=== PATIENT | male | born 1965 | race Caucasian/White ===

== ENCOUNTER 2016-10-17 15:38 | Inpatient (IN) | payer MEDICARE, MEDICAID ==
--- NOTE | 2016-10-17 16:03 | EDM.PDOC ---
ED HPI GENERAL MEDICAL PROBLEM - General Stated Complaint: TOE INFECTED, [id number] Time Seen by Provider: 10/17/16 15:45 Source of Information: Reports: Patient History Limitations: Reports: No Limitations - History of Present Illness INITIAL COMMENTS - FREE TEXT/NARRATIVE: This 50 yo male patient reports to the ED with a 2 day history of right 3rd toe swelling. The patient reports his toe started to swell about 2-3 days ago and has gotten worse. The patient is a diabetic and has had his right 1st and 2nd toe amputated by Dr. Holland in the past. The patient would like to have Dr. Holland evaluate and treat him, but she is currently not in the office. A call to the clinic resulted in Dr. Holland returning this Sunday. Onset Date: 10/14/16 Duration: Constant, Getting Worse Location: Reports: Lower Extremity, Right Severity: Moderate Improves with: Reports: None Worsens with: Reports: None Associated Symptoms: Reports: No Other Symptoms - Related Data Allergies Allergy/AdvReac Type Severity Reaction Status Date / Time vancomycin Allergy Hives Verified 10/17/16 16:06 Home Meds: Home Meds Albuterol [Proair HFA] 1 puff INH Q6HR PRN 01/29/15 [History] Aspirin [Halfprin] 81 mg PO DAILY 01/29/15 [History] Docusate Sodium [Colace] 50 mg PO BID PRN 01/29/15 [History] Fluticasone/Salmeterol [Advair 250-50] 1 puff INH BID 01/29/15 [History] Furosemide [Lasix] 40 mg PO BID 01/29/15 [History] Insulin Glarg,Human.Rec.Analog [LantUS Solostar] 17 units SQ BEDTIME 01/29/15 [ History] Isosorbide Mononitrate [Isosorbide Mononitrate ER] 30 mg PO DAILY 01/29/15 [ History] Losartan [Cozaar] 100 mg PO DAILY 01/29/15 [History] Metoprolol Succinate [Toprol XL] 50 mg PO DAILY 01/29/15 [History] Omeprazole 20 mg PO .AM 01/29/15 [History] Pregabalin [Lyrica] 50 mg PO TID 01/29/15 [History] Sertraline HCl 100 mg PO BID 01/29/15 [History] Simvastatin 10 mg PO BEDTIME 01/29/15 [History] SitaGLIPtin [Januvia] 100 mg PO DAILY 01/29/15 [History] buPROPion [Wellbutrin XL] 150 mg PO DAILY 01/29/15 [History] glipiZIDE [Glucotrol XL] 5 mg PO BID 01/29/15 [History] metFORMIN [Glucophage] 1,000 mg PO BID 01/29/15 [History] Acetaminophen [Tylenol] 650 mg PO Q4H PRN #0 tablet 02/08/15 [Rx] Collagenase Clostridium Hist. [Santyl] 30 gm TP BID #30 gm 02/08/15 [Rx] Hydrocodone/Acetaminophen [Hydrocodon-Acetaminophen 5-325] 1 each PO Q6H PRN # 30 tablet 02/08/15 [Rx] Lanolin/Mineral Oil [Eucerin Original Lotion] 500 ml TP BID #500 ml 02/08/15 [Rx ] Zolpidem [Ambien] 10 mg PO BEDTIME 04/04/15 [History] Naproxen [Naprosyn] 500 mg PO DAILY 05/30/16 [History] Sulfamethoxazole/Trimethoprim [Sulfamethoxazole-Tmp Ds Tablet] 1 tab PO BID [History] Past Medical History HEENT History: Reports: Impaired Vision, Other (See Below) Other HEENT History: WEARS CORRECTIVE LENS Cardiovascular History: Reports: High Cholesterol, Hypertension Respiratory History: Reports: Asthma, COPD, Other (See Below) Other Respiratory History: HX OF TOBACCO ABUSE Gastrointestinal History: Reports: Chronic Constipation, GERD Other Gastrointestinal History: esophageal varices Genitourinary History: Reports: None Musculoskeletal History: Reports: Arthritis, Back Pain, Chronic, Fracture Neurological History: Reports: Neuropathy, Diabetic Psychiatric History: Reports: Depression, Other (See Below) Other Psychiatric History: TOBACCO ABUSE Endocrine/Metabolic History: Reports: Diabetes, Type II Other Endocrine/Metabolic History: diabetic nephropathy Hematologic History: Reports: None Immunologic History: Reports: None Oncologic (Cancer) History: Reports: None Dermatologic History: Reports: Cellulitis Other Dermatologic History: open areas to R) ft - Infectious Disease History Infectious Disease History: Reports: Chicken Pox - Past Surgical History GI Surgical History: Reports: Colonoscopy, Hernia Repair/Other Musculoskeletal Surgical History: Reports: Amputation, Other (See Below) Social & Family History - Tobacco Use Smoking Status *Q: Current Every Day Smoker Years of Tobacco use: 40 Packs/Tins Daily: 0.3 Second Hand Smoke Exposure: Yes - Caffeine Use Caffeine Use: Reports: None - Alcohol Use Days Per Week of Alcohol Use: 7 Number of Drinks Per Day: 12 Total Drinks Per Week: 84 - Recreational Drug Use Recreational Drug Use: Yes Drug Use in Last 12 Months: Yes Recreational Drug Type: Reports: Marijuana/Hashish Recreational Drug Use Frequency: Socially Recreational Drug Last Use: 05/30/16 Review of Systems - Review of Systems Review Of Systems: ROS reveals no pertinent complaints other than HPI. ED EXAM, GENERAL - Physical Exam Exam: See Below Exam Limited By: No Limitations General Appearance: Alert, WD/WN, Moderate Distress Eye Exam: Bilateral Eye: EOMI, Normal Inspection, PERRL Ears: Normal External Exam, Normal Canal, Hearing Grossly Normal, Normal TMs Nose: Normal Inspection, Normal Mucosa, No Blood Throat/Mouth: Normal Inspection, Normal Lips, Normal Teeth, Normal Gums, Normal Oropharynx, Normal Voice, No Airway Compromise Head: Atraumatic, Normocephalic Neck: Normal Inspection, Supple, Non-Tender, Full Range of Motion Respiratory/Chest: No Respiratory Distress, Lungs Clear, Normal Breath Sounds, No Accessory Muscle Use, Chest Non-Tender Cardiovascular: Normal Peripheral Pulses, Regular Rate, Rhythm, No Edema, No Gallop, No JVD, No Murmur, No Rub GI/Abdominal: Normal Bowel Sounds, Soft, Non-Tender, No Organomegaly, No Distention, No Abnormal Bruit, No Mass (Male) Exam: Deferred Rectal (Males) Exam: Deferred Back Exam: Normal Inspection, Full Range of Motion, NT Extremities: Other (The patient does not have any feeling in his feet, but reports increased swelling in his right 3rd toe. ) Neurological: Alert, Oriented, CN II-XII Intact, Normal Cognition, No Motor/ Sensory Deficits Psychiatric: Normal Affect, Normal Mood Skin Exam: Other (The patient's right 3rd toe is erythematous.) Lymphatic: No Adenopathy Course - Vital Signs Last Recorded V/S: Last Vital Signs Temp 37.3 C 10/17/16 17:20 Pulse 91 10/17/16 17:20 Resp 20 10/17/16 17:20 BP 98/60 10/17/16 17:20 Pulse Ox 95 10/17/16 17:20 - Orders/Labs/Meds Orders: Active Orders 24 hr Category Date Time Status CULTURE BLOOD [BC] Stat Lab 10/17/16 15:55 Received CULTURE BLOOD [BC] Stat Lab 10/17/16 16:00 Received Piperacillin/Tazobactam [Zosyn] 3.375 gm Med 10/17/16 17:42 Ordered Sodium Chloride 0.9% [Normal Saline] 100 ml IV ONETIME Blood Culture x2 Reflex Set [OM.PC] Stat Oth 10/17/16 15:45 Ordered Medication Orders Piperacillin Sod/Tazobactam (Sod 3.375 gm/ Sodium Chloride) 100 mls @ 200 mls/ hr IV ONETIME ONE Stop: 10/17/16 18:11 Labs: Laboratory Tests 10/17/16 10/17/16 10/17/16 Range/Units 15:55 15:55 15:55 WBC 17.8 H (5.0-10.0) 10^3/uL RBC 3.89 L (4.6-6.2) 10^6/uL Hgb 12.6 L (14.0-18.0) g/dL Hct 38.1 L (40.0-54.0) % MCV 97.9 (80-100) fL MCH 32.4 (27.0-34.0) pg MCHC 33.1 (33.0-35.0) g/dL Plt Count 162 (150-450) 10^3/uL Neut % (Auto) 86.9 H (42.2-75.2) % Lymph % (Auto) 6.5 L (20.5-50.1) % [place] % (Auto) 5.9 (2-8) % Eos % (Auto) 0.6 L (1.0-3.0) % Baso % (Auto) 0.1 (0.0-1.0) % Add Manual Diff Yes Neutrophils % (Manual) 89 % Lymphocytes % (Manual) 7 % Monocytes % (Manual) 4 % Sodium 135 (135-145) mmol/L Potassium 4.5 (3.6-5.0) mmol/L Chloride 98 L (101-111) mmol/L Carbon Dioxide 22.0 (21.0-31.0) mmol/L Anion Gap 19.5 BUN 19 H (7-18) mg/dL Creatinine 1.2 (0.6-1.3) mg/dL Est Cr Clr Drug Dosing 68.09 mL/min Estimated GFR (MDRD) > 60 BUN/Creatinine Ratio 15.83 Glucose 168 H (74-105) mg/dL Lactic Acid 2.3 H (0.5-2.2) mmol/L Calcium 9.2 (8.4-10.2) mg/dl Total Bilirubin 0.5 (0.2-1.0) mg/dL AST 24 (10-42) IU/L ALT 14 (10-60) IU/L Alkaline Phosphatase 85 (42-121) IU/L Total Protein 8.3 H (6.7-8.2) g/dl Albumin 3.5 (3.2-5.5) g/dl Globulin 4.8 Albumin/Globulin Ratio 0.73 Meds: Medications Generic Name Dose Route Start Last Admin Trade Name Freq PRN Reason Stop Dose Admin Piperacillin Sod/Tazobactam 100 mls @ 200 mls/hr 10/17/16 17:42 Sod 3.375 gm/ Sodium Chloride IV 10/17/16 18:11 ONETIME ONE - Re-Assessments/Exams Free Text/Narrative Re-Assessment/Exam: 10/17/16 17:46 Dr. Holland (podiatry) came to the ED to evaluate the patient. Dr. Holland is going to do surgery on the patient's foot tomorrow. Dr. Holland would like the patient to get a dose of Zosyn in the ED and admit the patient under Dr. Ralph for medical management. Departure - Departure Time of Disposition: 17:49 Disposition: Admitted As Inpatient 65 Condition: Poor Clinical Impression: Osteomyelitis Qualifiers: Osteomyelitis type: unspecified type Osteomyelitis location: foot Laterality: right Qualified Code(s): M86.9 - Osteomyelitis, unspecified - Discharge Information Care Plan Goals: Discussed the examination, lab, x-ray and consult results with Dr. Holland with Dr. Ralph. Dr. Ralph accepted the patient for continued evaluation and management as a inpatient at [facility] in [place]. - My Orders Last 24 Hours: My Active Orders 10/17/16 15:45 Blood Culture x2 Reflex Set [OM.PC] Stat 10/17/16 15:55 CULTURE BLOOD [BC] Stat 10/17/16 16:00 CULTURE BLOOD [BC] Stat 10/17/16 17:42 Piperacillin/Tazobactam [Zosyn] 3.375 gm Sodium Chloride 0.9% [Normal Saline] 100 ml IV ONETIME - Assessment/Plan Last 24 Hours: My Active Orders 10/17/16 15:45 Blood Culture x2 Reflex Set [OM.PC] Stat 10/17/16 15:55 CULTURE BLOOD [BC] Stat 10/17/16 16:00 CULTURE BLOOD [BC] Stat 10/17/16 17:42 Piperacillin/Tazobactam [Zosyn] 3.375 gm Sodium Chloride 0.9% [Normal Saline] 100 ml IV ONETIME
[2016-10-17 16:25] LABS: CHLORIDE,CL 98 mmol/L (101-111); SODIUM,NA 135 mmol/L (135-145)
--- NOTE | 2016-10-17 16:36 | CR ---
Clinical history: 50-year-old male swelling right third toe. Interpretation: AP lateral right foot abnormal. New evidence amputation at the PIP joint right great toe and head of the proximal phalanx adjacent s econd toe since 30 May 2016 exam. Pronounced soft tissue swelling and bony dissolution distal phalanx adjacent third toe right forefoo t... presumably osteomyelitis (definitely abnormal since 30 May) Small heel spurs insertion plantar aponeurosis and Achilles tendon on the os calcis. No metatarsal o r proximal right foot fracture or dislocation. No foreign bodies.
[2016-10-17] MEDS ORDERED: Piperacillin/Tazobactam 3.375 GM in Sodium Chloride 0.9% 100 ML IV ONE (17:42)
--- NOTE | 2016-10-17 17:57 | PCM.CONSN ---
- General Info Date of Service: 10/17/16 Admission Dx/Problem (Free Text): Right foot infected diabetic toe Subjective Update: 50 y/o diabetic male seen in ER today for right foot infected 3rd toe. Pt states he noticed the toe becoming red and swollen about 3 days ago, it has progressively worsened since that time. He has noticed some drainage from the toe and has been dressing with a dry dressing since then. He does have h/o other toe amputations due to osteomyelitis. He denies any n/v/f/c today. He did just eat a bowl of oatmeal 2 hours ago. - Review of Systems General: Reports: Night Sweats - Patient Data Vitals - most recent: Last Vital Signs Temp 37.3 C 10/17/16 17:20 Pulse 91 10/17/16 17:20 Resp 20 10/17/16 17:20 BP 98/60 10/17/16 17:20 Pulse Ox 95 10/17/16 17:20 Weight - most recent: 99.79 kg Lab Results last 24 hrs: Laboratory Results - last 24 hr 10/17/16 10/17/16 10/17/16 Range/Units 15:55 15:55 15:55 WBC 17.8 H (5.0-10.0) 10^3/uL RBC 3.89 L (4.6-6.2) 10^6/uL Hgb 12.6 L (14.0-18.0) g/dL Hct 38.1 L (40.0-54.0) % MCV 97.9 (80-100) fL MCH 32.4 (27.0-34.0) pg MCHC 33.1 (33.0-35.0) g/dL Plt Count 162 (150-450) 10^3/uL Neut % (Auto) 86.9 H (42.2-75.2) % Lymph % (Auto) 6.5 L (20.5-50.1) % [place] % (Auto) 5.9 (2-8) % Eos % (Auto) 0.6 L (1.0-3.0) % Baso % (Auto) 0.1 (0.0-1.0) % Add Manual Diff Yes Neutrophils % (Manual) 89 % Lymphocytes % (Manual) 7 % Monocytes % (Manual) 4 % Sodium 135 (135-145) mmol/L Potassium 4.5 (3.6-5.0) mmol/L Chloride 98 L (101-111) mmol/L Carbon Dioxide 22.0 (21.0-31.0) mmol/L Anion Gap 19.5 BUN 19 H (7-18) mg/dL Creatinine 1.2 (0.6-1.3) mg/dL Est Cr Clr Drug Dosing 68.09 mL/min Estimated GFR (MDRD) > 60 BUN/Creatinine Ratio 15.83 Glucose 168 H (74-105) mg/dL Lactic Acid 2.3 H (0.5-2.2) mmol/L Calcium 9.2 (8.4-10.2) mg/dl Total Bilirubin 0.5 (0.2-1.0) mg/dL AST 24 (10-42) IU/L ALT 14 (10-60) IU/L Alkaline Phosphatase 85 (42-121) IU/L Total Protein 8.3 H (6.7-8.2) g/dl Albumin 3.5 (3.2-5.5) g/dl Globulin 4.8 Albumin/Globulin Ratio 0.73 Med Orders - Current: Current Medications Piperacillin Sod/Tazobactam (Sod 3.375 gm/ Sodium Chloride) 100 mls @ 200 mls/ hr IV ONETIME ONE Stop: 10/17/16 18:11 - Exam General: alert, oriented, no acute distress Physical Findings Comments:: right foot 3rd digit with erythema and edema present, it does have necrotic appearance to the skin of the 3rd toe with wound present to distal tip and also lateral which has some purulent drainage that is expressible from those areas. Pt is not sensate to that forefoot, 1st and 2nd partial amputations on the right foot also. Erythema is extending proximally from the 3rd digit to the forefoot. Foot is warm to touch, palpable DP/PT. Xrays of the right foot reveals osteolysis of distal 3rd digit distal to interphalangeal joint, MTPJ looks healthy, no gas is soft tissues. Consult PN Assessment/Plan Procedures: Procedures ANESTH LOWER LEG BONE SURG (05/31/16) ASSAY OF CK (CPK) (05/03/16) COMPLETE CBC W/AUTO DIFF WBC (06/11/16) COMPREHEN METABOLIC PANEL (06/11/16) CT HEAD/BRAIN W/O DYE (05/03/16) CT NECK SPINE W/O DYE (05/03/16) CULTR BACTERIA EXCEPT BLOOD (05/31/16) CULTURE AEROBIC IDENTIFY (05/31/16) CULTURE OTHR SPECIMN AEROBIC (05/31/16) EMERGENCY DEPT VISIT (06/11/16) EMERGENCY DEPT VISIT (05/03/16) EMERGENCY DEPT VISIT (05/03/16) EMERGENCY DEPT VISIT (04/04/15) GLUCOSE BLOOD TEST (06/11/16) HYDRATE IV INFUSION ADD-ON (06/11/16) HYDRATION IV INFUSION INIT (06/11/16) MICROBE SUSCEPTIBLE BRYON (05/31/16) MRI JNT OF LWR EXTRE W/O DYE (05/21/14) PARTIAL AMPUTATION OF TOE (05/31/16) PROTHROMBIN TIME (05/03/16) ROUTINE VENIPUNCTURE (06/11/16) TDAP VACCINE 7 YRS/> IM (05/03/16) THER/PROPH/DIAG INJ SC/IM (05/03/16) X-RAY EXAM OF HAND (05/03/16) Problem List Initiated/Reviewed/Updated: Yes Plan: Discussed with patient that we will not be able to save that toe, he understands. He will need to be admitted for IV antibiotics due to his foot infection, I will plan on doing the toe amputation with wash out tomorrow account support manager starting at 0630. He is to be NPO after midnight tonight. He will be started on IV Zosyn in the ER and continued on the floor. Cultures were taken in the ER and pending. Depending on what the foot looks like intra operatively, I think he should be able to go home tomorrow after the surgery. For tonight a dry dressing to the toe with post-op shoe, he can be WB on that foot.
[2016-10-17] MEDS ORDERED: Zolpidem 5 MG Tab PO PRN (18:19)
[2016-10-17] MEDS ORDERED: Ondansetron 4 MG/2 ML SDV IVPUSH PRN (18:19)
[2016-10-17] MEDS ORDERED: Polyethylene Glycol 3350 Powder 17 GM Packet PO PRN (18:19)
[2016-10-17] MEDS ORDERED: Sodium Chloride 0.9% 3,000 ML IV SCH (18:30)
--- NOTE | 2016-10-17 18:41 | PCM.HP ---
H&P History of Present Illness - General Date of Service: 10/17/16 Admit Problem/Dx: Right foot infected diabetic toe Right toe osteomyelitis Sepsis Source of Information: Patient History Limitations: Reports: No Limitations - History of Present Illness Initial Comments - Free Text/Narative: 50-year-old male with past medical history of diabetes mellitus type 2, asthma, tobacco abuse, polyneuropathy, insomnia, hypertension, GERD, diabetic nephropathy, COPD, depression presenting to the emergency room with swelling and redness of the right toes started 4 days ago and were getting worse. Patient does not remember injury but he stated that he has been doing carpets washed at home and think he wetted his foot for a long time so his shoe got tight on his toes. He denies pain or drainage from the foot, fever, chills, nausea, shortness breath, cough, chest pain, vomiting, or any other symptoms or concerns. In the emergency room x-ray of the foot was consistent with osteomyelitis in the third right toe. Dr. Holland, police commissioner was consulted who evaluated the patient and planned to do surgery on the right foot tomorrow morning. His WBC 17,000 with left shift. Lactic acid 2.3. Creatinine 1.2. Hemoglobin 12.6. Sodium 135. Potassium 4.5. Glucose 168. He received Zosyn IV in the emergency room. He is allergic to vancomycin. He denies history of MRSA. - Related Data Allergies/Adverse Reactions: Allergies Allergy/AdvReac Type Severity Reaction Status Date / Time vancomycin Allergy Hives Verified 10/17/16 18:28 Home Medications: Home Meds Albuterol [Proair HFA] 1 puff INH Q6HR PRN 01/29/15 [History] Aspirin [Halfprin] 81 mg PO DAILY 01/29/15 [History] Docusate Sodium [Colace] 50 mg PO BID PRN 01/29/15 [History] Fluticasone/Salmeterol [Advair 250-50] 1 puff INH BID 01/29/15 [History] Furosemide [Lasix] 40 mg PO BID 01/29/15 [History] Insulin Glarg,Human.Rec.Analog [LantUS Solostar] 17 units SQ BEDTIME 01/29/15 [ History] Isosorbide Mononitrate [Isosorbide Mononitrate ER] 30 mg PO DAILY 01/29/15 [ History] Losartan [Cozaar] 100 mg PO DAILY 01/29/15 [History] Metoprolol Succinate [Toprol XL] 50 mg PO DAILY 01/29/15 [History] Omeprazole 20 mg PO .AM 01/29/15 [History] Pregabalin [Lyrica] 50 mg PO TID 01/29/15 [History] Sertraline HCl 100 mg PO BID 01/29/15 [History] Simvastatin 10 mg PO BEDTIME 01/29/15 [History] SitaGLIPtin [Januvia] 100 mg PO DAILY 01/29/15 [History] buPROPion [Wellbutrin XL] 150 mg PO DAILY 01/29/15 [History] glipiZIDE [Glucotrol XL] 5 mg PO BID 01/29/15 [History] metFORMIN [Glucophage] 1,000 mg PO BID 01/29/15 [History] Acetaminophen [Tylenol] 650 mg PO Q4H PRN #0 tablet 02/08/15 [Rx] Collagenase Clostridium Hist. [Santyl] 30 gm TP BID #30 gm 02/08/15 [Rx] Hydrocodone/Acetaminophen [Hydrocodon-Acetaminophen 5-325] 1 each PO Q6H PRN # 30 tablet 02/08/15 [Rx] Lanolin/Mineral Oil [Eucerin Original Lotion] 500 ml TP BID #500 ml 02/08/15 [Rx ] Zolpidem [Ambien] 10 mg PO BEDTIME 04/04/15 [History] Naproxen [Naprosyn] 500 mg PO DAILY 05/30/16 [History] Sulfamethoxazole/Trimethoprim [Sulfamethoxazole-Tmp Ds Tablet] 1 tab PO BID [History] Past Medical History HEENT History: Reports: Impaired Vision, Other (See Below) Other HEENT History: WEARS CORRECTIVE LENS Cardiovascular History: Reports: High Cholesterol, Hypertension Respiratory History: Reports: Asthma, COPD, Other (See Below) Other Respiratory History: HX OF TOBACCO ABUSE Gastrointestinal History: Reports: Chronic Constipation, GERD Other Gastrointestinal History: esophageal varices Genitourinary History: Reports: None Musculoskeletal History: Reports: Arthritis, Back Pain, Chronic, Fracture Neurological History: Reports: Neuropathy, Diabetic Psychiatric History: Reports: Depression, Other (See Below) Other Psychiatric History: TOBACCO ABUSE Endocrine/Metabolic History: Reports: Diabetes, Type II Other Endocrine/Metabolic History: diabetic nephropathy Hematologic History: Reports: None Immunologic History: Reports: None Oncologic (Cancer) History: Reports: None Dermatologic History: Reports: Cellulitis Other Dermatologic History: open areas to R) ft - Infectious Disease History Infectious Disease History: Reports: Chicken Pox - Past Surgical History GI Surgical History: Reports: Colonoscopy, Hernia Repair/Other Musculoskeletal Surgical History: Reports: Amputation, Other (See Below) Social & Family History - Tobacco Use Smoking Status *Q: Current Every Day Smoker Years of Tobacco use: 40 Packs/Tins Daily: 0.3 Second Hand Smoke Exposure: Yes - Caffeine Use Caffeine Use: Reports: None - Alcohol Use Days Per Week of Alcohol Use: 7 Number of Drinks Per Day: 12 Total Drinks Per Week: 84 - Recreational Drug Use Recreational Drug Use: Yes Drug Use in Last 12 Months: Yes Recreational Drug Type: Reports: Marijuana/Hashish Recreational Drug Use Frequency: Socially Recreational Drug Last Use: 05/30/16 H&P Review of Systems - Review of Systems: Review Of Systems: See Below General: Reports: No Symptoms HEENT: Reports: No Symptoms Pulmonary: Reports: No Symptoms Cardiovascular: Reports: No Symptoms Gastrointestinal: Reports: No Symptoms Genitourinary: Reports: No Symptoms Musculoskeletal: Reports: No Symptoms, Other (Other than what mentioned in history of present illness for the right foot) Skin: Denies: Jaundice, Pallor, Diaphoresis Psychiatric: Reports: No Symptoms Exam - Exam Exam: See Below - Vital Signs Vital Signs: Last Vital Signs Temp 36.6 C 10/17/16 18:24 Pulse 90 10/17/16 18:24 Resp 16 10/17/16 18:24 BP 100/69 10/17/16 18:24 Pulse Ox 97 10/17/16 18:24 Weight: 99.79 kg - Exam General: Alert, Oriented, Cooperative. No: Mild Distress, Moderate Distress, Severe Distress, Sedated, Lethargic, Obtunded HEENT: Conjunctiva Clear, EACs Clear, EOMI, Hearing Intact, Mucosa Moist & [place] , Nares Patent, Normal Nasal Septum, Posterior Pharynx Clear, Pupils Equal, Pupils Reactive Neck: Supple, Trachea Midline Lungs: Normal Respiratory Effort, Wheezing. No: Decreased Breath Sounds, Crackles, Rales, Rhonchi, Rub, Stridor Cardiovascular: Regular Rate, Regular Rhythm Abdomen: Normal Bowel Sounds, Soft, Pelvis Stable (Male) Exam: Deferred Rectal (Males) Exam: Deferred Back Exam: Normal Inspection, Full Range of Motion Extremities: Other (Right foot: First and second toes are amputated and the rest of the toes are swelling and red with no tenderness or sensation. Dorsalis pedal pulse pulse is difficult to palpate however was able to palpate the posterior tibial pulse. Left lower extremity normal) Skin: Warm, Dry, Intact, Other (Other than right foot redness and swelling) Neurological: Cranial Nerves Intact, Strength Equal Bilateral, Normal Speech, Normal Tone. No: Focal Deficit Neuro Extensive - Mental Status: Alert, Oriented x3, Normal Mood/Affect, Normal Cognition, Memory Intact Neuro Extensive - Motor, Sensory, Reflexes: CN II-XII Intact, Normal Gait, Normal Reflexes Psychiatric: Alert, Normal Affect, Normal Mood. No: Anxious, Depressed, Agitated, Suicidal Ideation, Homicidal Ideation, Hallucinations, Withdrawal Symptoms - Patient Data Result Diagrams: 10/17/16 15:55 10/17/16 15:55 *Q Meaningful Use (ADM) - VTE *Q VTE Criteria *Q: - Stroke *Q Stroke Criteria *Q: - AMI *Q AMI Criteria *Q: - Problem List (1) Sepsis SNOMED Code(s): 73286617 ICD Code: A41.9 - SEPSIS, UNSPECIFIED ORGANISM Status: Acute Priority: High Current Visit: Yes (2) Substance abuse SNOMED Code(s): 21618100 ICD Code: F19.10 - OTHER PSYCHOACTIVE SUBSTANCE ABUSE, UNCOMPLICATED Status : Acute Current Visit: Yes (3) Osteomyelitis SNOMED Code(s): 62914413 ICD Code: M86.9 - OSTEOMYELITIS, UNSPECIFIED Status: Acute Priority: High Current Visit: Yes Qualifiers: Osteomyelitis type: unspecified type Osteomyelitis location: foot Laterality: right Qualified Code(s): M86.9 - Osteomyelitis, unspecified (4) Type 2 diabetes mellitus with right diabetic foot infection SNOMED Code(s): 19086818 ICD Code: E11.69 - TYPE 2 DIABETES MELLITUS WITH OTHER SPECIFIED COMPLICATION ; L08.9 - LOCAL INFECTION OF THE SKIN AND SUBCUTANEOUS TISSUE, UNSP Status: Acute Priority: Medium Current Visit: No Onset Date: 01/29/15 (5) Diabetic peripheral neuropathy associated with type 2 diabetes mellitus SNOMED Code(s): 7606388641380, 9805681454398 ICD Code: E11.42 - TYPE 2 DIABETES MELLITUS WITH DIABETIC POLYNEUROPATHY Status: Chronic Current Visit: No Problem List Initiated/Reviewed/Updated: Yes Orders Last 24hrs: Active Orders 24 hr Category Date Time Status Patient Status [ADT] Routine ADT 10/17/16 18:24 Active Blood Glucose Check, Bedside [RC] QIDACANDBED Care 10/17/16 18:19 Active Height and Weight [RC] DAILY Care 10/17/16 18:19 Active Intake and Output [RC] Q6H Care 10/17/16 18:25 Active Oxygen Therapy [RC] PRN Care 10/17/16 18:24 Active Up ad Catherine [RC] ASDIRECTED Care 10/17/16 18:19 Active VTE/DVT Education [RC] PER UNIT ROUTINE Care 10/17/16 18:24 Active Vital Signs [RC] Q4H Care 10/17/16 18:24 Active OT Evaluation and Treatment [CONS] Routine Cons 10/17/16 18:19 Active PT Evaluation and Treatment [CONS] Routine Cons 10/17/16 18:19 Active Consistent Carbohydrate Diet [DIET] Diet 10/17/16 Breakfast Active Nothing per Oral After Midnight Diet [DIET] Diet 10/17/16 Breakfast Active BASIC METABOLIC PANEL,BMP [CHEM] AM Lab 10/18/16 05:11 Ordered C-REACTIVE PROTEIN [REF] Timed Lab 10/18/16 05:00 Ordered CBC WITH AUTO DIFF [HEME] AM Lab 10/18/16 05:11 Ordered MAGNESIUM [CHEM] AM Lab 10/18/16 05:11 Ordered PHOSPHORUS [CHEM] AM Lab 10/18/16 05:11 Ordered Acetaminophen [Tylenol] Med 10/17/16 18:19 Ordered 650 mg PO Q4H PRN Acetaminophen/HYDROcodone [[place] 325-10 MG] Med 10/17/16 18:19 Ordered 0.5 tab PO Q4H PRN Heparin Sodium Med 10/17/16 22:00 Ordered 5,000 units SUBCUT Q8HR Insulin Aspart [NovoLOG] Med 10/17/16 21:00 Ordered See Protocol SUBCUT QIDACANDBED Morphine Med 10/17/16 18:19 Ordered 2 mg IVPUSH Q2H PRN Ondansetron [Zofran] Med 10/17/16 18:19 Ordered 4 mg IVPUSH Q6H PRN Piperacillin/Tazobactam [Zosyn] 3.375 gm Med 10/17/16 18:45 Ordered Sodium Chloride 0.9% [Normal Saline] 100 ml IV Q6H Polyethylene Glycol 3350 [MiraLAX] Med 10/17/16 18:19 Ordered 17 gm PO DAILY PRN Sodium Chloride 0.9% [Normal Saline] 3,000 ml Med 10/17/16 18:30 Ordered IV .BOLUS Zolpidem [Ambien] Med 10/17/16 18:19 Ordered 5 mg PO BEDTIME PRN Resuscitation Status Routine Resus Stat 10/17/16 18:19 Ordered Medication Orders Acetaminophen (Tylenol) 650 mg PO Q4H PRN PRN Reason: Pain (Mild 1-3)/fever Hydrocodone Bitart/Acetaminophen ([place] 325-10 Mg) 0.5 tab PO Q4H PRN PRN Reason: Pain (moderate 4-6) Heparin Sodium (Porcine) (Heparin Sodium) 5,000 units SUBCUT Q8HR CHARY Sodium Chloride (Normal Saline) 3,000 mls @ 999 mls/hr IV .BOLUS CHARY Piperacillin Sod/Tazobactam (Sod 3.375 gm/ Sodium Chloride) 100 mls @ 200 mls/ hr IV Q6H CHARY Insulin Aspart (Novolog) 0 unit SUBCUT QIDACANDBED CHARY PRN Reason: Protocol Morphine Sulfate (Morphine) 2 mg IVPUSH Q2H PRN PRN Reason: Pain (severe 7-10) Ondansetron HCl (Zofran) 4 mg IVPUSH Q6H PRN PRN Reason: Nausea/Vomiting Polyethylene Glycol (Miralax) 17 gm PO DAILY PRN PRN Reason: Constipation Zolpidem Tartrate (Ambien) 5 mg PO BEDTIME PRN PRN Reason: Sleep Assessment/Plan Comment:: Sepsis Elevated WBC, rapid heart rate, elevated lactic acid was source of infection in the right foot Continue Zosyn Plan for foot surgery in the morning -Awaiting blood cultures -Give 30/ml per kilogram as a bolus I/Os Daily weight Osteo-myelitis of right foot/toes Zosyn Surgical intervention by police commissioner, Dr. Holland tomorrow morning -NPO diet after midnight COPD, chronic with wheezing Assume respiratory medications that he takes at home -DuoNeb every 6 hours scheduled Avoid oral steroids since his symptoms are not severe and has sepsis -We'll do chest x-ray Diabetes mellitus type 2 in obese patient Resume home antihyperglycemic medications Sliding scale insulin Diabetic diet -Check hemoglobin A1c Essential hypertension Resume blood pressure medications that he takes at home Depression, stable Assume home medications Neuropathy Resume home medications Alcohol abuse Watch for withdrawal symptoms Substance abuse He admits using marijuana He needs to seek outpatient counseling Heparin for DVT prophylaxis I will consult physical and occupational therapy to evaluate the patient after surgery for discharge planning He wants to be full code
[2016-10-17] MEDS ORDERED: DOCUSATE SODIUM 50 MG PO PRN (18:46)
[2016-10-17] MEDS ORDERED: ALBUTEROL INH PRN (18:46)
[2016-10-17] MEDS ORDERED: Nicotine 21 MG/24 Hr Patch TRDERM PRN (18:59)
[2016-10-17] MEDS: Sodium Chloride 0.9% 1,000 ML IV SCH ×3 (20:21→22:32)
[2016-10-17] MEDS: Omeprazole 20 MG Cap.CR PO SCH (20:46)
[2016-10-17] MEDS: Simvastatin 10 MG Tab PO SCH (20:47)
[2016-10-17] MEDS: Sertraline 50 MG Tab PO SCH (20:47)
[2016-10-17] MEDS: Pregabalin 50 MG Cap PO SCH (20:47)
[2016-10-17] MEDS: metFORMIN 500 MG Tab PO SCH (20:48)
[2016-10-17] MEDS: glipiZIDE 5 MG Tab.ER PO SCH (20:48)
[2016-10-17] MEDS: Zolpidem 5 MG Tab PO SCH (20:48)
[2016-10-17] MEDS: Insulin Detemir 100 Units/ML 3 ML Pen SUBCUT SCH (21:08)
[2016-10-17] MEDS: Insulin Aspart 100 Units/ML 3 ML Pen SUBCUT SCH (21:09)
[2016-10-17] MEDS: Acetaminophen/HYDROcodone 325-10 MG Tab PO PRN (21:10)
[2016-10-17] MEDS: Heparin Sodium 5,000 Units/ML Vial SUBCUT SCH (21:29)
[2016-10-17] MEDS: Piperacillin/Tazobactam 3.375 GM in Sodium Chloride 0.9% 100 ML IV SCH (23:36)
[2016-10-18] MEDS: Albuterol/Ipratropium 3.0-0.5 MG/3 ML Neb Soln NEB SCH ×4 (01:21→18:08)
[2016-10-18] MEDS: Morphine 2 MG/ML Syringe IVPUSH PRN ×3 (03:01→19:53)
[2016-10-18] MEDS: Heparin Sodium 5,000 Units/ML Vial SUBCUT SCH ×3 (05:14→21:52)
[2016-10-18] MEDS: Piperacillin/Tazobactam 3.375 GM in Sodium Chloride 0.9% 100 ML IV SCH ×3 (05:14→17:44)
[2016-10-18] MEDS ORDERED: Bupivacaine 0.5% 10 ML SDV ONE (05:54)
[2016-10-18] MEDS ORDERED: Lidocaine 1% 30 ML SDV ONE (05:54)
[2016-10-18] MEDS ORDERED: Metoprolol Succinate 50 MG Tab.ER ONE (06:16)
[2016-10-18] MEDS ORDERED: Isosorbide Mononitrate 30 MG Tab.ER ONE (06:23)
[2016-10-18] MEDS: Isosorbide Mononitrate 30 MG Tab.ER PO SCH ×2 (06:26→08:38)
[2016-10-18] MEDS: Omeprazole 20 MG Cap.CR PO SCH ×3 (06:27→21:46)
[2016-10-18] MEDS ORDERED: Ondansetron 4 MG/2 ML SDV ONE (06:31)
[2016-10-18] MEDS ORDERED: Propofol 200 MG/20 ML SDV ONE (06:31)
[2016-10-18] MEDS ORDERED: Midazolam 1 MG/ML 2 ML SDV ONE (06:31)
[2016-10-18] MEDS ORDERED: fentaNYL 100 MCG/2 ML SDV ONE (06:31)
[2016-10-18] MEDS ORDERED: Famotidine 20 MG/2 ML SDV ONE (06:32)
[2016-10-18] MEDS ORDERED: Lidocaine 2% 20 ML MDV ONE (06:33)
[2016-10-18] MEDS ORDERED: ePHEDrine 50 MG/ML SDV ONE (06:33)
[2016-10-18] MEDS ORDERED: Succinylcholine 200 MG/10 ML MDV ONE (06:33)
[2016-10-18] MEDS ORDERED: Phenylephrine 1% 10 MG/ML SDV ONE (06:33)
[2016-10-18] MEDS ORDERED: Gentamicin 40 MG/ML 2 ML Vial ONE ×4 (06:34→07:46)
[2016-10-18 06:56] LABS: CHLORIDE,CL 103 mmol/L (101-111); SODIUM,NA 138 mmol/L (135-145)
[2016-10-18] MEDS ORDERED: Lidocaine 1% 30 ML SDV INJECT ONE ×4 (07:20→17:11)
[2016-10-18] MEDS ORDERED: Bupivacaine 0.5% 10 ML SDV INJECT ONE ×4 (07:20→17:11)
--- NOTE | 2016-10-18 07:52 | PCM.PN ---
- General Info Date of Service: 10/18/16 Admission Dx/Problem (Free Text): sepsis with right foot infection Subjective Update: Patient is feeling the same, he had an uneventful night. Patient denies chest pain, shortness of breath, cough, abdominal pain overnight. He denies fever, chills, nausea or vomiting. There was no change in his foot symptoms. He has no questions about surgery today. - Patient Data Vitals - most recent: Last Vital Signs Temp 36.9 C 10/18/16 05:58 Pulse 80 10/18/16 06:27 Resp 16 10/18/16 05:58 BP 98/48 L 10/18/16 06:27 Pulse Ox 97 10/18/16 05:58 Weight - most recent: 99.79 kg I&O - last 24 hours: Intake & Output 10/17/16 10/18/16 10/18/16 22:59 06:59 14:59 Intake Total 95 3478 Balance 95 3478 Lab Results last 24 hrs: Laboratory Results - last 24 hr 10/17/16 10/18/16 10/18/16 Range/Units 21:07 06:18 06:18 WBC 11.6 H (5.0-10.0) 10^3/uL RBC 3.39 L (4.6-6.2) 10^6/uL Hgb 10.8 L (14.0-18.0) g/dL Hct 33.4 L (40.0-54.0) % MCV 98.5 (80-100) fL MCH 31.9 (27.0-34.0) pg MCHC 32.3 L (33.0-35.0) g/dL Plt Count 125 L (150-450) 10^3/uL Neut % (Auto) 77.9 H (42.2-75.2) % Lymph % (Auto) 13.5 L (20.5-50.1) % [place] % (Auto) 7.5 (2-8) % Eos % (Auto) 0.9 L (1.0-3.0) % Baso % (Auto) 0.2 (0.0-1.0) % Sodium 138 (135-145) mmol/L Potassium 4.5 (3.6-5.0) mmol/L Chloride 103 (101-111) mmol/L Carbon Dioxide 23.0 (21.0-31.0) mmol/L Anion Gap 16.5 BUN 17 (7-18) mg/dL Creatinine 1.1 (0.6-1.3) mg/dL Est Cr Clr Drug Dosing 74.28 mL/min Estimated GFR (MDRD) > 60 Glucose 87 (74-105) mg/dL POC Glucose 127 H (70-105) mg/dl Lactic Acid (0.5-2.2) mmol/L Calcium 8.3 L (8.4-10.2) mg/dl Phosphorus 2.5 (2.5-4.6) mg/dL Magnesium 1.5 L (1.8-2.5) mg/dL C-Reactive Protein (0.0-1.3) mg/dL 10/18/16 10/18/16 Range/Units 06:18 06:24 WBC (5.0-10.0) 10^3/uL RBC (4.6-6.2) 10^6/uL Hgb (14.0-18.0) g/dL Hct (40.0-54.0) % MCV (80-100) fL MCH (27.0-34.0) pg MCHC (33.0-35.0) g/dL Plt Count (150-450) 10^3/uL Neut % (Auto) (42.2-75.2) % Lymph % (Auto) (20.5-50.1) % [place] % (Auto) (2-8) % Eos % (Auto) (1.0-3.0) % Baso % (Auto) (0.0-1.0) % Sodium (135-145) mmol/L Potassium (3.6-5.0) mmol/L Chloride (101-111) mmol/L Carbon Dioxide (21.0-31.0) mmol/L Anion Gap BUN (7-18) mg/dL Creatinine (0.6-1.3) mg/dL Est Cr Clr Drug Dosing mL/min Estimated GFR (MDRD) Glucose (74-105) mg/dL POC Glucose (70-105) mg/dl Lactic Acid 1.2 (0.5-2.2) mmol/L Calcium (8.4-10.2) mg/dl Phosphorus (2.5-4.6) mg/dL Magnesium (1.8-2.5) mg/dL C-Reactive Protein > 20.0 H (0.0-1.3) mg/dL Med Orders - Current: Current Medications Acetaminophen (Tylenol) 650 mg PO Q4H PRN PRN Reason: Pain (Mild 1-3)/fever Hydrocodone Bitart/Acetaminophen ([place] 325-10 Mg) 0.5 tab PO Q4H PRN PRN Reason: Pain (moderate 4-6) Last Admin: 10/17/16 21:10 Dose: 0.5 tab Albuterol (Proventil Hfa) gm INH Q6HR PRN PRN Reason: Shortness of Breath Albuterol/Ipratropium (Duoneb 3.0-0.5 Mg/3 Ml) 3 ml NEB Q6HRRT [facility] Last Admin: 10/18/16 06:28 Dose: 3 ml Aspirin (Halfprin) 81 mg PO DAILY [facility] Bupropion HCl (Wellbutrin Xl) 150 mg PO DAILY [facility] Furosemide (Lasix) 20 mg PO DAILY [facility] Glipizide (Glucotrol Xl) 5 mg PO BID [facility] Last Admin: 10/17/16 20:48 Dose: 5 mg Heparin Sodium (Porcine) (Heparin Sodium) 5,000 units SUBCUT Q8HR [facility] Last Admin: 10/18/16 05:14 Dose: 5,000 units Piperacillin Sod/Tazobactam (Sod 3.375 gm/ Sodium Chloride) 100 mls @ 200 mls/ hr IV Q6H [facility] Last Admin: 10/18/16 05:14 Dose: 200 mls/hr Sodium Chloride (Normal Saline) 1,000 mls @ 999 mls/hr IV ASDIRECTED [facility] Stop: 10/19/16 21:01 Last Admin: 10/17/16 22:32 Dose: 999 mls/hr Insulin Aspart (Novolog) 0 unit SUBCUT QIDACANDBED [facility] PRN Reason: Protocol Last Admin: 10/17/16 21:09 Dose: Not Given Insulin Detemir (Levemir) 17 unit SUBCUT BEDTIME [facility] Last Admin: 10/17/16 21:08 Dose: 17 units Isosorbide Mononitrate (Imdur) 30 mg PO DAILY [facility] Last Admin: 10/18/16 06:26 Dose: 30 mg Losartan Potassium (Cozaar) 100 mg PO DAILY [facility] Metformin HCl (Glucophage) 1,000 mg PO BID [facility] Last Admin: 10/17/16 20:48 Dose: 1,000 mg Metoprolol Succinate (Toprol Xl) 50 mg PO DAILY [facility] Mometasone Furoate/Formoterol Fumar (Dulera 200-5 Mcg) 0 puff IH DAILY [facility] Morphine Sulfate (Morphine) 2 mg IVPUSH Q2H PRN PRN Reason: Pain (severe 7-10) Last Admin: 10/18/16 03:01 Dose: 2 mg Nicotine (Habitrol) 21 mg TRDERM DAILY PRN PRN Reason: Nicotine withdrawal Docusate Sodium [ (Colace] 50mg) 50 mg PO BID PRN PRN Reason: Constipation Sitagliptin [Januvia (] 100mg) 100 mg PO DAILY [facility] Omeprazole (Omeprazole) 20 mg PO BID [facility] Last Admin: 10/18/16 06:27 Dose: 20 mg Ondansetron HCl (Zofran) 4 mg IVPUSH Q6H PRN PRN Reason: Nausea/Vomiting Polyethylene Glycol (Miralax) 17 gm PO DAILY PRN PRN Reason: Constipation Pregabalin (Lyrica) 200 mg PO TID [facility] Last Admin: 10/17/16 20:47 Dose: 200 mg Sertraline HCl (Zoloft) 100 mg PO BID [facility] Last Admin: 10/17/16 20:47 Dose: 100 mg Simvastatin (Zocor) 10 mg PO BEDTIME [facility] Last Admin: 10/17/16 20:47 Dose: 10 mg Zolpidem Tartrate (Ambien) 10 mg PO BEDTIME [facility] Last Admin: 10/17/16 20:48 Dose: 10 mg Discontinued Medications Bupivacaine HCl (Sensorcaine-Mpf 0.5%) Confirm Administered Dose 20 ml .ROUTE .STK-MED ONE Stop: 10/18/16 05:55 Bupivacaine HCl (Sensorcaine-Mpf 0.5%) 5 ml INJECT .STK-MED ONE Stop: 10/18/16 07:21 Ephedrine Sulfate (Ephedrine Sulfate) Confirm Administered Dose 50 mg .ROUTE .STK-MED ONE Stop: 10/18/16 06:34 Famotidine (Pepcid) Confirm Administered Dose 20 mg .ROUTE .STK-MED ONE Stop: 10/18/16 06:33 Fentanyl (Sublimaze) Confirm Administered Dose 100 mcg .ROUTE .STK-MED ONE Stop: 10/18/16 06:32 Gentamicin Sulfate (Gentamicin) Confirm Administered Dose 80 mg .ROUTE .STK-MED ONE Stop: 10/18/16 06:35 Gentamicin Sulfate (Gentamicin) 80 mg .XX .ST-MED ONE Stop: 10/18/16 07:38 Gentamicin Sulfate (Gentamicin) Confirm Administered Dose 80 mg .ROUTE .ST-MED ONE Stop: 10/18/16 07:42 Piperacillin Sod/Tazobactam (Sod 3.375 gm/ Sodium Chloride) 100 mls @ 200 mls/ hr IV ONETIME ONE Stop: 10/17/16 18:11 Last Admin: 10/17/16 18:02 Dose: 200 mls/hr Isosorbide Mononitrate (Imdur) Confirm Administered Dose 30 mg .ROUTE .ST-MED ONE Stop: 10/18/16 06:24 Last Admin: 10/18/16 06:33 Dose: Not Given Lidocaine HCl (Xylocaine-Mpf 1%) Confirm Administered Dose 30 ml .ROUTE .ST- MED ONE Stop: 10/18/16 05:55 Lidocaine HCl (Xylocaine 2%) Confirm Administered Dose 20 ml .ROUTE .ST-MED ONE Stop: 10/18/16 06:34 Lidocaine HCl (Xylocaine-Mpf 1%) 5 ml INJECT .ST-MED ONE Stop: 10/18/16 07:21 Last Admin: 10/18/16 07:20 Dose: 5 ml Metoprolol Succinate (Toprol Xl) Confirm Administered Dose 50 mg .ROUTE .[facility]- MED ONE Stop: 10/18/16 06:17 Last Admin: 10/18/16 06:27 Dose: 50 mg Midazolam HCl (Versed 1 Mg/Ml) Confirm Administered Dose 4 mg .ROUTE .ST-MED ONE Stop: 10/18/16 06:32 Ondansetron HCl (Zofran) Confirm Administered Dose 4 mg .ROUTE .ST-MED ONE Stop: 10/18/16 06:32 Phenylephrine HCl (Agustin-Synephrine) Confirm Administered Dose 10 mg .ROUTE .ST- MED ONE Stop: 10/18/16 06:34 Propofol (Diprivan 20 Ml) Confirm Administered Dose 600 mg .ROUTE .STK-MED ONE Stop: 10/18/16 06:32 Succinylcholine Chloride (Quelicin) Confirm Administered Dose 200 mg .ROUTE .STK -MED ONE Stop: 10/18/16 06:34 Zolpidem Tartrate (Ambien) 5 mg PO BEDTIME PRN PRN Reason: Sleep - Exam General: alert, oriented, cooperative, no acute distress. No: mild distress, moderate distress, severe distress, sedated, lethargic, obtunded HEENT: Pupils equal, EOMI, Mucous membr. moist/pink Neck: supple, trachea midline, no JVD Lungs: Normal respiratory effort, Wheezing. No: Decreased breath sounds, Crackles, Rales, Rhonchi, Rub, Stridor Cardiovascular: Regular Rate, Regular Rhythm. No: No Murmurs, Irregular Rhythm , Bradycardia, Tachycardia, Murmurs, Gallops, Rubs Abdomen: bowel sounds present, soft, no tenderness, no distension (Male) Exam: Deferred Extremities: no edema Skin: warm, dry, intact Neurological: no new focal deficit Psy/Mental Status: alert, normal affect, normal mood - Problem List & Annotations (1) Sepsis SNOMED Code(s): 29209488 Code(s): A41.9 - SEPSIS, UNSPECIFIED ORGANISM Status: Acute Priority: High Current Visit: Yes (2) Substance abuse SNOMED Code(s): 70711553 Code(s): F19.10 - OTHER PSYCHOACTIVE SUBSTANCE ABUSE, UNCOMPLICATED Status : Acute Current Visit: Yes (3) Osteomyelitis SNOMED Code(s): 26398964 Code(s): M86.9 - OSTEOMYELITIS, UNSPECIFIED Status: Acute Priority: High Current Visit: Yes Qualifiers: Osteomyelitis type: unspecified type Osteomyelitis location: foot Laterality: right Qualified Code(s): M86.9 - Osteomyelitis, unspecified (4) Type 2 diabetes mellitus with right diabetic foot infection SNOMED Code(s): 91623380 Code(s): E11.69 - TYPE 2 DIABETES MELLITUS WITH OTHER SPECIFIED COMPLICATION ; L08.9 - LOCAL INFECTION OF THE SKIN AND SUBCUTANEOUS TISSUE, UNSP Status: Acute Priority: Medium Current Visit: No Onset Date: 01/29/15 (5) Diabetic peripheral neuropathy associated with type 2 diabetes mellitus SNOMED Code(s): 1707550420304, 5569954456962 Code(s): E11.42 - TYPE 2 DIABETES MELLITUS WITH DIABETIC POLYNEUROPATHY Status: Chronic Current Visit: No - Problem List Review Problem List Initiated/Reviewed/Updated: Yes - My Orders Last 24 Hours: My Active Orders 10/17/16 18:46 Albuterol [Proventil HFA] DOSE gm INH Q6HR PRN Docusate Sodium [Colace] 50 mg PO BID PRN 10/17/16 18:52 Incentive Spirometry [RT Incentive Spirometry] [RC] ASDIRECTED RT Aerosol Therapy [RC] ASDIRECTED 10/17/16 18:59 Nicotine [Habitrol] 21 mg TRDERM DAILY PRN 10/17/16 20:00 Sodium Chloride 0.9% [Normal Saline] 1,000 ml IV ASDIRECTED 10/17/16 21:00 Insulin Aspart [NovoLOG] See Protocol SUBCUT QIDACANDBED Insulin Detemir [Levemir] 17 unit SUBCUT BEDTIME Omeprazole 20 mg PO BID Pregabalin [Lyrica] 200 mg PO TID Sertraline [Zoloft] 100 mg PO BID Simvastatin [Zocor] 10 mg PO BEDTIME Zolpidem [Ambien] 10 mg PO BEDTIME glipiZIDE [Glucotrol XL] 5 mg PO BID metFORMIN [Glucophage] 1,000 mg PO BID 10/18/16 00:00 Piperacillin/Tazobactam [Zosyn] 3.375 gm Sodium Chloride 0.9% [Normal Saline] 100 ml IV Q6H 10/18/16 01:00 Albuterol/Ipratropium [DuoNeb 3.0-0.5 MG/3 ML] 3 ml NEB Q6HRRT 10/18/16 09:00 Aspirin [Halfprin] 81 mg PO DAILY Furosemide [Lasix] 20 mg PO DAILY Isosorbide Mononitrate [Imdur] 30 mg PO DAILY Losartan [Cozaar] 100 mg PO DAILY Metoprolol Succinate [Toprol XL] 50 mg PO DAILY Mometasone/Formoterol [Dulera 200-5 MCG] 0 puff IH DAILY SitaGLIPtin [Januvia] 100 mg PO DAILY buPROPion [Wellbutrin XL] 150 mg PO DAILY 10/19/16 05:11 BASIC METABOLIC PANEL,BMP [CHEM] AM CBC WITH AUTO DIFF [HEME] AM CRP [C-REACTIVE PROTEIN] [CHEM] AM - Plan Plan:: Sepsis On admission: Elevated WBC, rapid heart rate, elevated lactic acid was source of infection in the right foot He received 30/ml per kilogram as a bolus on admission. -white cells went down this morning Continue Zosyn -Plan for foot surgery this morning -Awaiting blood cultures I/Os Daily weight Will recheck CBC in am. Osteo-myelitis of right foot/toes Zosyn -Surgical intervention by raw shellfish preparer, Dr. Holland today. -post surgical care COPD, chronic with wheezing Assume respiratory medications that he takes at home -DuoNeb every 6 hours scheduled Avoid oral steroids since his symptoms are not severe and has sepsis chest x-ray on admission showed no acute findings Hypomagnesemia -replace magnesium today by IV -recheck magnesium in am Diabetes mellitus type 2 in obese patient Resume home antihyperglycemic medications Sliding scale insulin Diabetic diet -Check hemoglobin A1c Essential hypertension Resume blood pressure medications that he takes at home Depression, stable Assume home medications Neuropathy Resume home medications Alcohol abuse Watch for withdrawal symptoms Substance abuse He admits using marijuana He needs to seek outpatient counseling Heparin for DVT prophylaxis I will consult physical and occupational therapy to evaluate the patient after surgery for discharge planning He wants to be full code
[2016-10-18] MEDS ORDERED: Magnesium Sulfate/Water 2 GM in Premix Bag 1 BAG IV ONE (08:00)
--- NOTE | 2016-10-18 08:28 | PCM.OPNOTE ---
- General Post-Op/Procedure Note Date of Surgery/Procedure: 10/18/16 Operative Procedure(s): right foot 3rd digit amputation with debridement and wash out Pre Op Diagnosis: right foot diabetic toe injection with osteomyelitis Post-Op Diagnosis: orquidea Anesthesia Technique: Local, MAC Primary Surgeon: Cathi Holland Anesthesia Provider: Olman Soriano EBL in mLs: 10 Complications: none Condition: Good Free Text/Narrative:: Intake & Output 10/17/16 10/18/16 10/18/16 22:59 06:59 14:59 Intake Total 95 3478 Balance 95 3478 Pt tolerated procedure well. TT 7 mins, taken down before closure. Well padded dressing with post op shoe applied. Pre and post irrigation cultures obtained. Irrigation with gentamycin solution.
[2016-10-18] MEDS: Metoprolol Succinate 50 MG Tab.ER PO SCH (08:38)
[2016-10-18] MEDS: Insulin Aspart 100 Units/ML 3 ML Pen SUBCUT SCH ×4 (08:44→21:39)
[2016-10-18] MEDS ORDERED: Formoterol/Mometasone 200-5 MCG 8.8 GM Inhaler IH SCH (09:00)
[2016-10-18] MEDS ORDERED: Docusate Sodium 100 MG Cap PO PRN (09:24)
[2016-10-18] MEDS: buPROPion 150 MG Tab.ER PO SCH (09:53)
[2016-10-18] MEDS: metFORMIN 500 MG Tab PO SCH ×2 (09:54→21:45)
[2016-10-18] MEDS: Pregabalin 50 MG Cap PO SCH ×3 (09:54→21:46)
[2016-10-18] MEDS: Losartan 50 MG Tab PO SCH (09:55)
[2016-10-18] MEDS: Sertraline 50 MG Tab PO SCH ×2 (10:00→21:45)
[2016-10-18] MEDS: Aspirin 81 MG Tab.EC PO SCH (10:00)
[2016-10-18] MEDS: Furosemide 20 MG Tab PO SCH (10:00)
[2016-10-18] MEDS: glipiZIDE 5 MG Tab.ER PO SCH ×2 (10:01→21:44)
--- NOTE | 2016-10-18 11:55 | PCM.POSTAN ---
POST ANESTHESIA ASSESSMENT - MENTAL STATUS Mental Status: alert - VITAL SIGNS Pulse Rate: 91 SaO2: 92 Blood Pressure: 120/68 Temperature: 37 C - RESPIRATORY Respiratory Status: respiratory rate WNL - CARDIOVASCULAR CV Status: pulse rate WNL - GASTROINTESTINAL GI Status: no symptoms - PAIN Pain Score: 0 (0/10 after morphine given by floor nurse) - POST OP HYDRATION Hydration Status: adequate & stable - OBSERVATIONS Free Text/Narrative:: Pt without c/o. No c/o pain, no c/o ponv, no c/o awareness of procedure. No post anesthesia complications noted
[2016-10-18] MEDS ORDERED: FLUTICASONE INH SCH (12:30)
[2016-10-18] MEDS ORDERED: SALMETEROL INH SCH (12:30)
[2016-10-18] MEDS: SITAGLIPTIN 100 MG PO SCH (12:48)
[2016-10-18] MEDS ORDERED: Famotidine 20 MG/2 ML SDV IV ONE (14:10)
[2016-10-18] MEDS ORDERED: Propofol 200 MG/20 ML SDV IV ONE (14:10)
[2016-10-18] MEDS ORDERED: Ondansetron 4 MG/2 ML SDV IV ONE (14:10)
[2016-10-18] MEDS ORDERED: fentaNYL 100 MCG/2 ML SDV IV ONE (14:10)
[2016-10-18] MEDS ORDERED: Midazolam 1 MG/ML 2 ML SDV IV ONE (14:10)
[2016-10-18] MEDS: Acetaminophen 325 MG Tab PO PRN (14:12)
[2016-10-18] MEDS: Acetaminophen/HYDROcodone 325-10 MG Tab PO PRN (17:52)
[2016-10-18] MEDS: Insulin Detemir 100 Units/ML 3 ML Pen SUBCUT SCH (21:42)
[2016-10-18] MEDS: Simvastatin 10 MG Tab PO SCH (21:46)
[2016-10-18] MEDS: Zolpidem 5 MG Tab PO SCH (22:34)
[2016-10-19] MEDS: Piperacillin/Tazobactam 3.375 GM in Sodium Chloride 0.9% 100 ML IV SCH ×5 (00:23→23:54)
[2016-10-19] MEDS: Albuterol/Ipratropium 3.0-0.5 MG/3 ML Neb Soln NEB SCH ×4 (01:01→17:42)
[2016-10-19] MEDS: Heparin Sodium 5,000 Units/ML Vial SUBCUT SCH ×3 (05:37→21:58)
[2016-10-19 07:23] LABS: CHLORIDE,CL 101 mmol/L (101-111); SODIUM,NA 138 mmol/L (135-145)
[2016-10-19] MEDS: Insulin Aspart 100 Units/ML 3 ML Pen SUBCUT SCH ×4 (07:59→21:58)
--- NOTE | 2016-10-19 08:30 | PCM.PN ---
- General Info Date of Service: 10/19/16 Admission Dx/Problem (Free Text): sepsis with right foot infection Subjective Update: Patient is feeling the same, he had an uneventful night but is complaining of right foot pain and some swelling. Patient denies chest pain, shortness of breath, cough, abdominal pain overnight. He denies fever, chills, nausea or vomiting. - Patient Data Vitals - most recent: Last Vital Signs Temp 36.9 C 10/19/16 07:00 Pulse 93 10/19/16 07:00 Resp 20 10/19/16 07:00 BP 138/77 10/19/16 07:00 Pulse Ox 95 10/19/16 07:00 Weight - most recent: 97.25 kg I&O - last 24 hours: Intake & Output 10/18/16 10/19/16 10/19/16 22:59 06:59 14:59 Intake Total 390 950 Output Total 900 Balance 390 50 Lab Results last 24 hrs: Laboratory Results - last 24 hr 10/18/16 10/18/16 10/18/16 Range/Units 08:41 11:29 17:20 WBC (5.0-10.0) 10^3/uL RBC (4.6-6.2) 10^6/uL Hgb (14.0-18.0) g/dL Hct (40.0-54.0) % MCV (80-100) fL MCH (27.0-34.0) pg MCHC (33.0-35.0) g/dL Plt Count (150-450) 10^3/uL Neut % (Auto) (42.2-75.2) % Lymph % (Auto) (20.5-50.1) % [place] % (Auto) (2-8) % Eos % (Auto) (1.0-3.0) % Baso % (Auto) (0.0-1.0) % Sodium (135-145) mmol/L Potassium (3.6-5.0) mmol/L Chloride (101-111) mmol/L Carbon Dioxide (21.0-31.0) mmol/L Anion Gap BUN (7-18) mg/dL Creatinine (0.6-1.3) mg/dL Est Cr Clr Drug Dosing mL/min Estimated GFR (MDRD) Glucose (74-105) mg/dL POC Glucose 70 138 H 76 (70-105) mg/dl Calcium (8.4-10.2) mg/dl Magnesium (1.8-2.5) mg/dL C-Reactive Protein (0.0-1.3) mg/dL 10/18/16 10/19/16 10/19/16 Range/Units 21:24 06:32 06:32 WBC 8.4 (5.0-10.0) 10^3/uL RBC 5.70 (4.6-6.2) 10^6/uL Hgb 18.1 H (14.0-18.0) g/dL Hct 55.4 H (40.0-54.0) % MCV 97.2 (80-100) fL MCH 31.8 (27.0-34.0) pg MCHC 32.7 L (33.0-35.0) g/dL Plt Count 70 L (150-450) 10^3/uL Neut % (Auto) 74.7 (42.2-75.2) % Lymph % (Auto) 17.3 L (20.5-50.1) % Durham % (Auto) 6.9 (2-8) % Eos % (Auto) 0.9 L (1.0-3.0) % Baso % (Auto) 0.2 (0.0-1.0) % Sodium 138 (135-145) mmol/L Potassium 4.5 (3.6-5.0) mmol/L Chloride 101 (101-111) mmol/L Carbon Dioxide 27.0 (21.0-31.0) mmol/L Anion Gap 14.5 BUN 13 (7-18) mg/dL Creatinine 1.1 (0.6-1.3) mg/dL Est Cr Clr Drug Dosing 74.28 mL/min Estimated GFR (MDRD) > 60 Glucose 63 L (74-105) mg/dL POC Glucose 163 H (70-105) mg/dl Calcium 8.4 (8.4-10.2) mg/dl Magnesium 1.8 (1.8-2.5) mg/dL C-Reactive Protein (0.0-1.3) mg/dL 10/19/16 10/19/16 Range/Units 06:32 07:51 WBC (5.0-10.0) 10^3/uL RBC (4.6-6.2) 10^6/uL Hgb (14.0-18.0) g/dL Hct (40.0-54.0) % MCV (80-100) fL MCH (27.0-34.0) pg MCHC (33.0-35.0) g/dL Plt Count (150-450) 10^3/uL Neut % (Auto) (42.2-75.2) % Lymph % (Auto) (20.5-50.1) % [place] % (Auto) (2-8) % Eos % (Auto) (1.0-3.0) % Baso % (Auto) (0.0-1.0) % Sodium (135-145) mmol/L Potassium (3.6-5.0) mmol/L Chloride (101-111) mmol/L Carbon Dioxide (21.0-31.0) mmol/L Anion Gap BUN (7-18) mg/dL Creatinine (0.6-1.3) mg/dL Est Cr Clr Drug Dosing mL/min Estimated GFR (MDRD) Glucose (74-105) mg/dL POC Glucose 126 H (70-105) mg/dl Calcium (8.4-10.2) mg/dl Magnesium (1.8-2.5) mg/dL C-Reactive Protein > 20.0 H (0.0-1.3) mg/dL Med Orders - Current: Current Medications Acetaminophen (Tylenol) 650 mg PO Q4H PRN PRN Reason: Pain (Mild 1-3)/fever Last Admin: 10/18/16 14:12 Dose: 650 mg Hydrocodone Bitart/Acetaminophen (Manley 325-10 Mg) 0.5 tab PO Q4H PRN PRN Reason: Pain (moderate 4-6) Last Admin: 10/18/16 17:52 Dose: 0.5 tab Albuterol (Proventil Hfa) 0 gm INH Q6HR PRN PRN Reason: Shortness of Breath Last Admin: 10/18/16 12:47 Dose: 1 puff Albuterol/Ipratropium (Duoneb 3.0-0.5 Mg/3 Ml) 3 ml NEB Q6HRRT [facility] Last Admin: 10/19/16 06:19 Dose: 3 ml Aspirin (Halfprin) 81 mg PO DAILY [facility] Last Admin: 10/18/16 10:00 Dose: 81 mg Bupropion HCl (Wellbutrin Xl) 150 mg PO DAILY [facility] Last Admin: 10/18/16 09:53 Dose: 150 mg Docusate Sodium (Colace) 100 mg PO BID PRN PRN Reason: Constipation Furosemide (Lasix) 20 mg PO DAILY [facility] Last Admin: 10/18/16 10:00 Dose: 20 mg Glipizide (Glucotrol Xl) 5 mg PO BID [facility] Last Admin: 10/18/16 21:44 Dose: 5 mg Piperacillin Sod/Tazobactam (Sod 3.375 gm/ Sodium Chloride) 100 mls @ 200 mls/ hr IV Q6H [facility] Last Admin: 10/19/16 05:29 Dose: 200 mls/hr Insulin Aspart (Novolog) 0 unit SUBCUT QIDACANDBED [facility] PRN Reason: Protocol Last Admin: 10/19/16 07:59 Dose: Not Given Insulin Detemir (Levemir) 17 unit SUBCUT BEDTIME [facility] Last Admin: 10/18/16 21:42 Dose: 17 units Isosorbide Mononitrate (Imdur) 30 mg PO DAILY [facility] Last Admin: 10/18/16 08:38 Dose: Not Given Losartan Potassium (Cozaar) 100 mg PO DAILY [facility] Last Admin: 10/18/16 09:55 Dose: 100 mg Metformin HCl (Glucophage) 1,000 mg PO BID [facility] Last Admin: 10/18/16 21:45 Dose: 1,000 mg Metoprolol Succinate (Toprol Xl) 50 mg PO DAILY [facility] Last Admin: 10/18/16 08:38 Dose: Not Given Morphine Sulfate (Morphine) 2 mg IVPUSH Q2H PRN PRN Reason: Pain (severe 7-10) Last Admin: 10/18/16 19:53 Dose: 2 mg Nicotine (Habitrol) 21 mg TRDERM DAILY PRN PRN Reason: Nicotine withdrawal Omeprazole (Omeprazole) 20 mg PO BID [facility] Last Admin: 10/18/16 21:46 Dose: 20 mg Ondansetron HCl (Zofran) 4 mg IVPUSH Q6H PRN PRN Reason: Nausea/Vomiting Sitagliptin [Januvia ] 100mgPt's Own Med 0 each PO DAILY [facility] Last Admin: 10/18/16 12:48 Dose: 1 each Fluticasone/Salmeterol [Advair 250-50] Pt's Own Med 0 each INH DAILY [facility] Polyethylene Glycol (Miralax) 17 gm PO DAILY PRN PRN Reason: Constipation Pregabalin (Lyrica) 200 mg PO TID [facility] Last Admin: 10/18/16 21:46 Dose: 200 mg Sertraline HCl (Zoloft) 100 mg PO BID [facility] Last Admin: 10/18/16 21:45 Dose: 100 mg Simvastatin (Zocor) 10 mg PO BEDTIME [facility] Last Admin: 10/18/16 21:46 Dose: 10 mg Zolpidem Tartrate (Ambien) 10 mg PO BEDTIME [facility] Last Admin: 10/18/16 22:34 Dose: 10 mg Discontinued Medications Bupivacaine HCl (Sensorcaine-Mpf 0.5%) Confirm Administered Dose 20 ml .ROUTE .STK-MED ONE Stop: 10/18/16 05:55 Bupivacaine HCl (Sensorcaine-Mpf 0.5%) 5 ml INJECT .STK-MED ONE Stop: 10/18/16 07:21 Last Admin: 10/18/16 07:20 Dose: 5 ml Bupivacaine HCl (Sensorcaine-Mpf 0.5%) 3 ml INJECT .STK-MED ONE Stop: 10/18/16 07:37 Last Admin: 10/18/16 07:36 Dose: 3 ml Bupivacaine HCl (Sensorcaine-Mpf 0.5%) 2 ml INJECT .STK-MED ONE Stop: 10/18/16 08:03 Last Admin: 10/18/16 08:02 Dose: 2 ml Ephedrine Sulfate (Ephedrine Sulfate) Confirm Administered Dose 50 mg .ROUTE .STK-MED ONE Stop: 10/18/16 06:34 Famotidine (Pepcid) Confirm Administered Dose 20 mg .ROUTE .STK-MED ONE Stop: 10/18/16 06:33 Famotidine (Pepcid) 20 mg IV .STK-MED ONE Stop: 10/18/16 14:11 Fentanyl (Sublimaze) Confirm Administered Dose 100 mcg .ROUTE .STK-MED ONE Stop: 10/18/16 06:32 Fentanyl (Sublimaze) 100 mcg IV .STK-MED ONE Stop: 10/18/16 14:11 Gentamicin Sulfate (Gentamicin) Confirm Administered Dose 80 mg .ROUTE .ST-MED ONE Stop: 10/18/16 06:35 Gentamicin Sulfate (Gentamicin) 80 mg .XX .[facility] ONE Stop: 10/18/16 07:38 Last Admin: 10/18/16 07:37 Dose: 80 mg Gentamicin Sulfate (Gentamicin) Confirm Administered Dose 80 mg .ROUTE .ST-MED ONE Stop: 10/18/16 07:42 Gentamicin Sulfate (Gentamicin) 80 mg .XX .ST-MED ONE Stop: 10/18/16 07:47 Last Admin: 10/18/16 07:46 Dose: 80 mg Heparin Sodium (Porcine) (Heparin Sodium) 5,000 units SUBCUT Q8HR [facility] Last Admin: 10/19/16 05:37 Dose: 5,000 units Piperacillin Sod/Tazobactam (Sod 3.375 gm/ Sodium Chloride) 100 mls @ 200 mls/ hr IV ONETIME ONE Stop: 10/17/16 18:11 Last Admin: 10/17/16 18:02 Dose: 200 mls/hr Sodium Chloride (Normal Saline) 1,000 mls @ 999 mls/hr IV ASDIRECTED [facility] Stop: 10/19/16 21:01 Last Admin: 10/17/16 22:32 Dose: 999 mls/hr Magnesium Sulfate 2 gm/ Premix 50 mls @ 25 mls/hr IV ONETIME ONE Stop: 10/18/16 09:59 Last Admin: 10/18/16 09:25 Dose: 25 mls/hr Isosorbide Mononitrate (Imdur) Confirm Administered Dose 30 mg .ROUTE .[facility] ONE Stop: 10/18/16 06:24 Last Admin: 10/18/16 06:33 Dose: Not Given Lidocaine HCl (Xylocaine-Mpf 1%) Confirm Administered Dose 30 ml .ROUTE .ST- MED ONE Stop: 10/18/16 05:55 Lidocaine HCl (Xylocaine 2%) Confirm Administered Dose 20 ml .ROUTE .STK-MED ONE Stop: 10/18/16 06:34 Lidocaine HCl (Xylocaine-Mpf 1%) 5 ml INJECT .STK-MED ONE Stop: 10/18/16 07:21 Last Admin: 10/18/16 07:20 Dose: 5 ml Lidocaine HCl (Xylocaine-Mpf 1%) 3 ml INJECT .STK-MED ONE Stop: 10/18/16 07:37 Last Admin: 10/18/16 07:36 Dose: 3 ml Lidocaine HCl (Xylocaine-Mpf 1%) 2 ml INJECT .STK-MED ONE Stop: 10/18/16 08:03 Last Admin: 10/18/16 08:02 Dose: 2 ml Metoprolol Succinate (Toprol Xl) Confirm Administered Dose 50 mg .ROUTE .STK- MED ONE Stop: 10/18/16 06:17 Last Admin: 10/18/16 06:27 Dose: 50 mg Midazolam HCl (Versed 1 Mg/Ml) Confirm Administered Dose 4 mg .ROUTE .STK-MED ONE Stop: 10/18/16 06:32 Midazolam HCl (Versed 1 Mg/Ml) 4 mg IV .STK-MED ONE Stop: 10/18/16 14:11 Mometasone Furoate/Formoterol Fumar (Dulera 200-5 Mcg) 0 puff IH DAILY [facility] Last Admin: 10/18/16 12:52 Dose: Not Given Docusate Sodium [ (Colace] 50mg) 50 mg PO BID PRN PRN Reason: Constipation Ondansetron HCl (Zofran) Confirm Administered Dose 4 mg .ROUTE .STK-MED ONE Stop: 10/18/16 06:32 Ondansetron HCl (Zofran) 4 mg IV .STK-MED ONE Stop: 10/18/16 14:11 Fluticasone/Salmeterol [Advair 250-50] Pt's Own Med 0 each INH BID [facility] Phenylephrine HCl (Agustin-Synephrine) Confirm Administered Dose 10 mg .ROUTE .STK- MED ONE Stop: 10/18/16 06:34 Propofol (Diprivan 20 Ml) Confirm Administered Dose 600 mg .ROUTE .STK-MED ONE Stop: 10/18/16 06:32 Propofol (Diprivan 20 Ml) 80 mg IV .STK-MED ONE Stop: 10/18/16 14:11 Succinylcholine Chloride (Quelicin) Confirm Administered Dose 200 mg .ROUTE .STK -MED ONE Stop: 10/18/16 06:34 Zolpidem Tartrate (Ambien) 5 mg PO BEDTIME PRN PRN Reason: Sleep - Exam General: alert, oriented, cooperative, no acute distress HEENT: Pupils equal, Pupils reactive, EOMI, Mucous membr. moist/pink Neck: supple, trachea midline, no JVD Lungs: Clear to auscultation, Normal respiratory effort Cardiovascular: Regular Rate, Regular Rhythm Abdomen: bowel sounds present, soft, no tenderness, no distension Extremities: no clubbing, no cyanosis, no calf tenderness, other (Right foot is wrapped with dressing. Dressing is having some blood above the surgical wound otherwise the rest of the right lower extremity looks normal) Neurological: no new focal deficit Psy/Mental Status: alert, normal affect, normal mood - Problem List & Annotations (1) Sepsis SNOMED Code(s): 11515531 Code(s): A41.9 - SEPSIS, UNSPECIFIED ORGANISM Status: Acute Priority: High Current Visit: Yes (2) Substance abuse SNOMED Code(s): 48713856 Code(s): F19.10 - OTHER PSYCHOACTIVE SUBSTANCE ABUSE, UNCOMPLICATED Status : Acute Current Visit: Yes (3) Osteomyelitis SNOMED Code(s): 34292287 Code(s): M86.9 - OSTEOMYELITIS, UNSPECIFIED Status: Acute Priority: High Current Visit: Yes Qualifiers: Osteomyelitis type: unspecified type Osteomyelitis location: foot Laterality: right Qualified Code(s): M86.9 - Osteomyelitis, unspecified (4) Type 2 diabetes mellitus with right diabetic foot infection SNOMED Code(s): 22196243 Code(s): E11.69 - TYPE 2 DIABETES MELLITUS WITH OTHER SPECIFIED COMPLICATION ; L08.9 - LOCAL INFECTION OF THE SKIN AND SUBCUTANEOUS TISSUE, UNSP Status: Acute Priority: Medium Current Visit: No Onset Date: 01/29/15 (5) Diabetic peripheral neuropathy associated with type 2 diabetes mellitus SNOMED Code(s): 5374270583017, 7599467540773 Code(s): E11.42 - TYPE 2 DIABETES MELLITUS WITH DIABETIC POLYNEUROPATHY Status: Chronic Current Visit: No (6) Thrombocytopenia SNOMED Code(s): 516180942 Code(s): D69.6 - THROMBOCYTOPENIA, UNSPECIFIED Status: Acute Current Visit: Yes - Problem List Review Problem List Initiated/Reviewed/Updated: Yes - My Orders Last 24 Hours: My Active Orders 10/18/16 09:00 Aspirin [Halfprin] 81 mg PO DAILY Furosemide [Lasix] 20 mg PO DAILY Isosorbide Mononitrate [Imdur] 30 mg PO DAILY Losartan [Cozaar] 100 mg PO DAILY Metoprolol Succinate [Toprol XL] 50 mg PO DAILY buPROPion [Wellbutrin XL] 150 mg PO DAILY 10/18/16 09:24 Docusate Sodium [Colace] 100 mg PO BID PRN 10/18/16 12:15 Patient's Own Medication [Ptom] 0 each PO DAILY 10/19/16 08:22 Antiembolic Devices [RC] PER UNIT ROUTINE SCD [Sequential Compression Device] [OM.PC] Routine 10/19/16 09:00 Patient's Own Medication [Ptom] 0 each INH DAILY 10/20/16 05:11 BASIC METABOLIC PANEL,BMP [CHEM] AM CBC WITH AUTO DIFF [HEME] AM CRP [C-REACTIVE PROTEIN] [CHEM] AM - Plan Plan:: Sepsis On admission: Elevated WBC, rapid heart rate, elevated lactic acid was source of infection in the right foot He received 30/ml per kilogram as a bolus on admission. -white cells are back to normal Continue Zosyn -Awaiting blood and wound cultures I/Os Daily weight Osteo-myelitis of right foot/toes Status post right foot 3rd digit amputation with debridement and wash out on -Zosyn -Awaiting blood and wound cultures post surgical wound care by Dr. Holland physical and occupational therapy to evaluate and treat COPD, chronic with wheezing chest x-ray on admission showed no acute findings Continue respiratory medications that he takes at home -DuoNeb every 6 hours scheduled Avoid oral steroids since his symptoms are not severe and has sepsis Thrombocytopenia Platelets are trending down today, could be from infection, postsurgical, or from heparin -I will stop heparin Hypomagnesemia, resolved -replaceed by magnesium today by IV Diabetes mellitus type 2 in obese patient Resume home antihyperglycemic medications Sliding scale insulin Diabetic diet Essential hypertension Resume blood pressure medications that he takes at home Depression, stable Assume home medications Neuropathy Resume home medications Alcohol abuse Watch for withdrawal symptoms Substance abuse He admits using marijuana He needs to seek outpatient counseling He was initially on heparin for DVT prophylaxis but that was stopped due to thrombocytopenia now on SCDs for DVT prophylaxis He wants to be full code
[2016-10-19] MEDS: FLUTICASONE INH SCH (08:50)
[2016-10-19] MEDS: SITAGLIPTIN 100 MG PO SCH (08:50)
[2016-10-19] MEDS: SALMETEROL INH SCH (08:50)
[2016-10-19] MEDS: Omeprazole 20 MG Cap.CR PO SCH ×2 (08:51→21:59)
[2016-10-19] MEDS: Losartan 50 MG Tab PO SCH (08:51)
[2016-10-19] MEDS: Aspirin 81 MG Tab.EC PO SCH (08:51)
[2016-10-19] MEDS: Pregabalin 50 MG Cap PO SCH ×3 (08:51→21:59)
[2016-10-19] MEDS: Isosorbide Mononitrate 30 MG Tab.ER PO SCH (08:52)
[2016-10-19] MEDS: buPROPion 150 MG Tab.ER PO SCH (08:52)
[2016-10-19] MEDS: metFORMIN 500 MG Tab PO SCH ×2 (08:52→21:59)
[2016-10-19] MEDS: glipiZIDE 5 MG Tab.ER PO SCH ×2 (08:52→21:59)
[2016-10-19] MEDS: Metoprolol Succinate 50 MG Tab.ER PO SCH (08:52)
[2016-10-19] MEDS: Furosemide 20 MG Tab PO SCH (08:52)
[2016-10-19] MEDS: Sertraline 50 MG Tab PO SCH ×2 (08:53→21:59)
[2016-10-19] MEDS: Morphine 2 MG/ML Syringe IVPUSH PRN ×3 (09:02→20:20)
--- NOTE | 2016-10-19 10:37 | PCM.CONS ---
H&P History of Present Illness - General Date of Service: 10/19/16 Admit Problem/Dx: sepsis with right foot infection Source of Information: Patient History Limitations: Reports: No Limitations - History of Present Illness Initial Comments - Free Text/Narative: Pt is POD1 s/p right foot 3rd digit amputation with debridement and washout. He reports today that he is having some increased nerve pain to that foot, otherwise doing well. He has been keeping the foot elevated, has gotten up to the bathroom with the post op shoe. Denies N/V/F/C/calf pain. Right Feet Pain Score (Numeric/FACES): 7 - Related Data Allergies/Adverse Reactions: Allergies Allergy/AdvReac Type Severity Reaction Status Date / Time vancomycin Allergy Hives Verified 10/17/16 18:28 Home Medications: Home Meds Albuterol [Proair HFA] 1 puff INH Q6HR PRN 01/29/15 [History] Aspirin [Halfprin] 81 mg PO DAILY 01/29/15 [History] Docusate Sodium [Colace] 50 mg PO BID PRN 01/29/15 [History] Fluticasone/Salmeterol [Advair 250-50] 1 puff INH DAILY 01/29/15 [History] Furosemide [Lasix] 20 mg PO DAILY 01/29/15 [History] Insulin Glarg,Human.Rec.Analog [LantUS Solostar] 17 units SQ BEDTIME 01/29/15 [ History] Isosorbide Mononitrate [Isosorbide Mononitrate ER] 30 mg PO DAILY 01/29/15 [ History] Losartan [Cozaar] 100 mg PO DAILY 01/29/15 [History] Metoprolol Succinate [Toprol XL] 50 mg PO DAILY 01/29/15 [History] Omeprazole 20 mg PO BID 01/29/15 [History] Pregabalin [Lyrica] 200 mg PO TID 01/29/15 [History] Sertraline HCl 100 mg PO BID 01/29/15 [History] Simvastatin 10 mg PO BEDTIME 01/29/15 [History] SitaGLIPtin [Januvia] 100 mg PO DAILY 01/29/15 [History] buPROPion [Wellbutrin XL] 150 mg PO DAILY 01/29/15 [History] glipiZIDE [Glucotrol XL] 5 mg PO BID 01/29/15 [History] metFORMIN [Glucophage] 1,000 mg PO BID 01/29/15 [History] Acetaminophen [Tylenol] 650 mg PO Q4H PRN #0 tablet 02/08/15 [Rx] Hydrocodone/Acetaminophen [Hydrocodon-Acetaminophen 5-325] 1 each PO Q6H PRN # 30 tablet 02/08/15 [Rx] Zolpidem [Ambien] 10 mg PO BEDTIME 04/04/15 [History] Naproxen [Naprosyn] 500 mg PO BID 05/30/16 [History] Past Medical History HEENT History: Reports: Impaired Vision, Other (See Below) Other HEENT History: WEARS CORRECTIVE LENS Cardiovascular History: Reports: High Cholesterol, Hypertension Respiratory History: Reports: Asthma, COPD, Other (See Below) Other Respiratory History: HX OF TOBACCO ABUSE Gastrointestinal History: Reports: Chronic Constipation, GERD Other Gastrointestinal History: esophageal varices Genitourinary History: Reports: None Musculoskeletal History: Reports: Arthritis, Back Pain, Chronic, Fracture Other Musculoskeletal History: osteomyletis Neurological History: Reports: Neuropathy, Diabetic Psychiatric History: Reports: Depression, Other (See Below) Other Psychiatric History: TOBACCO ABUSE Endocrine/Metabolic History: Reports: Diabetes, Type II Other Endocrine/Metabolic History: diabetic nephropathy Hematologic History: Reports: None Immunologic History: Reports: None Oncologic (Cancer) History: Reports: None Dermatologic History: Reports: Cellulitis Other Dermatologic History: open areas to R) ft - Infectious Disease History Infectious Disease History: Reports: Chicken Pox - Past Surgical History GI Surgical History: Reports: Colonoscopy, Hernia Repair/Other Musculoskeletal Surgical History: Reports: Amputation, Other (See Below) Social & Family History - Family History Family Medical History: Noncontributory - Tobacco Use Smoking Status *Q: Current Every Day Smoker Years of Tobacco use: 40 Packs/Tins Daily: 0.3 Second Hand Smoke Exposure: Yes - Caffeine Use Caffeine Use: Reports: None - Alcohol Use Days Per Week of Alcohol Use: 7 Number of Drinks Per Day: 12 Total Drinks Per Week: 84 Date of Last Drink: 10/16/16 Time of Last Drink: 21:00 - Recreational Drug Use Recreational Drug Use: Yes Drug Use in Last 12 Months: Yes Recreational Drug Type: Reports: Marijuana/Hashish Recreational Drug Use Frequency: Socially Recreational Drug Last Use: 05/30/16 H&P Review of Systems - Review of Systems: Review Of Systems: See Below General: Reports: No Symptoms Exam - Exam Exam: See Below - Vital Signs Vital Signs: Last Vital Signs Temp 36.9 C 10/19/16 07:00 Pulse 92 10/19/16 08:52 Resp 20 10/19/16 07:00 BP 138/77 10/19/16 08:52 Pulse Ox 95 10/19/16 07:00 Weight: 97.25 kg - Exam General: Alert, Oriented Physical Exam Comments:: Dressing removed today, incision site appears well coapted with sutures intact, reduction of erythema when compared to pre-operative exam, really only just some minimal erythema at incision site today, none extending proximally up the foot/ankle. There is no drainage able to be expressed from the incision today. Some macerated tissue around the incision. Some edema still present to the right foot. Pulses palpable. No pain with palpation to amputation site today. - Patient Data Lab Results Last 24 hrs: Laboratory Results - last 24 hr 10/18/16 10/18/16 10/18/16 Range/Units 11:29 17:20 21:24 WBC (5.0-10.0) 10^3/uL RBC (4.6-6.2) 10^6/uL Hgb (14.0-18.0) g/dL Hct (40.0-54.0) % MCV (80-100) fL MCH (27.0-34.0) pg MCHC (33.0-35.0) g/dL Plt Count (150-450) 10^3/uL Neut % (Auto) (42.2-75.2) % Lymph % (Auto) (20.5-50.1) % Desha % (Auto) (2-8) % Eos % (Auto) (1.0-3.0) % Baso % (Auto) (0.0-1.0) % Sodium (135-145) mmol/L Potassium (3.6-5.0) mmol/L Chloride (101-111) mmol/L Carbon Dioxide (21.0-31.0) mmol/L Anion Gap BUN (7-18) mg/dL Creatinine (0.6-1.3) mg/dL Est Cr Clr Drug Dosing mL/min Estimated GFR (MDRD) Glucose (74-105) mg/dL POC Glucose 138 H 76 163 H (70-105) mg/dl Calcium (8.4-10.2) mg/dl Magnesium (1.8-2.5) mg/dL C-Reactive Protein (0.0-1.3) mg/dL 10/19/16 10/19/16 10/19/16 Range/Units 06:32 06:32 06:32 WBC 12.3 H (5.0-10.0) 10^3/uL RBC 3.31 L (4.6-6.2) 10^6/uL Hgb 10.5 L (14.0-18.0) g/dL Hct 32.8 L (40.0-54.0) % MCV 99.1 (80-100) fL MCH 31.7 (27.0-34.0) pg MCHC 32.0 L (33.0-35.0) g/dL Plt Count 135 L (150-450) 10^3/uL Neut % (Auto) 80.7 H (42.2-75.2) % Lymph % (Auto) 11.5 L (20.5-50.1) % Desha % (Auto) 7.1 (2-8) % Eos % (Auto) 0.5 L (1.0-3.0) % Baso % (Auto) 0.2 (0.0-1.0) % Sodium 138 (135-145) mmol/L Potassium 4.5 (3.6-5.0) mmol/L Chloride 101 (101-111) mmol/L Carbon Dioxide 27.0 (21.0-31.0) mmol/L Anion Gap 14.5 BUN 13 (7-18) mg/dL Creatinine 1.1 (0.6-1.3) mg/dL Est Cr Clr Drug Dosing 74.28 mL/min Estimated GFR (MDRD) > 60 Glucose 63 L (74-105) mg/dL POC Glucose (70-105) mg/dl Calcium 8.4 (8.4-10.2) mg/dl Magnesium 1.8 (1.8-2.5) mg/dL C-Reactive Protein > 20.0 H (0.0-1.3) mg/dL 10/19/16 Range/Units 07:51 WBC (5.0-10.0) 10^3/uL RBC (4.6-6.2) 10^6/uL Hgb (14.0-18.0) g/dL Hct (40.0-54.0) % MCV (80-100) fL MCH (27.0-34.0) pg MCHC (33.0-35.0) g/dL Plt Count (150-450) 10^3/uL Neut % (Auto) (42.2-75.2) % Lymph % (Auto) (20.5-50.1) % Desha % (Auto) (2-8) % Eos % (Auto) (1.0-3.0) % Baso % (Auto) (0.0-1.0) % Sodium (135-145) mmol/L Potassium (3.6-5.0) mmol/L Chloride (101-111) mmol/L Carbon Dioxide (21.0-31.0) mmol/L Anion Gap BUN (7-18) mg/dL Creatinine (0.6-1.3) mg/dL Est Cr Clr Drug Dosing mL/min Estimated GFR (MDRD) Glucose (74-105) mg/dL POC Glucose 126 H (70-105) mg/dl Calcium (8.4-10.2) mg/dl Magnesium (1.8-2.5) mg/dL C-Reactive Protein (0.0-1.3) mg/dL Result Diagrams: 10/19/16 06:32 10/19/16 06:32 Ganesh Results Last 24 hrs: Microbiology 10/18/16 07:55 Wound Culture - Preliminary Toe, Right - Right Third 10/18/16 07:50 Wound Culture - Preliminary Toe, Right - Right Third Consult PN Assessment/Plan POD#: 1 Procedures: Procedures ANESTH LOWER LEG BONE SURG (05/31/16) ASSAY OF CK (CPK) (05/03/16) COMPLETE CBC W/AUTO DIFF WBC (06/11/16) COMPREHEN METABOLIC PANEL (06/11/16) CT HEAD/BRAIN W/O DYE (05/03/16) CT NECK SPINE W/O DYE (05/03/16) CULTR BACTERIA EXCEPT BLOOD (05/31/16) CULTURE AEROBIC IDENTIFY (05/31/16) CULTURE OTHR SPECIMN AEROBIC (05/31/16) EMERGENCY DEPT VISIT (06/11/16) EMERGENCY DEPT VISIT (05/03/16) EMERGENCY DEPT VISIT (05/03/16) EMERGENCY DEPT VISIT (04/04/15) GLUCOSE BLOOD TEST (06/11/16) HYDRATE IV INFUSION ADD-ON (06/11/16) HYDRATION IV INFUSION INIT (06/11/16) MICROBE SUSCEPTIBLE GANESH (05/31/16) MRI JNT OF LWR EXTRE W/O DYE (05/21/14) PARTIAL AMPUTATION OF TOE (05/31/16) PROTHROMBIN TIME (05/03/16) ROUTINE VENIPUNCTURE (06/11/16) TDAP VACCINE 7 YRS/> IM (05/03/16) THER/PROPH/DIAG INJ SC/IM (05/03/16) X-RAY EXAM OF HAND (05/03/16) Problem List Initiated/Reviewed/Updated: Yes Plan: Dressing changed today, amputation site looks good with less erythema and no expressible drainage. White count is up slightly today and we are still awaiting cultures & sens. If WBC increases again tomorrow then we could think about doing another wash-out if needed. I will reevalaute him again tomorrow and change the dressing at that time. Keep dressing intact. Post op shoe when up to the bathroom. Elevate right LE at all times to heart level.
--- NOTE | 2016-10-19 11:29 | OR ---
DATE: 10/18/2016 PREOPERATIVE DIAGNOSIS: Right foot 3rd digit diabetic infection with ulceration and osteomyelitis. POSTOPERATIVE DIAGNOSIS: Right foot 3rd digit diabetic infection with ulceration and osteomyelitis. PROCEDURE PERFORMED: Right foot 3rd digit amputation with debridement and washout. ANESTHESIA: Local MAC with preoperative local block of 10 mL 1:1 mixture of 1% lidocaine plain and 0.5% Marcaine plain. TOURNIQUET TIME: 7 minutes, pneumatic ankle tourniquet. ESTIMATED BLOOD LOSS: Minimal. SPECIMEN REMOVED: Right 3rd digit. INDICATIONS: Edenilson is a 50-year-old diabetic male, who presented to the emergency room on SundayOctober 17 for redness and swelling to his right 3rd toe. He states he noticed that starting approximately 3-4 days ago and has progressively worsened since that time. Now the skin is turning black around the toe and there is purulent drainage coming from the toe. He has been keeping a dry dressing on this toe. 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 He denies any nausea, vomiting, fever, or chills. X-rays of the right foot reveal cortical erosion and osteolysis of the 3rd digit indicative of osteomyelitis, no signs of gas in the soft tissue. The patient voiced good understanding of proposed procedure and possible complications and elects to have surgery at this time. He was admitted to the hospital for IV antibiotics. He had just eaten a large bowl of oatmeal before he got to the emergency room. So, we did plan on the surgery in the optical effects layout person of October 19. DESCRIPTION OF THE PROCEDURE: The patient was taken the operating room, lying in supine position. After adequate anesthesia induction as described above, the right foot was prepped and draped in the usual sterile fashion. The tourniquet was not used in the 1st part of the surgery. Attention was then directed to the right foot 3rd digit where there was an incision made at the 3rd digit, there was a significant amount of devitalized tissue down the dorsal lateral aspect of that 3rd digit, so I was not able to make the usual fishmouth incision, but instead tried to leave enough that I was able to close the wound. I amputated the 3rd digit at the level of the metatarsophalangeal joint, this joint looked healthy in appearance without any purulent drainage or cortical changes noted. It was noted that there was an abscess located at the plantar aspect of the 3rd digit in the fat pad and this is all irrigated and clean, I also did check dorsally a small amount and that was also irrigated and clean, the tendons were retracted and cut as proximally as possible, at the cut end, they did appear healthy in appearance without signs of infection. All devitalized necrotic tissue was debrided. The tourniquet was let at for only 7 minutes and the rest of the area was inspected and all infected tissue was removed. The area was then irrigated with copious amounts of sterile saline mixed with gentamicin solution. We used 2 L of this for irrigation until it was clean. Pre- irrigation and post-irrigation, aerobic and anaerobic cultures were taken and sent to the lab. The skin was then closed with 4-0 nylon. The edges of the incision site were nice healthy bleeding tissue. He was sent back to the floor for continued IV antibiotics. I dressed his foot with Xeroform to the incision site, gauze, Webril and an Doroteo wrap. I will check this again tomorrow. He tolerated the anesthesia well and had immediate hyperemia to the foot upon deflation of the tourniquet. We will plan on keeping him in house until we get the culture results back. I will have to watch him closely. If his lab numbers do not start to down trend, then we may have to wash him out 2nd time. We will see how he does tomorrow. [facility] /[id number]
[2016-10-19] MEDS: Acetaminophen/HYDROcodone 325-10 MG Tab PO PRN (13:01)
[2016-10-19] MEDS: Sodium Chloride 0.9% 10 ML Syringe FLUSH PRN ×2 (20:21→23:54)
[2016-10-19] MEDS: Insulin Detemir 100 Units/ML 3 ML Pen SUBCUT SCH (21:57)
[2016-10-19] MEDS: Simvastatin 10 MG Tab PO SCH (21:59)
[2016-10-19] MEDS: Zolpidem 5 MG Tab PO SCH (21:59)
[2016-10-20] MEDS: Albuterol/Ipratropium 3.0-0.5 MG/3 ML Neb Soln NEB SCH ×4 (00:23→21:26)
[2016-10-20] MEDS: Acetaminophen/HYDROcodone 325-10 MG Tab PO PRN (04:42)
[2016-10-20] MEDS: Piperacillin/Tazobactam 3.375 GM in Sodium Chloride 0.9% 100 ML IV SCH ×3 (06:17→18:05)
[2016-10-20] MEDS: Heparin Sodium 5,000 Units/ML Vial SUBCUT SCH ×3 (06:17→21:42)
[2016-10-20] MEDS: Sodium Chloride 0.9% 10 ML Syringe FLUSH PRN ×4 (07:06→18:07)
[2016-10-20 07:07] LABS: CHLORIDE,CL 97 mmol/L (101-111); SODIUM,NA 137 mmol/L (135-145)
[2016-10-20] MEDS: metFORMIN 500 MG Tab PO SCH ×2 (10:04→21:41)
[2016-10-20] MEDS: glipiZIDE 5 MG Tab.ER PO SCH ×2 (10:04→21:40)
[2016-10-20] MEDS: buPROPion 150 MG Tab.ER PO SCH (10:04)
[2016-10-20] MEDS: Isosorbide Mononitrate 30 MG Tab.ER PO SCH (10:05)
[2016-10-20] MEDS: Aspirin 81 MG Tab.EC PO SCH (10:05)
[2016-10-20] MEDS: Pregabalin 50 MG Cap PO SCH ×3 (10:06→21:40)
[2016-10-20] MEDS: Sertraline 50 MG Tab PO SCH ×2 (10:07→21:39)
[2016-10-20] MEDS: Losartan 50 MG Tab PO SCH (10:08)
[2016-10-20] MEDS: Metoprolol Succinate 50 MG Tab.ER PO SCH (10:08)
[2016-10-20] MEDS: Furosemide 20 MG Tab PO SCH (10:10)
[2016-10-20] MEDS: Omeprazole 20 MG Cap.CR PO SCH ×2 (10:10→21:40)
[2016-10-20] MEDS: SITAGLIPTIN 100 MG PO SCH (10:11)
[2016-10-20] MEDS: SALMETEROL INH SCH (10:12)
[2016-10-20] MEDS: FLUTICASONE INH SCH (10:12)
[2016-10-20] MEDS: Insulin Aspart 100 Units/ML 3 ML Pen SUBCUT SCH ×4 (10:13→21:32)
[2016-10-20] MEDS: Morphine 2 MG/ML Syringe IVPUSH PRN (10:18)
--- NOTE | 2016-10-20 11:27 | PN ---
DATE: 10/20/2016 SUBJECTIVE: A 50-year-old male with type 2 diabetes mellitus, tobacco habituation, polyneuropathy, admitted with osteomyelitis of the 3rd right toe. The patient is still on IV Zosyn and also is being followed by Dr. Holland, and the patient is status post 3rd digit on the right foot. The patient this morning is still complaining of some foot pain, but he denies any chest pain, shortness of breath, fever, chills, abdominal pain, or any other complaints. LABORATORY DATA: Lab workup this morning, CBC; WBC 13.1, hemoglobin is 11.5, hematocrit is 35.8, platelet is 153. Chem-6; chloride of 97, glucose is 72. The rest of the panel is unremarkable. OBJECTIVE: Vital Signs: Blood pressure is 153/86, pulse 77, respirations 20, temperature of 97.3. Heart: Regular rate and rhythm. Normal S1 and S2. No gallops. No rubs. Lungs: Equal bilaterally. No crackles. No wheezing. Abdomen: Moderately obese, soft, nontender. Bowel sounds positive. Extremities: Remarkable for the dressing on the right foot. MEDICATIONS: Reviewed. PLAN: We will continue with his present management and continue with Zosyn. Discharge plan, as per Dr. Holland, if the patient is ready. [facility] /[id number]
[2016-10-20] MEDS: Acetaminophen/HYDROcodone 325-5 MG Tab PO PRN ×2 (15:41→21:41)
--- NOTE | 2016-10-20 16:56 | PCM.CONSN ---
- General Info Date of Service: 10/20/16 Subjective Update: Pt is POD2 s/p right foot 3rd digit amputation with debridement and wash out. Doing well today. States pain is controlled, is having pain to the right foot. Has been able to ambulate to the bathroom without any issues. Denies n/v/f/c/ calf pain. - Review of Systems General: Reports: No Symptoms - Patient Data Vitals - most recent: Last Vital Signs Temp 36.6 C 10/20/16 15:00 Pulse 90 10/20/16 15:00 Resp 18 10/20/16 15:00 BP 130/77 10/20/16 15:00 Pulse Ox 96 10/20/16 15:00 Weight - most recent: 95.708 kg I&O - last 24 hours: Intake & Output 10/20/16 10/20/16 10/20/16 06:59 14:59 22:59 Intake Total 102 753 Output Total 2400 1500 Balance -1729 -688 Lab Results last 24 hrs: Laboratory Results - last 24 hr 10/19/16 10/19/16 10/20/16 Range/Units 17:07 21:07 06:26 WBC 13.1 H (5.0-10.0) 10^3/uL RBC 3.59 L (4.6-6.2) 10^6/uL Hgb 11.5 L (14.0-18.0) g/dL Hct 35.8 L (40.0-54.0) % MCV 99.7 (80-100) fL MCH 32.0 (27.0-34.0) pg MCHC 32.1 L (33.0-35.0) g/dL Plt Count 153 (150-450) 10^3/uL Neut % (Auto) 76.9 H (42.2-75.2) % Lymph % (Auto) 14.6 L (20.5-50.1) % Woodward % (Auto) 7.7 (2-8) % Eos % (Auto) 0.6 L (1.0-3.0) % Baso % (Auto) 0.2 (0.0-1.0) % Add Manual Diff Sodium (135-145) mmol/L Potassium (3.6-5.0) mmol/L Chloride (101-111) mmol/L Carbon Dioxide (21.0-31.0) mmol/L Anion Gap BUN (7-18) mg/dL Creatinine (0.6-1.3) mg/dL Est Cr Clr Drug Dosing mL/min Estimated GFR (MDRD) Glucose (74-105) mg/dL POC Glucose 79 177 H (70-105) mg/dl Calcium (8.4-10.2) mg/dl C-Reactive Protein (0.0-1.3) mg/dL 10/20/16 10/20/16 10/20/16 Range/Units 06:26 06:26 08:01 WBC (5.0-10.0) 10^3/uL RBC (4.6-6.2) 10^6/uL Hgb (14.0-18.0) g/dL Hct (40.0-54.0) % MCV (80-100) fL MCH (27.0-34.0) pg MCHC (33.0-35.0) g/dL Plt Count (150-450) 10^3/uL Neut % (Auto) (42.2-75.2) % Lymph % (Auto) (20.5-50.1) % Woodward % (Auto) (2-8) % Eos % (Auto) (1.0-3.0) % Baso % (Auto) (0.0-1.0) % Add Manual Diff Sodium 137 (135-145) mmol/L Potassium 4.9 (3.6-5.0) mmol/L Chloride 97 L (101-111) mmol/L Carbon Dioxide 28.0 (21.0-31.0) mmol/L Anion Gap 16.9 BUN 14 (7-18) mg/dL Creatinine 1.1 (0.6-1.3) mg/dL Est Cr Clr Drug Dosing 74.28 mL/min Estimated GFR (MDRD) > 60 Glucose 72 L (74-105) mg/dL POC Glucose 54 L (70-105) mg/dl Calcium 9.1 (8.4-10.2) mg/dl C-Reactive Protein 17.5 H (0.0-1.3) mg/dL 10/20/16 Range/Units 11:03 WBC (5.0-10.0) 10^3/uL RBC (4.6-6.2) 10^6/uL Hgb (14.0-18.0) g/dL Hct (40.0-54.0) % MCV (80-100) fL MCH (27.0-34.0) pg MCHC (33.0-35.0) g/dL Plt Count (150-450) 10^3/uL Neut % (Auto) (42.2-75.2) % Lymph % (Auto) (20.5-50.1) % Woodward % (Auto) (2-8) % Eos % (Auto) (1.0-3.0) % Baso % (Auto) (0.0-1.0) % Add Manual Diff Sodium (135-145) mmol/L Potassium (3.6-5.0) mmol/L Chloride (101-111) mmol/L Carbon Dioxide (21.0-31.0) mmol/L Anion Gap BUN (7-18) mg/dL Creatinine (0.6-1.3) mg/dL Est Cr Clr Drug Dosing mL/min Estimated GFR (MDRD) Glucose (74-105) mg/dL POC Glucose 174 H (70-105) mg/dl Calcium (8.4-10.2) mg/dl C-Reactive Protein (0.0-1.3) mg/dL Ganesh Results last 24 hrs: Microbiology 10/18/16 07:55 Wound Culture - Preliminary Toe, Right - Right Third Streptococcus Agalactiae Grp B Anaerobic Culture - Final 10/18/16 07:50 Wound Culture - Preliminary Toe, Right - Right Third Staphylococcus Aureus Anaerobic Culture - Final No Growth Med Orders - Current: Current Medications Acetaminophen (Tylenol) 650 mg PO Q4H PRN PRN Reason: Pain (Mild 1-3)/fever Last Admin: 10/18/16 14:12 Dose: 650 mg Hydrocodone Bitart/Acetaminophen ([place] 325-5 Mg) 1 tab PO Q4H PRN PRN Reason: Pain (moderate 4-6) Last Admin: 10/20/16 15:41 Dose: 1 tab Albuterol (Proventil Hfa) 0 gm INH Q6HR PRN PRN Reason: Shortness of Breath Last Admin: 10/18/16 12:47 Dose: 1 puff Albuterol/Ipratropium (Duoneb 3.0-0.5 Mg/3 Ml) 3 ml NEB Q6HRRT [facility] Last Admin: 10/20/16 14:41 Dose: 3 ml Aspirin (Halfprin) 81 mg PO DAILY [facility] Last Admin: 10/20/16 10:05 Dose: 81 mg Bupropion HCl (Wellbutrin Xl) 150 mg PO DAILY [facility] Last Admin: 10/20/16 10:04 Dose: 150 mg Docusate Sodium (Colace) 100 mg PO BID PRN PRN Reason: Constipation Furosemide (Lasix) 20 mg PO DAILY [facility] Last Admin: 10/20/16 10:10 Dose: 20 mg Glipizide (Glucotrol Xl) 5 mg PO BID [facility] Last Admin: 10/20/16 10:04 Dose: 5 mg Heparin Sodium (Porcine) (Heparin Sodium) 5,000 units SUBCUT Q8HR [facility] Last Admin: 10/20/16 14:40 Dose: 5,000 units Piperacillin Sod/Tazobactam (Sod 3.375 gm/ Sodium Chloride) 100 mls @ 200 mls/ hr IV Q6H [facility] Last Admin: 10/20/16 12:47 Dose: 200 mls/hr Insulin Aspart (Novolog) 0 unit SUBCUT QIDACANDBED [facility] PRN Reason: Protocol Last Admin: 10/20/16 12:43 Dose: 2 units Insulin Detemir (Levemir) 17 unit SUBCUT BEDTIME [facility] Last Admin: 10/19/16 21:57 Dose: 17 units Isosorbide Mononitrate (Imdur) 30 mg PO DAILY [facility] Last Admin: 10/20/16 10:05 Dose: 30 mg Losartan Potassium (Cozaar) 100 mg PO DAILY [facility] Last Admin: 10/20/16 10:08 Dose: 100 mg Metformin HCl (Glucophage) 1,000 mg PO BID [facility] Last Admin: 10/20/16 10:04 Dose: 1,000 mg Metoprolol Succinate (Toprol Xl) 50 mg PO DAILY [facility] Last Admin: 10/20/16 10:08 Dose: 50 mg Nicotine (Habitrol) 21 mg TRDERM DAILY PRN PRN Reason: Nicotine withdrawal Omeprazole (Omeprazole) 20 mg PO BID [facility] Last Admin: 10/20/16 10:10 Dose: 20 mg Ondansetron HCl (Zofran) 4 mg IVPUSH Q6H PRN PRN Reason: Nausea/Vomiting Sitagliptin [Januvia ] 100mgPt's Own Med 0 each PO DAILY [facility] Last Admin: 10/20/16 10:11 Dose: 1 each Fluticasone/Salmeterol [Advair 250-50] Pt's Own Med 0 each INH DAILY [facility] Last Admin: 10/20/16 10:12 Dose: 1 each Polyethylene Glycol (Miralax) 17 gm PO DAILY PRN PRN Reason: Constipation Pregabalin (Lyrica) 200 mg PO TID [facility] Last Admin: 10/20/16 14:40 Dose: 200 mg Sertraline HCl (Zoloft) 100 mg PO BID [facility] Last Admin: 10/20/16 10:07 Dose: 100 mg Simvastatin (Zocor) 10 mg PO BEDTIME [facility] Last Admin: 10/19/16 21:59 Dose: 10 mg Sodium Chloride (Saline Flush) 10 ml FLUSH ASDIRECTED PRN PRN Reason: Keep Vein Open Last Admin: 10/20/16 12:47 Dose: 10 ml Zolpidem Tartrate (Ambien) 10 mg PO BEDTIME [facility] Last Admin: 10/19/16 21:59 Dose: 10 mg Discontinued Medications Hydrocodone Bitart/Acetaminophen ([place] 325-10 Mg) 0.5 tab PO Q4H PRN PRN Reason: Pain (moderate 4-6) Last Admin: 10/20/16 04:42 Dose: 0.5 tab Bupivacaine HCl (Sensorcaine-Mpf 0.5%) Confirm Administered Dose 20 ml .ROUTE .STK-MED ONE Stop: 10/18/16 05:55 Bupivacaine HCl (Sensorcaine-Mpf 0.5%) 5 ml INJECT .STK-MED ONE Stop: 10/18/16 07:21 Last Admin: 10/18/16 07:20 Dose: 5 ml Bupivacaine HCl (Sensorcaine-Mpf 0.5%) 3 ml INJECT .STK-MED ONE Stop: 10/18/16 07:37 Last Admin: 10/18/16 07:36 Dose: 3 ml Bupivacaine HCl (Sensorcaine-Mpf 0.5%) 2 ml INJECT .STK-MED ONE Stop: 10/18/16 08:03 Last Admin: 10/18/16 08:02 Dose: 2 ml Bupivacaine HCl (Sensorcaine-Mpf 0.5%) 10 ml INJECT .STK-MED ONE Stop: 10/18/16 17:12 Ephedrine Sulfate (Ephedrine Sulfate) Confirm Administered Dose 50 mg .ROUTE .STK-MED ONE Stop: 10/18/16 06:34 Famotidine (Pepcid) Confirm Administered Dose 20 mg .ROUTE .STK-MED ONE Stop: 10/18/16 06:33 Famotidine (Pepcid) 20 mg IV .STK-MED ONE Stop: 10/18/16 14:11 Fentanyl (Sublimaze) Confirm Administered Dose 100 mcg .ROUTE .STK-MED ONE Stop: 10/18/16 06:32 Fentanyl (Sublimaze) 100 mcg IV .STK-MED ONE Stop: 10/18/16 14:11 Gentamicin Sulfate (Gentamicin) Confirm Administered Dose 80 mg .ROUTE .STK-MED ONE Stop: 10/18/16 06:35 Gentamicin Sulfate (Gentamicin) 80 mg .XX .[facility] ONE Stop: 10/18/16 07:38 Last Admin: 10/18/16 07:37 Dose: 80 mg Gentamicin Sulfate (Gentamicin) Confirm Administered Dose 80 mg .ROUTE .STK-MED ONE Stop: 10/18/16 07:42 Gentamicin Sulfate (Gentamicin) 80 mg .XX .[facility]-MED ONE Stop: 10/18/16 07:47 Last Admin: 10/18/16 07:46 Dose: 80 mg Heparin Sodium (Porcine) (Heparin Sodium) 5,000 units SUBCUT Q8HR [facility] Last Admin: 10/19/16 05:37 Dose: 5,000 units Piperacillin Sod/Tazobactam (Sod 3.375 gm/ Sodium Chloride) 100 mls @ 200 mls/ hr IV ONETIME ONE Stop: 10/17/16 18:11 Last Admin: 10/17/16 18:02 Dose: 200 mls/hr Sodium Chloride (Normal Saline) 1,000 mls @ 999 mls/hr IV ASDIRECTED [facility] Stop: 10/19/16 21:01 Last Admin: 10/17/16 22:32 Dose: 999 mls/hr Magnesium Sulfate 2 gm/ Premix 50 mls @ 25 mls/hr IV ONETIME ONE Stop: 10/18/16 09:59 Last Admin: 10/18/16 09:25 Dose: 25 mls/hr Isosorbide Mononitrate (Imdur) Confirm Administered Dose 30 mg .ROUTE .STK-MED ONE Stop: 10/18/16 06:24 Last Admin: 10/18/16 06:33 Dose: Not Given Lidocaine HCl (Xylocaine-Mpf 1%) Confirm Administered Dose 30 ml .ROUTE .STK- MED ONE Stop: 10/18/16 05:55 Lidocaine HCl (Xylocaine 2%) Confirm Administered Dose 20 ml .ROUTE .STK-MED ONE Stop: 10/18/16 06:34 Lidocaine HCl (Xylocaine-Mpf 1%) 5 ml INJECT .STK-MED ONE Stop: 10/18/16 07:21 Last Admin: 10/18/16 07:20 Dose: 5 ml Lidocaine HCl (Xylocaine-Mpf 1%) 3 ml INJECT .STK-MED ONE Stop: 10/18/16 07:37 Last Admin: 10/18/16 07:36 Dose: 3 ml Lidocaine HCl (Xylocaine-Mpf 1%) 2 ml INJECT .STK-MED ONE Stop: 10/18/16 08:03 Last Admin: 10/18/16 08:02 Dose: 2 ml Lidocaine HCl (Xylocaine-Mpf 1%) 30 ml INJECT .STK-MED ONE Stop: 10/18/16 17:12 Metoprolol Succinate (Toprol Xl) Confirm Administered Dose 50 mg .ROUTE .STK- MED ONE Stop: 10/18/16 06:17 Last Admin: 10/18/16 06:27 Dose: 50 mg Midazolam HCl (Versed 1 Mg/Ml) Confirm Administered Dose 4 mg .ROUTE .STK-MED ONE Stop: 10/18/16 06:32 Midazolam HCl (Versed 1 Mg/Ml) 4 mg IV .STK-MED ONE Stop: 10/18/16 14:11 Mometasone Furoate/Formoterol Fumar (Dulera 200-5 Mcg) 0 puff IH DAILY [facility] Last Admin: 10/18/16 12:52 Dose: Not Given Morphine Sulfate (Morphine) 2 mg IVPUSH Q2H PRN PRN Reason: Pain (severe 7-10) Last Admin: 10/20/16 10:18 Dose: 2 mg Docusate Sodium [ (Colace] 50mg) 50 mg PO BID PRN PRN Reason: Constipation Ondansetron HCl (Zofran) Confirm Administered Dose 4 mg .ROUTE .STK-MED ONE Stop: 10/18/16 06:32 Ondansetron HCl (Zofran) 4 mg IV .STK-MED ONE Stop: 10/18/16 14:11 Fluticasone/Salmeterol [Advair 250-50] Pt's Own Med 0 each INH BID [facility] Phenylephrine HCl (Agustin-Synephrine) Confirm Administered Dose 10 mg .ROUTE .STK- MED ONE Stop: 10/18/16 06:34 Propofol (Diprivan 20 Ml) Confirm Administered Dose 600 mg .ROUTE .STK-MED ONE Stop: 10/18/16 06:32 Propofol (Diprivan 20 Ml) 80 mg IV .STK-MED ONE Stop: 10/18/16 14:11 Succinylcholine Chloride (Quelicin) Confirm Administered Dose 200 mg .ROUTE .STK -MED ONE Stop: 10/18/16 06:34 Zolpidem Tartrate (Ambien) 5 mg PO BEDTIME PRN PRN Reason: Sleep - Exam General: alert, oriented, no acute distress Physical Findings Comments:: Right foot with incision site coapted, except for small area on central portion. No expressible purulent drainage from incision site today. I did also irrigate and there was no purulence upon irrigation. Erythema to foot is resolving, looks improved again from yesterday. No pain with palpation. Pulses intact to right LE. No areas or fluctuance present. Consult PN Assessment/Plan Procedures: Procedures ANESTH LOWER LEG BONE SURG (05/31/16) ASSAY OF CK (CPK) (05/03/16) COMPLETE CBC W/AUTO DIFF WBC (06/11/16) COMPREHEN METABOLIC PANEL (06/11/16) CT HEAD/BRAIN W/O DYE (05/03/16) CT NECK SPINE W/O DYE (05/03/16) CULTR BACTERIA EXCEPT BLOOD (05/31/16) CULTURE AEROBIC IDENTIFY (05/31/16) CULTURE OTHR SPECIMN AEROBIC (05/31/16) EMERGENCY DEPT VISIT (06/11/16) EMERGENCY DEPT VISIT (05/03/16) EMERGENCY DEPT VISIT (05/03/16) EMERGENCY DEPT VISIT (04/04/15) GLUCOSE BLOOD TEST (06/11/16) HYDRATE IV INFUSION ADD-ON (06/11/16) HYDRATION IV INFUSION INIT (06/11/16) MICROBE SUSCEPTIBLE GANESH (05/31/16) MRI JNT OF LWR EXTRE W/O DYE (05/21/14) PARTIAL AMPUTATION OF TOE (05/31/16) PROTHROMBIN TIME (05/03/16) ROUTINE VENIPUNCTURE (06/11/16) TDAP VACCINE 7 YRS/> IM (05/03/16) THER/PROPH/DIAG INJ SC/IM (05/03/16) X-RAY EXAM OF HAND (05/03/16) Problem List Initiated/Reviewed/Updated: Yes Plan: Dressing changed today, amputation site looks good with less erythema and no expressible drainage. White count is up slightly again today and we are still awaiting cultures & sens. Since white count was up slightly I did do an irriagation of the foot at bedside today with NS/betadine mixture. No purulence was able to be expressed during that procedure. I then did pack the area with iodoform packing. I will change the packing tomorrow and possible re-irrigate. I will reevalaute him again tomorrow and change the dressing at that time. Keep dressing intact. Post op shoe when up to the bathroom. Elevate right LE at all times to heart level.
[2016-10-20] MEDS: Insulin Detemir 100 Units/ML 3 ML Pen SUBCUT SCH (21:32)
[2016-10-20] MEDS: Zolpidem 5 MG Tab PO SCH (21:40)
[2016-10-20] MEDS: Simvastatin 10 MG Tab PO SCH (21:40)
[2016-10-21] MEDS: Piperacillin/Tazobactam 3.375 GM in Sodium Chloride 0.9% 100 ML IV SCH ×4 (00:30→18:55)
[2016-10-21] MEDS: Zolpidem 5 MG Tab PO SCH (00:30)
[2016-10-21] MEDS: Albuterol/Ipratropium 3.0-0.5 MG/3 ML Neb Soln NEB SCH ×3 (00:38→07:37)
[2016-10-21] MEDS: Heparin Sodium 5,000 Units/ML Vial SUBCUT SCH ×3 (05:55→21:55)
[2016-10-21] MEDS: Insulin Aspart 100 Units/ML 3 ML Pen SUBCUT SCH ×4 (08:06→21:55)
[2016-10-21] MEDS: Losartan 50 MG Tab PO SCH (10:19)
[2016-10-21] MEDS: Sertraline 50 MG Tab PO SCH ×2 (10:22→21:55)
[2016-10-21] MEDS: Acetaminophen/HYDROcodone 325-5 MG Tab PO PRN ×3 (10:23→18:56)
[2016-10-21] MEDS: metFORMIN 500 MG Tab PO SCH ×2 (10:23→21:56)
[2016-10-21] MEDS: Furosemide 20 MG Tab PO SCH (10:23)
[2016-10-21] MEDS: Omeprazole 20 MG Cap.CR PO SCH ×2 (10:25→21:56)
[2016-10-21] MEDS: Aspirin 81 MG Tab.EC PO SCH (10:25)
[2016-10-21] MEDS: Metoprolol Succinate 50 MG Tab.ER PO SCH (10:25)
[2016-10-21] MEDS: Pregabalin 50 MG Cap PO SCH ×3 (10:26→21:56)
[2016-10-21] MEDS: Isosorbide Mononitrate 30 MG Tab.ER PO SCH (10:26)
[2016-10-21] MEDS: glipiZIDE 5 MG Tab.ER PO SCH ×2 (10:26→21:56)
[2016-10-21] MEDS: SALMETEROL INH SCH (10:27)
[2016-10-21] MEDS: FLUTICASONE INH SCH (10:27)
[2016-10-21] MEDS: SITAGLIPTIN 100 MG PO SCH (10:27)
--- NOTE | 2016-10-21 10:30 | PCM.CONSN ---
- General Info Date of Service: 10/21/16 Admission Dx/Problem (Free Text): sepsis with right foot infection Subjective Update: Pt is POD3 s/p right foot 3rd digit amputation with debridement and wash out. Doing well today. States pain is controlled, is having some sharp nerve type pain to the right foot. Has been able to ambulate to the bathroom without any issues. Denies n/v/f/c/calf pain. - Review of Systems General: Reports: No Symptoms - Patient Data Vitals - most recent: Last Vital Signs Temp 36.4 C 10/21/16 08:31 Pulse 71 10/21/16 08:31 Resp 20 10/21/16 08:31 BP 154/83 H 10/21/16 08:31 Pulse Ox 92 L 10/21/16 08:31 Weight - most recent: 94.166 kg I&O - last 24 hours: Intake & Output 10/20/16 10/21/16 10/21/16 22:59 06:59 14:59 Intake Total 104 246 Output Total 1000 800 Balance -896 -554 Lab Results last 24 hrs: Laboratory Results - last 24 hr 10/20/16 10/20/16 10/20/16 Range/Units 11:03 16:44 20:50 POC Glucose 174 H 224 H 222 H (70-105) mg/dl 10/21/16 Range/Units 07:41 POC Glucose 65 L (70-105) mg/dl Ganesh Results last 24 hrs: Microbiology 10/18/16 07:55 Wound Culture - Final Toe, Right - Right Third Streptococcus Agalactiae Grp B Staphylococcus Aureus Anaerobic Culture - Final 10/18/16 07:50 Wound Culture - Final Toe, Right - Right Third Staphylococcus Aureus Streptococcus Agalactiae Grp B Anaerobic Culture - Final No Growth Med Orders - Current: Current Medications Acetaminophen (Tylenol) 650 mg PO Q4H PRN PRN Reason: Pain (Mild 1-3)/fever Last Admin: 10/18/16 14:12 Dose: 650 mg Hydrocodone Bitart/Acetaminophen ([place] 325-5 Mg) 1 tab PO Q4H PRN PRN Reason: Pain (moderate 4-6) Last Admin: 10/20/16 21:41 Dose: 1 tab Albuterol (Proventil Hfa) 0 gm INH Q6HR PRN PRN Reason: Shortness of Breath Last Admin: 10/18/16 12:47 Dose: 1 puff Albuterol/Ipratropium (Duoneb 3.0-0.5 Mg/3 Ml) 3 ml NEB Q6HRRT [facility] Last Admin: 10/21/16 07:37 Dose: 3 ml Aspirin (Halfprin) 81 mg PO DAILY [facility] Last Admin: 10/20/16 10:05 Dose: 81 mg Bupropion HCl (Wellbutrin Xl) 150 mg PO DAILY [facility] Last Admin: 10/20/16 10:04 Dose: 150 mg Docusate Sodium (Colace) 100 mg PO BID PRN PRN Reason: Constipation Furosemide (Lasix) 20 mg PO DAILY [facility] Last Admin: 10/20/16 10:10 Dose: 20 mg Glipizide (Glucotrol Xl) 5 mg PO BID [facility] Last Admin: 10/20/16 21:40 Dose: 5 mg Heparin Sodium (Porcine) (Heparin Sodium) 5,000 units SUBCUT Q8HR [facility] Last Admin: 10/21/16 05:55 Dose: 5,000 units Piperacillin Sod/Tazobactam (Sod 3.375 gm/ Sodium Chloride) 100 mls @ 200 mls/ hr IV Q6H [facility] Last Admin: 10/21/16 05:55 Dose: 200 mls/hr Insulin Aspart (Novolog) 0 unit SUBCUT QIDACANDBED [facility] PRN Reason: Protocol Last Admin: 10/21/16 08:06 Dose: Not Given Insulin Detemir (Levemir) 17 unit SUBCUT BEDTIME [facility] Last Admin: 10/20/16 21:32 Dose: 17 units Isosorbide Mononitrate (Imdur) 30 mg PO DAILY [facility] Last Admin: 10/20/16 10:05 Dose: 30 mg Losartan Potassium (Cozaar) 100 mg PO DAILY [facility] Last Admin: 10/20/16 10:08 Dose: 100 mg Metformin HCl (Glucophage) 1,000 mg PO BID [facility] Last Admin: 10/20/16 21:41 Dose: 1,000 mg Metoprolol Succinate (Toprol Xl) 50 mg PO DAILY [facility] Last Admin: 10/20/16 10:08 Dose: 50 mg Nicotine (Habitrol) 21 mg TRDERM DAILY PRN PRN Reason: Nicotine withdrawal Omeprazole (Omeprazole) 20 mg PO BID [facility] Last Admin: 10/20/16 21:40 Dose: 20 mg Ondansetron HCl (Zofran) 4 mg IVPUSH Q6H PRN PRN Reason: Nausea/Vomiting Sitagliptin [Januvia ] 100mgPt's Own Med 0 each PO DAILY [facility] Last Admin: 10/20/16 10:11 Dose: 1 each Fluticasone/Salmeterol [Advair 250-50] Pt's Own Med 0 each INH DAILY [facility] Last Admin: 10/20/16 10:12 Dose: 1 each Polyethylene Glycol (Miralax) 17 gm PO DAILY PRN PRN Reason: Constipation Pregabalin (Lyrica) 200 mg PO TID [facility] Last Admin: 10/20/16 21:40 Dose: 200 mg Sertraline HCl (Zoloft) 100 mg PO BID [facility] Last Admin: 10/20/16 21:39 Dose: 100 mg Simvastatin (Zocor) 10 mg PO BEDTIME [facility] Last Admin: 10/20/16 21:40 Dose: 10 mg Sodium Chloride (Saline Flush) 10 ml FLUSH ASDIRECTED PRN PRN Reason: Keep Vein Open Last Admin: 10/20/16 18:07 Dose: 10 ml Zolpidem Tartrate (Ambien) 10 mg PO BEDTIME [facility] Last Admin: 10/21/16 00:30 Dose: 10 mg Discontinued Medications Hydrocodone Bitart/Acetaminophen ([place] 325-10 Mg) 0.5 tab PO Q4H PRN PRN Reason: Pain (moderate 4-6) Last Admin: 10/20/16 04:42 Dose: 0.5 tab Bupivacaine HCl (Sensorcaine-Mpf 0.5%) Confirm Administered Dose 20 ml .ROUTE .STK-MED ONE Stop: 10/18/16 05:55 Bupivacaine HCl (Sensorcaine-Mpf 0.5%) 5 ml INJECT .STK-MED ONE Stop: 10/18/16 07:21 Last Admin: 10/18/16 07:20 Dose: 5 ml Bupivacaine HCl (Sensorcaine-Mpf 0.5%) 3 ml INJECT .STK-MED ONE Stop: 10/18/16 07:37 Last Admin: 10/18/16 07:36 Dose: 3 ml Bupivacaine HCl (Sensorcaine-Mpf 0.5%) 2 ml INJECT .STK-MED ONE Stop: 10/18/16 08:03 Last Admin: 10/18/16 08:02 Dose: 2 ml Bupivacaine HCl (Sensorcaine-Mpf 0.5%) 10 ml INJECT .STK-MED ONE Stop: 10/18/16 17:12 Ephedrine Sulfate (Ephedrine Sulfate) Confirm Administered Dose 50 mg .ROUTE .STK-MED ONE Stop: 10/18/16 06:34 Famotidine (Pepcid) Confirm Administered Dose 20 mg .ROUTE .STK-MED ONE Stop: 10/18/16 06:33 Famotidine (Pepcid) 20 mg IV .STK-MED ONE Stop: 10/18/16 14:11 Fentanyl (Sublimaze) Confirm Administered Dose 100 mcg .ROUTE .STK-MED ONE Stop: 10/18/16 06:32 Fentanyl (Sublimaze) 100 mcg IV .STK-MED ONE Stop: 10/18/16 14:11 Gentamicin Sulfate (Gentamicin) Confirm Administered Dose 80 mg .ROUTE .ST-MED ONE Stop: 10/18/16 06:35 Gentamicin Sulfate (Gentamicin) 80 mg .XX .ST-MED ONE Stop: 10/18/16 07:38 Last Admin: 10/18/16 07:37 Dose: 80 mg Gentamicin Sulfate (Gentamicin) Confirm Administered Dose 80 mg .ROUTE .ST-MED ONE Stop: 10/18/16 07:42 Gentamicin Sulfate (Gentamicin) 80 mg .XX .ST-MED ONE Stop: 10/18/16 07:47 Last Admin: 10/18/16 07:46 Dose: 80 mg Heparin Sodium (Porcine) (Heparin Sodium) 5,000 units SUBCUT Q8HR [facility] Last Admin: 10/19/16 05:37 Dose: 5,000 units Piperacillin Sod/Tazobactam (Sod 3.375 gm/ Sodium Chloride) 100 mls @ 200 mls/ hr IV ONETIME ONE Stop: 10/17/16 18:11 Last Admin: 10/17/16 18:02 Dose: 200 mls/hr Sodium Chloride (Normal Saline) 1,000 mls @ 999 mls/hr IV ASDIRECTED [facility] Stop: 10/19/16 21:01 Last Admin: 10/17/16 22:32 Dose: 999 mls/hr Magnesium Sulfate 2 gm/ Premix 50 mls @ 25 mls/hr IV ONETIME ONE Stop: 10/18/16 09:59 Last Admin: 10/18/16 09:25 Dose: 25 mls/hr Isosorbide Mononitrate (Imdur) Confirm Administered Dose 30 mg .ROUTE .STK-MED ONE Stop: 10/18/16 06:24 Last Admin: 10/18/16 06:33 Dose: Not Given Lidocaine HCl (Xylocaine-Mpf 1%) Confirm Administered Dose 30 ml .ROUTE .STK- MED ONE Stop: 10/18/16 05:55 Lidocaine HCl (Xylocaine 2%) Confirm Administered Dose 20 ml .ROUTE .STK-MED ONE Stop: 10/18/16 06:34 Lidocaine HCl (Xylocaine-Mpf 1%) 5 ml INJECT .STK-MED ONE Stop: 10/18/16 07:21 Last Admin: 10/18/16 07:20 Dose: 5 ml Lidocaine HCl (Xylocaine-Mpf 1%) 3 ml INJECT .STK-MED ONE Stop: 10/18/16 07:37 Last Admin: 10/18/16 07:36 Dose: 3 ml Lidocaine HCl (Xylocaine-Mpf 1%) 2 ml INJECT .STK-MED ONE Stop: 10/18/16 08:03 Last Admin: 10/18/16 08:02 Dose: 2 ml Lidocaine HCl (Xylocaine-Mpf 1%) 30 ml INJECT .STK-MED ONE Stop: 10/18/16 17:12 Metoprolol Succinate (Toprol Xl) Confirm Administered Dose 50 mg .ROUTE .STK- MED ONE Stop: 10/18/16 06:17 Last Admin: 10/18/16 06:27 Dose: 50 mg Midazolam HCl (Versed 1 Mg/Ml) Confirm Administered Dose 4 mg .ROUTE .STK-MED ONE Stop: 10/18/16 06:32 Midazolam HCl (Versed 1 Mg/Ml) 4 mg IV .STK-MED ONE Stop: 10/18/16 14:11 Mometasone Furoate/Formoterol Fumar (Dulera 200-5 Mcg) 0 puff IH DAILY [facility] Last Admin: 10/18/16 12:52 Dose: Not Given Morphine Sulfate (Morphine) 2 mg IVPUSH Q2H PRN PRN Reason: Pain (severe 7-10) Last Admin: 10/20/16 10:18 Dose: 2 mg Docusate Sodium [ (Colace] 50mg) 50 mg PO BID PRN PRN Reason: Constipation Ondansetron HCl (Zofran) Confirm Administered Dose 4 mg .ROUTE .STK-MED ONE Stop: 10/18/16 06:32 Ondansetron HCl (Zofran) 4 mg IV .STK-MED ONE Stop: 10/18/16 14:11 Fluticasone/Salmeterol [Advair 250-50] Pt's Own Med 0 each INH BID [facility] Phenylephrine HCl (Agustin-Synephrine) Confirm Administered Dose 10 mg .ROUTE .STK- MED ONE Stop: 10/18/16 06:34 Propofol (Diprivan 20 Ml) Confirm Administered Dose 600 mg .ROUTE .STK-MED ONE Stop: 10/18/16 06:32 Propofol (Diprivan 20 Ml) 80 mg IV .STK-MED ONE Stop: 10/18/16 14:11 Succinylcholine Chloride (Quelicin) Confirm Administered Dose 200 mg .ROUTE .STK -MED ONE Stop: 10/18/16 06:34 Zolpidem Tartrate (Ambien) 5 mg PO BEDTIME PRN PRN Reason: Sleep - Exam General: alert, oriented, no acute distress Physical Findings Comments:: Right foot with healing incision present 3rd digit amputation site, with central portion of the surgical site open, there was no expressible drainage present today. Resolving erythema to right forefoot, no areas of fluctuance present. No pain with palpation to right forefoot or RLE. DP/PT pulses are intact. Consult PN Assessment/Plan POD#: 3 Procedures: Procedures ANESTH LOWER LEG BONE SURG (05/31/16) ASSAY OF CK (CPK) (05/03/16) COMPLETE CBC W/AUTO DIFF WBC (06/11/16) COMPREHEN METABOLIC PANEL (06/11/16) CT HEAD/BRAIN W/O DYE (05/03/16) CT NECK SPINE W/O DYE (05/03/16) CULTR BACTERIA EXCEPT BLOOD (05/31/16) CULTURE AEROBIC IDENTIFY (05/31/16) CULTURE OTHR SPECIMN AEROBIC (05/31/16) EMERGENCY DEPT VISIT (06/11/16) EMERGENCY DEPT VISIT (05/03/16) EMERGENCY DEPT VISIT (05/03/16) EMERGENCY DEPT VISIT (04/04/15) GLUCOSE BLOOD TEST (06/11/16) HYDRATE IV INFUSION ADD-ON (06/11/16) HYDRATION IV INFUSION INIT (06/11/16) MICROBE SUSCEPTIBLE GANESH (05/31/16) MRI JNT OF LWR EXTRE W/O DYE (05/21/14) PARTIAL AMPUTATION OF TOE (05/31/16) PROTHROMBIN TIME (05/03/16) ROUTINE VENIPUNCTURE (06/11/16) TDAP VACCINE 7 YRS/> IM (05/03/16) THER/PROPH/DIAG INJ SC/IM (05/03/16) X-RAY EXAM OF HAND (05/03/16) (1) Status post amputation of lesser toe of right foot SNOMED Code(s): 286695062, 819808445 Code(s): Z89.421 - ACQUIRED ABSENCE OF OTHER RIGHT TOE(S) Current Visit: Yes (2) Type 2 diabetes mellitus with right diabetic foot infection SNOMED Code(s): 28460703 Code(s): E11.69 - TYPE 2 DIABETES MELLITUS WITH OTHER SPECIFIED COMPLICATION ; L08.9 - LOCAL INFECTION OF THE SKIN AND SUBCUTANEOUS TISSUE, UNSP Priority: Medium Current Visit: No Onset Date: 01/29/15 Problem List Initiated/Reviewed/Updated: Yes Plan: Dressing changed today, amputation site looks good again and improving with less erythema and no expressible drainage. I will check White count again tomorrow. C&S has returned and will continue IV zosyn as before. I did do an irriagation of the foot at bedside again today with NS/betadine mixture. No purulence was able to be expressed during that procedure. I then did pack the area with iodoform packing. I will change the packing tomorrow and possible re- irrigate. I will reevalaute him again tomorrow and change the dressing at that time. Keep dressing intact. Post op shoe when up to the bathroom. Elevate right LE at all times to heart level.
[2016-10-21] MEDS: buPROPion 150 MG Tab.ER PO SCH (10:33)
[2016-10-21] MEDS ORDERED: Albuterol/Ipratropium 3.0-0.5 MG/3 ML Neb Soln NEB PRN (11:19)
[2016-10-21] MEDS: Insulin Detemir 100 Units/ML 3 ML Pen SUBCUT SCH (21:54)
[2016-10-21] MEDS: Simvastatin 10 MG Tab PO SCH (21:56)
[2016-10-22] MEDS: Piperacillin/Tazobactam 3.375 GM in Sodium Chloride 0.9% 100 ML IV SCH ×2 (00:18→06:16)
[2016-10-22] MEDS: Zolpidem 5 MG Tab PO SCH (00:23)
[2016-10-22] MEDS: Acetaminophen/HYDROcodone 325-5 MG Tab PO PRN ×3 (00:28→17:22)
[2016-10-22] MEDS: Heparin Sodium 5,000 Units/ML Vial SUBCUT SCH ×3 (06:20→21:39)
[2016-10-22] MEDS ORDERED: Levofloxacin/Dextrose 5%-Water 500 MG in Premix Bag 1 BAG IV SCH (08:00)
[2016-10-22] MEDS: Insulin Aspart 100 Units/ML 3 ML Pen SUBCUT SCH ×4 (08:48→21:41)
[2016-10-22] MEDS: Sodium Chloride 0.9% 10 ML Syringe FLUSH PRN (09:26)
[2016-10-22] MEDS: Pregabalin 50 MG Cap PO SCH ×3 (09:36→21:40)
[2016-10-22] MEDS: buPROPion 150 MG Tab.ER PO SCH (09:37)
[2016-10-22] MEDS: Furosemide 20 MG Tab PO SCH (09:38)
[2016-10-22] MEDS: glipiZIDE 5 MG Tab.ER PO SCH ×2 (09:38→21:40)
[2016-10-22] MEDS: Omeprazole 20 MG Cap.CR PO SCH ×2 (09:38→21:40)
[2016-10-22] MEDS: Sertraline 50 MG Tab PO SCH ×2 (09:38→21:41)
[2016-10-22] MEDS: metFORMIN 500 MG Tab PO SCH ×2 (09:39→21:40)
[2016-10-22] MEDS: Aspirin 81 MG Tab.EC PO SCH (09:39)
[2016-10-22] MEDS: Losartan 50 MG Tab PO SCH (09:44)
[2016-10-22] MEDS: Isosorbide Mononitrate 30 MG Tab.ER PO SCH (09:44)
[2016-10-22] MEDS: SITAGLIPTIN 100 MG PO SCH (09:51)
[2016-10-22] MEDS: FLUTICASONE INH SCH (09:53)
[2016-10-22] MEDS: SALMETEROL INH SCH (09:53)
[2016-10-22] MEDS: Metoprolol Succinate 50 MG Tab.ER PO SCH (10:14)
[2016-10-22] MEDS ORDERED: Doxycycline 100 MG Cap PO SCH (12:00)
[2016-10-22] MEDS ORDERED: diphenhydrAMINE 50 MG/ML SDV IVPUSH ONE (12:41)
--- NOTE | 2016-10-22 15:04 | PCM.CONSN ---
- General Info Date of Service: 10/22/16 Admission Dx/Problem (Free Text): sepsis with right foot infection Subjective Update: Pt is POD4 s/p right foot 3rd digit amputation with debridement and wash out. Pt was napping when I was seeing him today, woke up briefly and reports he is doing well today, no new complaints. States pain is controlled, denies pain in the foot today. Has been able to ambulate to the bathroom without any issues. Denies n/v/f/c/calf pain. Functional Status: Reports: pain controlled - Review of Systems General: Reports: No Symptoms - Patient Data Vitals - most recent: Last Vital Signs Temp 37.1 C 10/22/16 08:07 Pulse 70 10/22/16 10:14 Resp 18 10/22/16 08:07 BP 141/83 H 10/22/16 10:14 Pulse Ox 95 10/22/16 08:07 Weight - most recent: 93.259 kg I&O - last 24 hours: Intake & Output 10/21/16 10/22/16 10/22/16 22:59 06:59 14:59 Intake Total 296 500 114 Output Total 2100 1000 900 Balance -1804 -500 -786 Lab Results last 24 hrs: Laboratory Results - last 24 hr 10/21/16 10/21/16 10/22/16 Range/Units 16:55 20:59 07:25 WBC 11.3 H (5.0-10.0) 10^3/uL RBC 3.71 L (4.6-6.2) 10^6/uL Hgb 11.8 L (14.0-18.0) g/dL Hct 36.1 L (40.0-54.0) % MCV 97.3 (80-100) fL MCH 31.8 (27.0-34.0) pg MCHC 32.7 L (33.0-35.0) g/dL Plt Count 166 (150-450) 10^3/uL Neut % (Auto) 74.5 (42.2-75.2) % Lymph % (Auto) 17.7 L (20.5-50.1) % Lucas % (Auto) 5.8 (2-8) % Eos % (Auto) 1.7 (1.0-3.0) % Baso % (Auto) 0.3 (0.0-1.0) % POC Glucose 73 153 H (70-105) mg/dl 10/22/16 10/22/16 Range/Units 07:40 11:54 WBC (5.0-10.0) 10^3/uL RBC (4.6-6.2) 10^6/uL Hgb (14.0-18.0) g/dL Hct (40.0-54.0) % MCV (80-100) fL MCH (27.0-34.0) pg MCHC (33.0-35.0) g/dL Plt Count (150-450) 10^3/uL Neut % (Auto) (42.2-75.2) % Lymph % (Auto) (20.5-50.1) % Lucas % (Auto) (2-8) % Eos % (Auto) (1.0-3.0) % Baso % (Auto) (0.0-1.0) % POC Glucose 88 91 (70-105) mg/dl Med Orders - Current: Current Medications Acetaminophen (Tylenol) 650 mg PO Q4H PRN PRN Reason: Pain (Mild 1-3)/fever Last Admin: 10/18/16 14:12 Dose: 650 mg Hydrocodone Bitart/Acetaminophen ([place] 325-5 Mg) 1 tab PO Q4H PRN PRN Reason: Pain (moderate 4-6) Last Admin: 10/22/16 10:04 Dose: 1 tab Albuterol (Proventil Hfa) 0 gm INH Q6HR PRN PRN Reason: Shortness of Breath Last Admin: 10/18/16 12:47 Dose: 1 puff Albuterol/Ipratropium (Duoneb 3.0-0.5 Mg/3 Ml) 3 ml NEB Q6HRRT PRN PRN Reason: Shortness of Breath Amoxicillin/Clavulanate Potassium (Augmentin 875 Mg/125 Mg) 1 tab PO Q12HR [facility] Aspirin (Halfprin) 81 mg PO DAILY [facility] Last Admin: 10/22/16 09:39 Dose: 81 mg Bupropion HCl (Wellbutrin Xl) 150 mg PO DAILY [facility] Last Admin: 10/22/16 09:37 Dose: 150 mg Docusate Sodium (Colace) 100 mg PO BID PRN PRN Reason: Constipation Furosemide (Lasix) 20 mg PO DAILY [facility] Last Admin: 10/22/16 09:38 Dose: 20 mg Glipizide (Glucotrol Xl) 5 mg PO BID [facility] Last Admin: 10/22/16 09:38 Dose: 5 mg Heparin Sodium (Porcine) (Heparin Sodium) 5,000 units SUBCUT Q8HR [facility] Last Admin: 10/22/16 13:49 Dose: 5,000 units Insulin Aspart (Novolog) 0 unit SUBCUT QIDACANDBED [facility] PRN Reason: Protocol Last Admin: 10/22/16 12:57 Dose: Not Given Insulin Detemir (Levemir) 17 unit SUBCUT BEDTIME [facility] Last Admin: 10/21/16 21:54 Dose: 17 units Isosorbide Mononitrate (Imdur) 30 mg PO DAILY [facility] Last Admin: 10/22/16 09:44 Dose: 30 mg Losartan Potassium (Cozaar) 100 mg PO DAILY [facility] Last Admin: 10/22/16 09:44 Dose: 100 mg Metformin HCl (Glucophage) 1,000 mg PO BID [facility] Last Admin: 10/22/16 09:39 Dose: 1,000 mg Metoprolol Succinate (Toprol Xl) 100 mg PO DAILY [facility] Last Admin: 10/22/16 10:14 Dose: 100 mg Nicotine (Habitrol) 21 mg TRDERM DAILY PRN PRN Reason: Nicotine withdrawal Omeprazole (Omeprazole) 20 mg PO BID [facility] Last Admin: 10/22/16 09:38 Dose: 20 mg Ondansetron HCl (Zofran) 4 mg IVPUSH Q6H PRN PRN Reason: Nausea/Vomiting Sitagliptin [Januvia ] 100mgPt's Own Med 0 each PO DAILY [facility] Last Admin: 10/22/16 09:51 Dose: 1 each Fluticasone/Salmeterol [Advair 250-50] Pt's Own Med 0 each INH DAILY [facility] Last Admin: 10/22/16 09:53 Dose: 1 each Polyethylene Glycol (Miralax) 17 gm PO DAILY PRN PRN Reason: Constipation Pregabalin (Lyrica) 200 mg PO TID [facility] Last Admin: 10/22/16 13:50 Dose: 200 mg Sertraline HCl (Zoloft) 100 mg PO BID [facility] Last Admin: 10/22/16 09:38 Dose: 100 mg Simvastatin (Zocor) 10 mg PO BEDTIME [facility] Last Admin: 10/21/16 21:56 Dose: 10 mg Sodium Chloride (Saline Flush) 10 ml FLUSH ASDIRECTED PRN PRN Reason: Keep Vein Open Last Admin: 10/22/16 09:26 Dose: 10 ml Zolpidem Tartrate (Ambien) 10 mg PO BEDTIME [facility] Last Admin: 10/22/16 00:23 Dose: 10 mg Discontinued Medications Hydrocodone Bitart/Acetaminophen ([place] 325-10 Mg) 0.5 tab PO Q4H PRN PRN Reason: Pain (moderate 4-6) Last Admin: 10/20/16 04:42 Dose: 0.5 tab Albuterol/Ipratropium (Duoneb 3.0-0.5 Mg/3 Ml) 3 ml NEB Q6HRRT [facility] Last Admin: 10/21/16 07:37 Dose: 3 ml Bupivacaine HCl (Sensorcaine-Mpf 0.5%) Confirm Administered Dose 20 ml .ROUTE .STK-MED ONE Stop: 10/18/16 05:55 Bupivacaine HCl (Sensorcaine-Mpf 0.5%) 5 ml INJECT .STK-MED ONE Stop: 10/18/16 07:21 Last Admin: 10/18/16 07:20 Dose: 5 ml Bupivacaine HCl (Sensorcaine-Mpf 0.5%) 3 ml INJECT .STK-MED ONE Stop: 10/18/16 07:37 Last Admin: 10/18/16 07:36 Dose: 3 ml Bupivacaine HCl (Sensorcaine-Mpf 0.5%) 2 ml INJECT .STK-MED ONE Stop: 10/18/16 08:03 Last Admin: 10/18/16 08:02 Dose: 2 ml Bupivacaine HCl (Sensorcaine-Mpf 0.5%) 10 ml INJECT .STK-MED ONE Stop: 10/18/16 17:12 Diphenhydramine HCl (Benadryl) 25 mg IVPUSH ONETIME ONE Stop: 10/22/16 12:42 Last Admin: 10/22/16 12:52 Dose: 25 mg Doxycycline Hyclate (Vibramycin) 100 mg PO BID [facility] Last Admin: 10/22/16 13:50 Dose: 100 mg Ephedrine Sulfate (Ephedrine Sulfate) Confirm Administered Dose 50 mg .ROUTE .STK-MED ONE Stop: 10/18/16 06:34 Famotidine (Pepcid) Confirm Administered Dose 20 mg .ROUTE .STK-MED ONE Stop: 10/18/16 06:33 Famotidine (Pepcid) 20 mg IV .STK-MED ONE Stop: 10/18/16 14:11 Fentanyl (Sublimaze) Confirm Administered Dose 100 mcg .ROUTE .STK-MED ONE Stop: 10/18/16 06:32 Fentanyl (Sublimaze) 100 mcg IV .STK-MED ONE Stop: 10/18/16 14:11 Gentamicin Sulfate (Gentamicin) Confirm Administered Dose 80 mg .ROUTE .STK-MED ONE Stop: 10/18/16 06:35 Gentamicin Sulfate (Gentamicin) 80 mg .XX .STK-MED ONE Stop: 10/18/16 07:38 Last Admin: 10/18/16 07:37 Dose: 80 mg Gentamicin Sulfate (Gentamicin) Confirm Administered Dose 80 mg .ROUTE .ST-MED ONE Stop: 10/18/16 07:42 Gentamicin Sulfate (Gentamicin) 80 mg .XX .STK-MED ONE Stop: 10/18/16 07:47 Last Admin: 10/18/16 07:46 Dose: 80 mg Heparin Sodium (Porcine) (Heparin Sodium) 5,000 units SUBCUT Q8HR [facility] Last Admin: 10/19/16 05:37 Dose: 5,000 units Piperacillin Sod/Tazobactam (Sod 3.375 gm/ Sodium Chloride) 100 mls @ 200 mls/ hr IV ONETIME ONE Stop: 10/17/16 18:11 Last Admin: 10/17/16 18:02 Dose: 200 mls/hr Piperacillin Sod/Tazobactam (Sod 3.375 gm/ Sodium Chloride) 100 mls @ 200 mls/ hr IV Q6H [facility] Last Admin: 10/22/16 06:16 Dose: 200 mls/hr Sodium Chloride (Normal Saline) 1,000 mls @ 999 mls/hr IV ASDIRECTED [facility] Stop: 10/19/16 21:01 Last Admin: 10/17/16 22:32 Dose: 999 mls/hr Magnesium Sulfate 2 gm/ Premix 50 mls @ 25 mls/hr IV ONETIME ONE Stop: 10/18/16 09:59 Last Admin: 10/18/16 09:25 Dose: 25 mls/hr Levofloxacin/Dextrose 500 mg/ (Premix) 100 mls @ 100 mls/hr IV Q24H [facility] Last Admin: 10/22/16 09:27 Dose: 100 mls/hr Isosorbide Mononitrate (Imdur) Confirm Administered Dose 30 mg .ROUTE .STK-MED ONE Stop: 10/18/16 06:24 Last Admin: 10/18/16 06:33 Dose: Not Given Lidocaine HCl (Xylocaine-Mpf 1%) Confirm Administered Dose 30 ml .ROUTE .STK- MED ONE Stop: 10/18/16 05:55 Lidocaine HCl (Xylocaine 2%) Confirm Administered Dose 20 ml .ROUTE .STK-MED ONE Stop: 10/18/16 06:34 Lidocaine HCl (Xylocaine-Mpf 1%) 5 ml INJECT .STK-MED ONE Stop: 10/18/16 07:21 Last Admin: 10/18/16 07:20 Dose: 5 ml Lidocaine HCl (Xylocaine-Mpf 1%) 3 ml INJECT .STK-MED ONE Stop: 10/18/16 07:37 Last Admin: 10/18/16 07:36 Dose: 3 ml Lidocaine HCl (Xylocaine-Mpf 1%) 2 ml INJECT .STK-MED ONE Stop: 10/18/16 08:03 Last Admin: 10/18/16 08:02 Dose: 2 ml Lidocaine HCl (Xylocaine-Mpf 1%) 30 ml INJECT .STK-MED ONE Stop: 10/18/16 17:12 Metoprolol Succinate (Toprol Xl) 50 mg PO DAILY [facility] Last Admin: 10/21/16 10:25 Dose: 50 mg Metoprolol Succinate (Toprol Xl) Confirm Administered Dose 50 mg .ROUTE .STK- MED ONE Stop: 10/18/16 06:17 Last Admin: 10/18/16 06:27 Dose: 50 mg Midazolam HCl (Versed 1 Mg/Ml) Confirm Administered Dose 4 mg .ROUTE .STK-MED ONE Stop: 10/18/16 06:32 Midazolam HCl (Versed 1 Mg/Ml) 4 mg IV .STK-MED ONE Stop: 10/18/16 14:11 Mometasone Furoate/Formoterol Fumar (Dulera 200-5 Mcg) 0 puff IH DAILY [facility] Last Admin: 10/18/16 12:52 Dose: Not Given Morphine Sulfate (Morphine) 2 mg IVPUSH Q2H PRN PRN Reason: Pain (severe 7-10) Last Admin: 10/20/16 10:18 Dose: 2 mg Docusate Sodium [ (Colace] 50mg) 50 mg PO BID PRN PRN Reason: Constipation Ondansetron HCl (Zofran) Confirm Administered Dose 4 mg .ROUTE .STK-MED ONE Stop: 10/18/16 06:32 Ondansetron HCl (Zofran) 4 mg IV .STK-MED ONE Stop: 10/18/16 14:11 Fluticasone/Salmeterol [Advair 250-50] Pt's Own Med 0 each INH BID [facility] Phenylephrine HCl (Agustin-Synephrine) Confirm Administered Dose 10 mg .ROUTE .STK- MED ONE Stop: 10/18/16 06:34 Propofol (Diprivan 20 Ml) Confirm Administered Dose 600 mg .ROUTE .STK-MED ONE Stop: 10/18/16 06:32 Propofol (Diprivan 20 Ml) 80 mg IV .STK-MED ONE Stop: 10/18/16 14:11 Succinylcholine Chloride (Quelicin) Confirm Administered Dose 200 mg .ROUTE .STK -MED ONE Stop: 10/18/16 06:34 Zolpidem Tartrate (Ambien) 5 mg PO BEDTIME PRN PRN Reason: Sleep - Exam General: alert, oriented, no acute distress Physical Findings Comments:: Right LE with dressing intact, upon removal his incision site appears to be healing well with packing in place, no purulent drainage able to be expressed from the foot today and resolving erythema, looks improved again since yesterday. No pain with palpation, no calf pain. No areas of fluctuance. Consult PN Assessment/Plan POD#: 3 Procedures: Procedures ANESTH LOWER LEG BONE SURG (05/31/16) ASSAY OF CK (CPK) (05/03/16) COMPLETE CBC W/AUTO DIFF WBC (06/11/16) COMPREHEN METABOLIC PANEL (06/11/16) CT HEAD/BRAIN W/O DYE (05/03/16) CT NECK SPINE W/O DYE (05/03/16) CULTR BACTERIA EXCEPT BLOOD (05/31/16) CULTURE AEROBIC IDENTIFY (05/31/16) CULTURE OTHR SPECIMN AEROBIC (05/31/16) EMERGENCY DEPT VISIT (06/11/16) EMERGENCY DEPT VISIT (05/03/16) EMERGENCY DEPT VISIT (05/03/16) EMERGENCY DEPT VISIT (04/04/15) GLUCOSE BLOOD TEST (06/11/16) HYDRATE IV INFUSION ADD-ON (06/11/16) HYDRATION IV INFUSION INIT (06/11/16) MICROBE SUSCEPTIBLE BRYON (05/31/16) MRI JNT OF LWR EXTRE W/O DYE (05/21/14) PARTIAL AMPUTATION OF TOE (05/31/16) PROTHROMBIN TIME (05/03/16) ROUTINE VENIPUNCTURE (06/11/16) TDAP VACCINE 7 YRS/> IM (05/03/16) THER/PROPH/DIAG INJ SC/IM (05/03/16) X-RAY EXAM OF HAND (05/03/16) (1) Status post amputation of lesser toe of right foot SNOMED Code(s): 975141775, 957605601 Code(s): Z89.421 - ACQUIRED ABSENCE OF OTHER RIGHT TOE(S) Current Visit: Yes (2) Type 2 diabetes mellitus with right diabetic foot infection SNOMED Code(s): 83868467 Code(s): E11.69 - TYPE 2 DIABETES MELLITUS WITH OTHER SPECIFIED COMPLICATION ; L08.9 - LOCAL INFECTION OF THE SKIN AND SUBCUTANEOUS TISSUE, UNSP Priority: Medium Current Visit: No Onset Date: 01/29/15 Problem List Initiated/Reviewed/Updated: Yes Plan: Dressing changed today, amputation site looks good again and improving with less erythema and no expressible drainage. White count is downtrending, will check again tomorrow. He was napping today and only woke briefly, fell back asleeep during dressing change. I did do an irriagation of the foot at bedside again today with NS/betadine mixture. No purulence was able to be expressed during that procedure. I then did pack the area with iodoform packing. I will change the packing tomorrow and possible re-irrigate, I think he is doing well at this point and with his wbc now downtrending I am planning on d/c tomorrow morning after dressing change, will most likely send him home on PO augmentin based on c&s. I will reevalaute him again tomorrow and change the dressing at that time. Keep dressing intact. Post op shoe when up to the bathroom. Elevate right LE at all times to heart level.
[2016-10-22] MEDS: diphenhydrAMINE 25 MG Tab PO PRN (21:39)
[2016-10-22] MEDS: Simvastatin 10 MG Tab PO SCH (21:40)
[2016-10-22] MEDS: Amoxicillin/Clavulanate K 875-125 MG Tab PO SCH (21:40)
[2016-10-22] MEDS: Insulin Detemir 100 Units/ML 3 ML Pen SUBCUT SCH (21:41)
[2016-10-23] MEDS: Zolpidem 5 MG Tab PO SCH (00:17)
[2016-10-23] MEDS: Acetaminophen 325 MG Tab PO PRN (00:17)
[2016-10-23] MEDS: Heparin Sodium 5,000 Units/ML Vial SUBCUT SCH ×2 (05:31→14:11)
--- NOTE | 2016-10-23 06:55 | PN ---
DATE: 10/21/2016 SUBJECTIVE: The patient is still complaining of right foot pain, but overall, he has been doing well. He denies any chest pain, shortness of breath, fever, chills, abdominal pain, nausea, or vomiting. OBJECTIVE: Vital Signs: Blood pressure is 154/83, pulse of 71, respirations 20, and temperature of 97.6. Heart: Regular rate and rhythm. Normal S1 and S2. No gallops. No rubs. Lungs: Equal bilaterally. No crackles. No wheezing. Abdomen: Obese, soft, and nontender. Extremities: Remarkable for the dressing on the right foot. MEDICATIONS: Reviewed. PLAN: We will continue with his present management and we will continue with IV antibiotic Zosyn. [facility] /[id number]
--- NOTE | 2016-10-23 06:55 | PN ---
DATE: 10/22/2016 SUBJECTIVE: The patient's wound culture came back positive Streptococcus agalactiae and Staphylococcus aureus. Zosyn was not tested for susceptibility, but both are susceptible to Levaquin. The patient still complains of pain on the right foot, but the patient denies any chest pain, shortness of breath, abdominal pain, fever, chills, or any other complaints. OBJECTIVE: Vital Signs: Blood pressure is 152/80, pulse 70, respirations of 18, and temperature of 98.8. Heart: Regular rate and rhythm. Normal S1 and S2. No gallops. No rubs. Lungs: Diminished breath sounds on both bases with mild expiratory wheeze. No crackles. Breath sounds equal. Abdomen: Moderately obese, soft, and nontender. Bowel sounds positive. Extremities: Remarkable for the dressing on the right foot. LABORATORY DATA: Lab workup this morning, CBC; WBC 11.3, hemoglobin is 11.8, hematocrit 36.1, and platelet is 166. MEDICATIONS: Reviewed. PLAN: We will discontinue Zosyn. We will switch this to IV Levaquin basing on the wound culture and sensitivity and we will continue the rest his medication. We will also increase patient's metoprolol to 100 mg daily and continue with losartan as his blood pressure is running [id number] elevated. [facility] /[id number]
[2016-10-23] MEDS: diphenhydrAMINE 25 MG Tab PO PRN ×2 (07:49→12:11)
[2016-10-23] MEDS: Insulin Aspart 100 Units/ML 3 ML Pen SUBCUT SCH ×2 (08:21→11:16)
[2016-10-23] MEDS: Furosemide 20 MG Tab PO SCH (08:38)
[2016-10-23] MEDS: Metoprolol Succinate 50 MG Tab.ER PO SCH (08:38)
[2016-10-23] MEDS: Pregabalin 50 MG Cap PO SCH ×2 (08:38→14:11)
[2016-10-23] MEDS: Aspirin 81 MG Tab.EC PO SCH (08:38)
[2016-10-23] MEDS: Sertraline 50 MG Tab PO SCH (08:39)
[2016-10-23] MEDS: Isosorbide Mononitrate 30 MG Tab.ER PO SCH (08:39)
[2016-10-23] MEDS: Losartan 50 MG Tab PO SCH (08:40)
[2016-10-23] MEDS: metFORMIN 500 MG Tab PO SCH (08:40)
[2016-10-23] MEDS: Amoxicillin/Clavulanate K 875-125 MG Tab PO SCH (08:40)
[2016-10-23] MEDS: buPROPion 150 MG Tab.ER PO SCH (08:40)
[2016-10-23] MEDS: glipiZIDE 5 MG Tab.ER PO SCH (08:40)
[2016-10-23] MEDS: Acetaminophen/HYDROcodone 325-5 MG Tab PO PRN (08:42)
[2016-10-23] MEDS: FLUTICASONE INH SCH (08:43)
[2016-10-23] MEDS: SITAGLIPTIN 100 MG PO SCH (08:43)
[2016-10-23] MEDS: SALMETEROL INH SCH (08:43)
[2016-10-23] MEDS: Omeprazole 20 MG Cap.CR PO SCH (09:42)
--- NOTE | 2016-10-23 11:02 | PCM.CONSN ---
- General Info Date of Service: 10/23/16 Admission Dx/Problem (Free Text): sepsis with right foot infection Subjective Update: Pt is POD5 s/p right foot 3rd digit amputation with debridement and wash out. Pt states he is doing well today except for having some nausea this morning where, feeling somewhat better now and was given something for that nausea. no new complaints to the foot. States pain is controlled, has some sharp nerve type pain to the right foot today. Has been able to ambulate to the bathroom without any issues. Denies f/c/calf pain. Functional Status: Reports: pain controlled - Review of Systems General: Reports: No Symptoms - Patient Data Vitals - most recent: Last Vital Signs Temp 36.3 C 10/23/16 07:46 Pulse 82 10/23/16 08:38 Resp 20 10/23/16 07:46 BP 128/79 10/23/16 08:40 Pulse Ox 97 10/23/16 07:46 Weight - most recent: 93.259 kg I&O - last 24 hours: Intake & Output 10/22/16 10/23/16 10/23/16 22:59 06:59 14:59 Intake Total 700 150 120 Output Total 1000 1000 Balance -300 -850 120 Lab Results last 24 hrs: Laboratory Results - last 24 hr 10/22/16 10/22/16 10/22/16 Range/Units 11:54 17:01 20:58 WBC (5.0-10.0) 10^3/uL RBC (4.6-6.2) 10^6/uL Hgb (14.0-18.0) g/dL Hct (40.0-54.0) % MCV (80-100) fL MCH (27.0-34.0) pg MCHC (33.0-35.0) g/dL Plt Count (150-450) 10^3/uL Neut % (Auto) (42.2-75.2) % Lymph % (Auto) (20.5-50.1) % Millard % (Auto) (2-8) % Eos % (Auto) (1.0-3.0) % Baso % (Auto) (0.0-1.0) % ESR (0-15) mm/hr POC Glucose 91 99 166 H (70-105) mg/dl 10/23/16 10/23/16 10/23/16 Range/Units 06:40 06:40 07:39 WBC 12.8 H (5.0-10.0) 10^3/uL RBC 4.14 L (4.6-6.2) 10^6/uL Hgb 13.0 L (14.0-18.0) g/dL Hct 40.2 (40.0-54.0) % MCV 97.1 (80-100) fL MCH 31.4 (27.0-34.0) pg MCHC 32.3 L (33.0-35.0) g/dL Plt Count 198 (150-450) 10^3/uL Neut % (Auto) 76.1 H (42.2-75.2) % Lymph % (Auto) 17.0 L (20.5-50.1) % Millard % (Auto) 5.5 (2-8) % Eos % (Auto) 1.1 (1.0-3.0) % Baso % (Auto) 0.3 (0.0-1.0) % ESR > 100 H (0-15) mm/hr POC Glucose 118 H (70-105) mg/dl Med Orders - Current: Current Medications Acetaminophen (Tylenol) 650 mg PO Q4H PRN PRN Reason: Pain (Mild 1-3)/fever Last Admin: 10/23/16 00:17 Dose: 650 mg Hydrocodone Bitart/Acetaminophen ([place] 325-5 Mg) 1 tab PO Q4H PRN PRN Reason: Pain (moderate 4-6) Last Admin: 10/23/16 08:42 Dose: 1 tab Albuterol (Proventil Hfa) 0 gm INH Q6HR PRN PRN Reason: Shortness of Breath Last Admin: 10/18/16 12:47 Dose: 1 puff Albuterol/Ipratropium (Duoneb 3.0-0.5 Mg/3 Ml) 3 ml NEB Q6HRRT PRN PRN Reason: Shortness of Breath Amoxicillin/Clavulanate Potassium (Augmentin 875 Mg/125 Mg) 1 tab PO Q12HR [facility] Last Admin: 10/23/16 08:40 Dose: 1 tab Aspirin (Halfprin) 81 mg PO DAILY [facility] Last Admin: 10/23/16 08:38 Dose: 81 mg Bupropion HCl (Wellbutrin Xl) 150 mg PO DAILY [facility] Last Admin: 10/23/16 08:40 Dose: 150 mg Diphenhydramine HCl (Benadryl) 25 mg PO QID PRN PRN Reason: Itching Last Admin: 10/23/16 07:49 Dose: 25 mg Docusate Sodium (Colace) 100 mg PO BID PRN PRN Reason: Constipation Furosemide (Lasix) 20 mg PO DAILY [facility] Last Admin: 10/23/16 08:38 Dose: 20 mg Glipizide (Glucotrol Xl) 5 mg PO BID [facility] Last Admin: 10/23/16 08:40 Dose: 5 mg Heparin Sodium (Porcine) (Heparin Sodium) 5,000 units SUBCUT Q8HR [facility] Last Admin: 10/23/16 05:31 Dose: 5,000 units Insulin Aspart (Novolog) 0 unit SUBCUT QIDACANDBED [facility] PRN Reason: Protocol Last Admin: 10/23/16 08:21 Dose: Not Given Insulin Detemir (Levemir) 17 unit SUBCUT BEDTIME [facility] Last Admin: 10/22/16 21:41 Dose: 17 units Isosorbide Mononitrate (Imdur) 30 mg PO DAILY [facility] Last Admin: 10/23/16 08:39 Dose: 30 mg Losartan Potassium (Cozaar) 100 mg PO DAILY [facility] Last Admin: 10/23/16 08:40 Dose: 100 mg Metformin HCl (Glucophage) 1,000 mg PO BID [facility] Last Admin: 10/23/16 08:40 Dose: 1,000 mg Metoprolol Succinate (Toprol Xl) 100 mg PO DAILY [facility] Last Admin: 10/23/16 08:38 Dose: 100 mg Nicotine (Habitrol) 21 mg TRDERM DAILY PRN PRN Reason: Nicotine withdrawal Omeprazole (Omeprazole) 20 mg PO BID [facility] Last Admin: 10/23/16 09:42 Dose: 20 mg Ondansetron HCl (Zofran) 4 mg IVPUSH Q6H PRN PRN Reason: Nausea/Vomiting Last Admin: 10/23/16 08:49 Dose: 4 mg Sitagliptin [Januvia ] 100mgPt's Own Med 0 each PO DAILY [facility] Last Admin: 10/23/16 08:43 Dose: 1 each Fluticasone/Salmeterol [Advair 250-50] Pt's Own Med 0 each INH DAILY [facility] Last Admin: 10/23/16 08:43 Dose: 1 each Polyethylene Glycol (Miralax) 17 gm PO DAILY PRN PRN Reason: Constipation Pregabalin (Lyrica) 200 mg PO TID [facility] Last Admin: 10/23/16 08:38 Dose: 200 mg Sertraline HCl (Zoloft) 100 mg PO BID [facility] Last Admin: 10/23/16 08:39 Dose: 100 mg Simvastatin (Zocor) 10 mg PO BEDTIME [facility] Last Admin: 10/22/16 21:40 Dose: 10 mg Sodium Chloride (Saline Flush) 10 ml FLUSH ASDIRECTED PRN PRN Reason: Keep Vein Open Last Admin: 10/22/16 09:26 Dose: 10 ml Zolpidem Tartrate (Ambien) 10 mg PO BEDTIME [facility] Last Admin: 10/23/16 00:17 Dose: 10 mg Discontinued Medications Hydrocodone Bitart/Acetaminophen ([place] 325-10 Mg) 0.5 tab PO Q4H PRN PRN Reason: Pain (moderate 4-6) Last Admin: 10/20/16 04:42 Dose: 0.5 tab Albuterol/Ipratropium (Duoneb 3.0-0.5 Mg/3 Ml) 3 ml NEB Q6HRRT [facility] Last Admin: 10/21/16 07:37 Dose: 3 ml Bupivacaine HCl (Sensorcaine-Mpf 0.5%) Confirm Administered Dose 20 ml .ROUTE .STK-MED ONE Stop: 10/18/16 05:55 Bupivacaine HCl (Sensorcaine-Mpf 0.5%) 5 ml INJECT .STK-MED ONE Stop: 10/18/16 07:21 Last Admin: 10/18/16 07:20 Dose: 5 ml Bupivacaine HCl (Sensorcaine-Mpf 0.5%) 3 ml INJECT .STK-MED ONE Stop: 10/18/16 07:37 Last Admin: 10/18/16 07:36 Dose: 3 ml Bupivacaine HCl (Sensorcaine-Mpf 0.5%) 2 ml INJECT .STK-MED ONE Stop: 10/18/16 08:03 Last Admin: 10/18/16 08:02 Dose: 2 ml Bupivacaine HCl (Sensorcaine-Mpf 0.5%) 10 ml INJECT .STK-MED ONE Stop: 10/18/16 17:12 Diphenhydramine HCl (Benadryl) 25 mg IVPUSH ONETIME ONE Stop: 10/22/16 12:42 Last Admin: 10/22/16 12:52 Dose: 25 mg Doxycycline Hyclate (Vibramycin) 100 mg PO BID [facility] Last Admin: 10/22/16 13:50 Dose: 100 mg Ephedrine Sulfate (Ephedrine Sulfate) Confirm Administered Dose 50 mg .ROUTE .STK-MED ONE Stop: 10/18/16 06:34 Famotidine (Pepcid) Confirm Administered Dose 20 mg .ROUTE .STK-MED ONE Stop: 10/18/16 06:33 Famotidine (Pepcid) 20 mg IV .STK-MED ONE Stop: 10/18/16 14:11 Fentanyl (Sublimaze) Confirm Administered Dose 100 mcg .ROUTE .STK-MED ONE Stop: 10/18/16 06:32 Fentanyl (Sublimaze) 100 mcg IV .STK-MED ONE Stop: 10/18/16 14:11 Gentamicin Sulfate (Gentamicin) Confirm Administered Dose 80 mg .ROUTE .STK-MED ONE Stop: 10/18/16 06:35 Gentamicin Sulfate (Gentamicin) 80 mg .XX .STK-MED ONE Stop: 10/18/16 07:38 Last Admin: 10/18/16 07:37 Dose: 80 mg Gentamicin Sulfate (Gentamicin) Confirm Administered Dose 80 mg .ROUTE .STK-MED ONE Stop: 10/18/16 07:42 Gentamicin Sulfate (Gentamicin) 80 mg .XX .STK-MED ONE Stop: 10/18/16 07:47 Last Admin: 10/18/16 07:46 Dose: 80 mg Heparin Sodium (Porcine) (Heparin Sodium) 5,000 units SUBCUT Q8HR [facility] Last Admin: 10/19/16 05:37 Dose: 5,000 units Piperacillin Sod/Tazobactam (Sod 3.375 gm/ Sodium Chloride) 100 mls @ 200 mls/ hr IV ONETIME ONE Stop: 10/17/16 18:11 Last Admin: 10/17/16 18:02 Dose: 200 mls/hr Piperacillin Sod/Tazobactam (Sod 3.375 gm/ Sodium Chloride) 100 mls @ 200 mls/ hr IV Q6H [facility] Last Admin: 10/22/16 06:16 Dose: 200 mls/hr Sodium Chloride (Normal Saline) 1,000 mls @ 999 mls/hr IV ASDIRECTED [facility] Stop: 10/19/16 21:01 Last Admin: 10/17/16 22:32 Dose: 999 mls/hr Magnesium Sulfate 2 gm/ Premix 50 mls @ 25 mls/hr IV ONETIME ONE Stop: 10/18/16 09:59 Last Admin: 10/18/16 09:25 Dose: 25 mls/hr Levofloxacin/Dextrose 500 mg/ (Premix) 100 mls @ 100 mls/hr IV Q24H [facility] Last Infusion: 10/22/16 10:15 Dose: 50 mls/hr Isosorbide Mononitrate (Imdur) Confirm Administered Dose 30 mg .ROUTE .STK-MED ONE Stop: 10/18/16 06:24 Last Admin: 10/18/16 06:33 Dose: Not Given Lidocaine HCl (Xylocaine-Mpf 1%) Confirm Administered Dose 30 ml .ROUTE .STK- MED ONE Stop: 10/18/16 05:55 Lidocaine HCl (Xylocaine 2%) Confirm Administered Dose 20 ml .ROUTE .STK-MED ONE Stop: 10/18/16 06:34 Lidocaine HCl (Xylocaine-Mpf 1%) 5 ml INJECT .STK-MED ONE Stop: 10/18/16 07:21 Last Admin: 10/18/16 07:20 Dose: 5 ml Lidocaine HCl (Xylocaine-Mpf 1%) 3 ml INJECT .STK-MED ONE Stop: 10/18/16 07:37 Last Admin: 10/18/16 07:36 Dose: 3 ml Lidocaine HCl (Xylocaine-Mpf 1%) 2 ml INJECT .STK-MED ONE Stop: 10/18/16 08:03 Last Admin: 10/18/16 08:02 Dose: 2 ml Lidocaine HCl (Xylocaine-Mpf 1%) 30 ml INJECT .STK-MED ONE Stop: 10/18/16 17:12 Metoprolol Succinate (Toprol Xl) 50 mg PO DAILY [facility] Last Admin: 10/21/16 10:25 Dose: 50 mg Metoprolol Succinate (Toprol Xl) Confirm Administered Dose 50 mg .ROUTE .STK- MED ONE Stop: 10/18/16 06:17 Last Admin: 10/18/16 06:27 Dose: 50 mg Midazolam HCl (Versed 1 Mg/Ml) Confirm Administered Dose 4 mg .ROUTE .STK-MED ONE Stop: 10/18/16 06:32 Midazolam HCl (Versed 1 Mg/Ml) 4 mg IV .STK-MED ONE Stop: 10/18/16 14:11 Mometasone Furoate/Formoterol Fumar (Dulera 200-5 Mcg) 0 puff IH DAILY [facility] Last Admin: 10/18/16 12:52 Dose: Not Given Morphine Sulfate (Morphine) 2 mg IVPUSH Q2H PRN PRN Reason: Pain (severe 7-10) Last Admin: 10/20/16 10:18 Dose: 2 mg Docusate Sodium [ (Colace] 50mg) 50 mg PO BID PRN PRN Reason: Constipation Ondansetron HCl (Zofran) Confirm Administered Dose 4 mg .ROUTE .STK-MED ONE Stop: 10/18/16 06:32 Ondansetron HCl (Zofran) 4 mg IV .STK-MED ONE Stop: 10/18/16 14:11 Fluticasone/Salmeterol [Advair 250-50] Pt's Own Med 0 each INH BID [facility] Phenylephrine HCl (Agustin-Synephrine) Confirm Administered Dose 10 mg .ROUTE .STK- MED ONE Stop: 10/18/16 06:34 Propofol (Diprivan 20 Ml) Confirm Administered Dose 600 mg .ROUTE .STK-MED ONE Stop: 10/18/16 06:32 Propofol (Diprivan 20 Ml) 80 mg IV .STK-MED ONE Stop: 10/18/16 14:11 Succinylcholine Chloride (Quelicin) Confirm Administered Dose 200 mg .ROUTE .STK -MED ONE Stop: 10/18/16 06:34 Zolpidem Tartrate (Ambien) 5 mg PO BEDTIME PRN PRN Reason: Sleep - Exam General: alert, oriented, no acute distress Physical Findings Comments:: Right LE with dressing intact, very little clear/bloody drainage to dressing. Upon dressing removal all his erythema has resolved at this point. There is an open area to the amputation site that does not have any expressible drainage, no pain with palpation to right foot or amputation site. Sutures intact. No calf pain. Consult PN Assessment/Plan POD#: 5 Procedures: Procedures ANESTH LOWER LEG BONE SURG (05/31/16) ASSAY OF CK (CPK) (05/03/16) COMPLETE CBC W/AUTO DIFF WBC (06/11/16) COMPREHEN METABOLIC PANEL (06/11/16) CT HEAD/BRAIN W/O DYE (05/03/16) CT NECK SPINE W/O DYE (05/03/16) CULTR BACTERIA EXCEPT BLOOD (05/31/16) CULTURE AEROBIC IDENTIFY (05/31/16) CULTURE OTHR SPECIMN AEROBIC (05/31/16) EMERGENCY DEPT VISIT (06/11/16) EMERGENCY DEPT VISIT (05/03/16) EMERGENCY DEPT VISIT (05/03/16) EMERGENCY DEPT VISIT (04/04/15) GLUCOSE BLOOD TEST (06/11/16) HYDRATE IV INFUSION ADD-ON (06/11/16) HYDRATION IV INFUSION INIT (06/11/16) MICROBE SUSCEPTIBLE BRYON (05/31/16) MRI JNT OF LWR EXTRE W/O DYE (05/21/14) PARTIAL AMPUTATION OF TOE (05/31/16) PROTHROMBIN TIME (05/03/16) ROUTINE VENIPUNCTURE (06/11/16) TDAP VACCINE 7 YRS/> IM (05/03/16) THER/PROPH/DIAG INJ SC/IM (05/03/16) X-RAY EXAM OF HAND (05/03/16) (1) Status post amputation of lesser toe of right foot SNOMED Code(s): 435462720, 406745703 Code(s): Z89.421 - ACQUIRED ABSENCE OF OTHER RIGHT TOE(S) Current Visit: Yes (2) Type 2 diabetes mellitus with right diabetic foot infection SNOMED Code(s): 24737694 Code(s): E11.69 - TYPE 2 DIABETES MELLITUS WITH OTHER SPECIFIED COMPLICATION ; L08.9 - LOCAL INFECTION OF THE SKIN AND SUBCUTANEOUS TISSUE, UNSP Priority: Medium Current Visit: No Onset Date: 01/29/15 Problem List Initiated/Reviewed/Updated: Yes Plan: Dressing changed today, amputation site looks good again and improving with no remaining erythema and no expressible drainage. White count 12.8 today, he was transitioned to oral antibioitcs yesterday as he had a reaction to the IV levo. I did do an irrigation of the foot at bedside again today with NS. No purulence was able to be expressed during that procedure and it looks clean today. I then did pack the area with iodoform packing. Plan is for home health do do daily dressing changes with iodoform packing, gauze, cling and coban. He is cleared to d/c from my standpoint today. Continue the po augmentin BID x 10 days. I will see him on SundayOctober 30 at 11:40, have him come early to that appointment for blood work first and I will track the CBC and ESR. Post op shoe whenever up and ambulating. Elevate right LE at all times to heart level. He is instructed to call me if any problems arise before Sunday appointment.
[2016-10-23 11:25] VITALS: BP 110/59
--- NOTE | 2016-11-16 00:44 | DISCH ---
DISCHARGE DIAGNOSES: 1. Osteomyelitis of 3rd toe, right foot. 2. 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 3. Type 2 diabetes. 4. Previous amputations of the right 1st and 2nd toes of the right foot. 5. Ongoing tobacco habituation. 6. Chronic obstructive pulmonary disease/asthma. 7. Peripheral neuropathy. BRIEF HISTORY OF PRESENT ILLNESS: Mr. Orellana is a 50-year-old gentleman, who presented to the emergency room with an infection of the right foot. He stated that 3 to 4 days prior to admission, the foot had become red and swollen with the infection having started in the 3rd toe. By the time he presented to the emergency room, the toe had become black with purulent drainage. X-rays taken of the toe showed pronounced soft tissue swelling with bony dissolution at the distal phalanx. Findings were consistent with a probable osteomyelitis of the toe. He was admitted for further management. Pertinent labs and x-rays, CBC [place] time [place] [id number] with a left shift. White count on the day of discharge was 12,800. Hemoglobin and hematocrit at discharge were 13 and 40.2. Platelets were normal. Baseline sedimentation rate was obtained on the day of discharge and was more than 100 mm/hour. CRP done at time of admission was greater than 20.0 mg/dL and was 17.5 mg/dL prior to discharge. Chemistries showed normal electrolytes. BUN and creatinine on admission were 19 and 1.2 with a GFR of more than 60 and were 14 and 1.1 with a GFR of more than 60 at time of discharge. Lactic acid was elevated at 2.3 on admission and had normalized to 1.2 following surgery and IV antibiotics. LFTs were unremarkable. His blood sugars were monitored throughout the admission and were quite variable. For the most part, they were under 200 with occasional sugars above 200. Microbiology: Two sets of blood cultures showed no growth after 5 days. Intraoperative cultures: Two intraoperative cultures were taken at the operative site and grew Staph aureus (MSSA) and Streptococcus agalactiae. IMAGING STUDIES: X-ray of the right foot as above showing dissolution of the distal phalanx of the right toe indicating probable osteomyelitis. A 2-view chest x-ray showed no acute cardiopulmonary disease. HOSPITAL COURSE: Mr. Orellana was admitted as an acute inpatient. Consultation was requested from Dr. Ali Holland. His usual medications were continued. In the ER, he was given Zosyn 3.375 g. He was then continued on 3.375 g every 6 hours. Subcutaneous heparin was used for VTE prophylaxis. Initially, IV morphine was used for pain management. NovoLog sliding scale was added for blood sugar management. Nebulizer treatments were continued for his COPD. He was taken to the operating room on November 17 and underwent amputation of the 3rd right toe down to the level of the metatarsal head. Devitalized tissue was debrided. The wound was thoroughly rinsed with gentamicin-containing solution. Mr. Orellana was followed by Dr. Monte during the admission. Daily dressing changes were done. She was satisfied with progress of the wound, and on the day of discharge once again, inspected and irrigated it with sterile normal saline and packed the toe. He was ready to be discharged to home and will follow up as an outpatient for daily dressing changes. DISCHARGE MEDICATIONS: 1. Metformin 1000 mg b.i.d. 2. Glipizide 5 mg twice a day. 3. Bupropion 150 mg daily. 4. Zolpidem 10 mg bedtime. 5. Januvia 100 mg daily. 6. Simvastatin 10 mg at bedtime. 7. Sertraline 100 mg twice a day. 8. Lyrica 200 mg t.i.d. 9. Omeprazole 20 mg b.i.d. 10.Naproxen 500 mg b.i.d. 11.Metoprolol succinate 50 mg daily. 12.Losartan 100 mg daily. 13.Isosorbide mononitrate 30 mg daily. 14.Lantus insulin 17 units at bedtime. 15.Hydrocodone 5/325, 1 tablet every 6 hours p.r.n. 16.Furosemide 20 mg daily. 17.Advair 250-50, 1 puff daily. 18.Colace 50 mg b.i.d. p.r.n. 19.Aspirin EC 81 mg daily. 20.Albuterol inhaler 1 puff every 6 hours p.r.n. 21.Tylenol 650 every 4 hours p.r.n. 22.He will continue on Augmentin 875/125 mg 1 tablet twice a day for the next 10 days. He will return to the hospital on an outpatient basis for daily wound packing. Wound will be irrigated and then packed with quarter-inch iodoform and then covered in dressing. He will see Dr. Bradford Holland in followup at the clinic on October 30, 2016 at 11:[address] Holland will order labs to be done prior to that visit. Mr. Orellana was also seen and evaluated by Physical and Occupational Therapy during the visit. They both felt that he did not require any further services as his gait was safe. As he pointed out himself, he has been walking without his 1st and 2nd right toes for several years and he feels that losing the 3rd toe will not really change his gait. He does wear diabetic shoes. He will follow up with Dr. Holland as above. If there are any issues or concerns prior to that, he can return for earlier evaluation. He will also be seeing the nursing staff on a daily basis for dressing changes and they will alert Dr. Holland to any issues. CONDITION AT THE TIME OF DISCHARGE: Much improved and stable. CODE STATUS DURING THIS ADMISSION: Full code. [facility] /[id number] MTDD
== END 2016-10-23 15:38 | disposition home or self-care (01) | DRG 854 ==
LOC: DL.ED 15:38 → UNDOADMIN 18:09 → DL.MS 18:09
PROVIDERS: ADMIT Family Medicine; ATTEND Family Medicine
PROC: 0Y6T0Z0 Detachment at Right 3rd Toe, Complete, Open Approach (ICD-10-PCS; principal; 2016-10-18)
DX: M86.9 Osteomyelitis, unspecified (principal); A41.9 Sepsis, unspecified organism; M86.171 Other acute osteomyelitis, right ankle and foot; B95.61 Methicillin susceptible Staphylococcus aureus infection as the cause of diseases classified elsewhere; B95.1 Streptococcus, group B, as the cause of diseases classified elsewhere; E11.69 Type 2 diabetes mellitus with other specified complication; E11.21 Type 2 diabetes mellitus with diabetic nephropathy; E11.40 Type 2 diabetes mellitus with diabetic neuropathy, unspecified; J44.9 Chronic obstructive pulmonary disease, unspecified; D69.6 Thrombocytopenia, unspecified; Z68.35 Body mass index [BMI] 35.0-35.9, adult; Z89.421 Acquired absence of other right toe(s); E66.9 Obesity, unspecified; I10 Essential (primary) hypertension; E78.00 Pure hypercholesterolemia, unspecified; F32.9 Major depressive disorder, single episode, unspecified; F17.200 Nicotine dependence, unspecified, uncomplicated; F10.10 Alcohol abuse, uncomplicated; F12.10 Cannabis abuse, uncomplicated; Z88.8 Allergy status to other drugs, medicaments and biological substances; Z79.899 Other long term (current) drug therapy; Z79.4 Long term (current) use of insulin; Z79.82 Long term (current) use of aspirin
CPT/HCPCS: 36415; 73620; 80053; 83605; 85025; 86140; 87040 ×2; 99284; 99285; J2543; J7050; 01464; 71020; 80048; 82962; 83735; 84100; 85651; 87070; 87075; 87077; 87186; 88305; 94640; 97161-GP; 97165-GO; A9270-GY; J1200; J1580; J1644; J1815-GY; J1956; J2250; J2270; J2405; J2704; J3010; J3475; J7030; S0028

== ENCOUNTER 2019-02-25 12:52 | Emergency (ER) | payer MEDICAID, MEDICARE ==
[~2019-02-25 12:52] MED LIST: Lactated Ringers 1,000 ML IV SCH
--- NOTE | 2019-02-25 12:52 | EDM.PDOC ---
ED HPI GENERAL MEDICAL PROBLEM - General Stated Complaint: AMBULANCE Time Seen by Provider: 02/25/19 12:35 Source of Information: Reports: EMS History Limitations: Reports: Altered Mental Status, Uncooperative - History of Present Illness INITIAL COMMENTS - FREE TEXT/NARRATIVE: This 53 yo male patient was brought to the ED by [facility] with altered mentation. EMS was called to the patient's residence due to the patient having a low blood sugar. EMS reports they had been called to this patient's home 2 days ago due to low blood sugar levels. EMS reports during the previous call the patient was treated for his low blood sugar levels. After treatment, the patient refused transport. Today, EMS initiated treatment by giving the patient an amp of D50 due to a blood sugar of 34. When the patient did not respond normally, EMS gave the patient Narcan. The patient then became slightly combative and was given a second amp of D50. The patient continued to be combative throughout transport. EMS did notice a bottle of hydrocodone (51 remaining out of 168 filled in late December) and alcohol bottles within his room. Upon arrival in the ED, the patient responded to pain initially, but would not cooperate with examination. The patient has numerous wounds on his extremities. The patient has purulent drainage from a wound on his right anterior baum. The patient has a small amount of drainage from an ulceration to his right foot. The patient has numerous healing wounds to his left lower extremity. The patient has several healing wounds to his right hand. The patient has purulent drainage from his left distal 2nd finger. During secondary assessment, the patient did open his eyes to command. The patient would not answer questions, but did repeat several curse words. The patient was found in his room by his roommates, but the patient 's roommates report that they do not speak with the patient often. Onset: Today Duration: Constant Location: Reports: Generalized Quality: Reports: Other Severity: Severe Improves with: Reports: Medication (D50, IV fluids and Narcan (given by EMS)) Worsens with: Reports: None Context: Reports: Other Associated Symptoms: Reports: Other - Related Data Allergies Allergy/AdvReac Type Severity Reaction Status Date / Time levofloxacin [From Levaquin] Allergy Rash Verified 10/22/16 11:52 vancomycin Allergy Hives Verified 10/17/16 18:28 Home Meds: Home Meds Albuterol [Proair HFA] 1 puff INH Q6HR PRN 01/29/15 [History] Aspirin [Halfprin] 81 mg PO DAILY 01/29/15 [History] Docusate Sodium [Colace] 50 mg PO BID PRN 01/29/15 [History] Fluticasone/Salmeterol [Advair 250-50] 1 puff INH DAILY 01/29/15 [History] Furosemide [Lasix] 20 mg PO DAILY 01/29/15 [History] Insulin Glarg,Human.Rec.Analog [LantUS Solostar] 17 units SQ BEDTIME 01/29/15 [ History] Isosorbide Mononitrate [Isosorbide Mononitrate ER] 30 mg PO DAILY 01/29/15 [ History] Losartan [Cozaar] 100 mg PO DAILY 01/29/15 [History] Metoprolol Succinate [Toprol XL] 50 mg PO DAILY 01/29/15 [History] Omeprazole 20 mg PO BID 01/29/15 [History] Pregabalin [Lyrica] 200 mg PO TID 01/29/15 [History] Sertraline HCl 100 mg PO BID 01/29/15 [History] Simvastatin 10 mg PO BEDTIME 01/29/15 [History] SitaGLIPtin [Januvia] 100 mg PO DAILY 01/29/15 [History] buPROPion [Wellbutrin XL] 150 mg PO DAILY 01/29/15 [History] glipiZIDE [Glucotrol XL] 5 mg PO BID 01/29/15 [History] metFORMIN [Glucophage] 1,000 mg PO BID 01/29/15 [History] Acetaminophen [Tylenol] 650 mg PO Q4H PRN #0 tablet 02/08/15 [Rx] Zolpidem [Ambien] 10 mg PO BEDTIME 04/04/15 [History] Naproxen [Naprosyn] 500 mg PO BID 05/30/16 [History] Amoxicillin/Clavulanate K [Augmentin 875 MG/125 MG] 1 tab PO Q12HR #20 tablet [Rx] Hydrocodone/Acetaminophen [Hydrocodon-Acetaminophen 5-325] 1 each PO 6XDAY PRN 02/25/19 [History] Rosuvastatin Calcium 20 mg PO DAILY 02/25/19 [History] Past Medical History HEENT History: Reports: Impaired Vision, Other (See Below) Other HEENT History: WEARS CORRECTIVE LENS Cardiovascular History: Reports: High Cholesterol, Hypertension Respiratory History: Reports: Asthma, COPD, Other (See Below) Other Respiratory History: HX OF TOBACCO ABUSE Gastrointestinal History: Reports: Chronic Constipation, GERD Other Gastrointestinal History: esophageal varices Genitourinary History: Reports: None Musculoskeletal History: Reports: Arthritis, Back Pain, Chronic, Fracture Other Musculoskeletal History: osteomyletis Neurological History: Reports: Neuropathy, Diabetic Psychiatric History: Reports: Depression, Other (See Below) Other Psychiatric History: TOBACCO ABUSE Endocrine/Metabolic History: Reports: Diabetes, Type II Other Endocrine/Metabolic History: diabetic nephropathy Hematologic History: Reports: None Immunologic History: Reports: None Oncologic (Cancer) History: Reports: None Dermatologic History: Reports: Cellulitis Other Dermatologic History: open areas to R) ft - Infectious Disease History Infectious Disease History: Reports: Chicken Pox - Past Surgical History Head Surgeries/Procedures: Reports: None GI Surgical History: Reports: Colonoscopy, Hernia Repair/Other Musculoskeletal Surgical History: Reports: Amputation, Other (See Below) Social & Family History - Family History Family Medical History: Noncontributory - Caffeine Use Caffeine Use: Reports: None ED ROS GENERAL - Review of Systems Review Of Systems: ROS reveals no pertinent complaints other than HPI. ED EXAM, GENERAL - Physical Exam Exam: See Below Exam Limited By: Uncooperative General Appearance: Alert, Moderate Distress, Obese Eye Exam: Bilateral Eye: EOMI, Other (Pupils were constricted throughout examination) Ears: Normal External Exam, Normal Canal, Hearing Grossly Normal, Normal TMs Nose: Normal Inspection, Normal Mucosa, No Blood Throat/Mouth: Normal Inspection, Normal Lips Head: Atraumatic, Normocephalic Neck: Normal Inspection, Supple, Non-Tender, Full Range of Motion Respiratory/Chest: No Respiratory Distress, Lungs Clear, Normal Breath Sounds, Chest Non-Tender, Decreased Breath Sounds Cardiovascular: Normal Peripheral Pulses, Regular Rate, Rhythm, No Edema, No Gallop, No JVD, No Murmur, No Rub GI/Abdominal: Normal Bowel Sounds, Soft, No Organomegaly, No Distention, No Abnormal Bruit, No Mass, Pelvis Stable, Tender (generalized tenderness) (Male) Exam: Deferred Rectal (Males) Exam: Deferred Extremities: Other (numerous wounds in different stages of healing on his extremities) Neurological: Alert, Disoriented Skin Exam: Warm, Wound/Incision (Numerous wounds documented previously) Lymphatic: No Adenopathy Course - Vital Signs Last Recorded V/S: Last Vital Signs Temp 35.8 C 02/25/19 12:42 Pulse 86 02/25/19 12:42 Resp 16 02/25/19 12:42 BP 155/104 H 02/25/19 12:42 Pulse Ox 95 02/25/19 12:42 - Orders/Labs/Meds Orders: Active Orders 24 hr Category Date Time Status Blood Glucose Check, Bedside [RC] ONETIME Care 02/25/19 13:50 Active EKG Documentation Completion [RC] URGENT Care 02/25/19 12:39 Active Yin Catheter Insertion [Insert Urinary Catheter] [OM. Care 02/25/19 14:00 Ordered PC] Q24H RT Aerosol Therapy [RC] ASDIRECTED Care 02/25/19 14:21 Ordered Urinary Catheter Assessment [RC] ASDIRECTED Care 02/25/19 13:51 Active CULTURE BLOOD [BC] Stat Lab 02/25/19 13:10 Results Lactated Ringers [Ringers, Lactated] 1,000 ml Med 02/25/19 12:43 Active IV ASDIRECTED Medication Orders Lactated Ringer's (Ringers, Lactated) 1,000 mls @ 125 mls/hr IV ASDIRECTED CHARY Last Admin: 02/25/19 13:26 Dose: 125 mls/hr Labs: Laboratory Tests 02/25/19 02/25/19 02/25/19 Range/Units 13:08 13:08 13:10 WBC (5.0-10.0) 10^3/uL RBC (4.6-6.2) 10^6/uL Hgb (14.0-18.0) g/dL Hct (40.0-54.0) % MCV (80-100) fL MCH (27.0-34.0) pg MCHC (33.0-35.0) g/dL Plt Count (150-450) 10^3/uL Neut % (Auto) (42.2-75.2) % Lymph % (Auto) (20.5-50.1) % [place] % (Auto) (2-8) % Eos % (Auto) (1.0-3.0) % Baso % (Auto) (0.0-1.0) % Sodium (135-145) mmol/L Potassium (3.6-5.0) mmol/L Chloride (101-111) mmol/L Carbon Dioxide (21.0-31.0) mmol/L Anion Gap BUN (7-18) mg/dL Creatinine (0.6-1.3) mg/dL Est Cr Clr Drug Dosing mL/min Estimated GFR (MDRD) BUN/Creatinine Ratio Glucose (74-105) mg/dL POC Glucose (70-105) mg/dl Lactic Acid (0.5-2.2) mmol/L Calcium (8.4-10.2) mg/dl Magnesium 1.7 L (1.8-2.5) mg/dL Total Bilirubin (0.2-1.0) mg/dL AST (10-42) IU/L ALT (10-60) IU/L Alkaline Phosphatase (42-121) IU/L Troponin I (0.00-0.02) ng/ml Total Protein (6.7-8.2) g/dl Albumin (3.2-5.5) g/dl Globulin Albumin/Globulin Ratio Urine Color Yellow (YELLOW) Urine Appearance Slightly cloudy (CLEAR) Urine pH 5.0 (5.0-9.0) Ur Specific [place] 1.025 (1.005-1.030) Urine Protein 100 H (NEGATIVE) Urine Glucose (UA) Negative (NEGATIVE) Urine Ketones Negative (NEGATIVE) Urine Occult Blood Small H (NEGATIVE) Urine Nitrite Negative (NEGATIVE) Urine Bilirubin Negative (NEGATIVE) Urine Urobilinogen 0.2 (0.2-1.0) mg/dL Ur Leukocyte Esterase Negative (NEGATIVE) Urine RBC 0-5 /HPF Urine WBC 0-5 (0-5/HPF) /HPF Ur Epithelial Cells Rare (NOT SEEN) /HPF Amorphous Sediment Many (NOT SEEN) /HPF Urine Bacteria Rare (0-FEW/HPF) /HPF Urine Mucus Not seen (NOT SEEN) /LPF Salicylates < 4 mg/dL Urine Opiates Screen Positive H (NEGATIVE) Ur Oxycodone Screen Positive H (NEGATIVE) Urine Methadone Screen Negative (NEGATIVE) Acetaminophen < 10 ug/mL Ur Barbiturates Screen Negative (NEGATIVE) U Tricyclic Antidepress Negative (NEGATIVE) Ur Phencyclidine Scrn Negative (NEGATIVE) Ur Amphetamine Screen Negative (NEGATIVE) U Methamphetamines Scrn Negative (NEGATIVE) Urine MDMA Screen Negative (NEGATIVE) U Benzodiazepines Scrn Negative (NEGATIVE) Urine Cocaine Screen Negative (NEGATIVE) U Marijuana (THC) Screen Negative (NEGATIVE) Ethyl Alcohol < 5 mg/dL 02/25/19 02/25/19 02/25/19 Range/Units 13:10 13:10 13:10 WBC 10.9 H (5.0-10.0) 10^3/uL RBC 4.02 L (4.6-6.2) 10^6/uL Hgb 12.3 L (14.0-18.0) g/dL Hct 36.6 L (40.0-54.0) % MCV 91.0 D (80-100) fL MCH 30.6 (27.0-34.0) pg MCHC 33.6 (33.0-35.0) g/dL Plt Count 107 L D (150-450) 10^3/uL Neut % (Auto) 83.9 H (42.2-75.2) % Lymph % (Auto) 10.4 L (20.5-50.1) % [place] % (Auto) 5.4 (2-8) % Eos % (Auto) 0.0 L (1.0-3.0) % Baso % (Auto) 0.3 (0.0-1.0) % Sodium 135 (135-145) mmol/L Potassium 6.5 H D (3.6-5.0) mmol/L Chloride 99 L (101-111) mmol/L Carbon Dioxide 16.0 L D (21.0-31.0) mmol/L Anion Gap 26.5 BUN 83 H D (7-18) mg/dL Creatinine 8.6 H D (0.6-1.3) mg/dL Est Cr Clr Drug Dosing 9.82 mL/min Estimated GFR (MDRD) 7 BUN/Creatinine Ratio 9.65 Glucose 204 H (74-105) mg/dL POC Glucose (70-105) mg/dl Lactic Acid 1.6 (0.5-2.2) mmol/L Calcium 6.6 L D (8.4-10.2) mg/dl Magnesium (1.8-2.5) mg/dL Total Bilirubin 1.5 H (0.2-1.0) mg/dL AST 21 (10-42) IU/L ALT 10 (10-60) IU/L Alkaline Phosphatase 76 (42-121) IU/L Troponin I < 0.02 (0.00-0.02) ng/ml Total Protein 7.4 (6.7-8.2) g/dl Albumin 3.2 (3.2-5.5) g/dl Globulin 4.2 Albumin/Globulin Ratio 0.76 Urine Color (YELLOW) Urine Appearance (CLEAR) Urine pH (5.0-9.0) Ur Specific [place] (1.005-1.030) Urine Protein (NEGATIVE) Urine Glucose (UA) (NEGATIVE) Urine Ketones (NEGATIVE) Urine Occult Blood (NEGATIVE) Urine Nitrite (NEGATIVE) Urine Bilirubin (NEGATIVE) Urine Urobilinogen (0.2-1.0) mg/dL Ur Leukocyte Esterase (NEGATIVE) Urine RBC /HPF Urine WBC (0-5/HPF) /HPF Ur Epithelial Cells (NOT SEEN) /HPF Amorphous Sediment (NOT SEEN) /HPF Urine Bacteria (0-FEW/HPF) /HPF Urine Mucus (NOT SEEN) /LPF Salicylates mg/dL Urine Opiates Screen (NEGATIVE) Ur Oxycodone Screen (NEGATIVE) Urine Methadone Screen (NEGATIVE) Acetaminophen ug/mL Ur Barbiturates Screen (NEGATIVE) U Tricyclic Antidepress (NEGATIVE) Ur Phencyclidine Scrn (NEGATIVE) Ur Amphetamine Screen (NEGATIVE) U Methamphetamines Scrn (NEGATIVE) Urine MDMA Screen (NEGATIVE) U Benzodiazepines Scrn (NEGATIVE) Urine Cocaine Screen (NEGATIVE) U Marijuana (THC) Screen (NEGATIVE) Ethyl Alcohol mg/dL 02/25/19 Range/Units 14:17 WBC (5.0-10.0) 10^3/uL RBC (4.6-6.2) 10^6/uL Hgb (14.0-18.0) g/dL Hct (40.0-54.0) % MCV (80-100) fL MCH (27.0-34.0) pg MCHC (33.0-35.0) g/dL Plt Count (150-450) 10^3/uL Neut % (Auto) (42.2-75.2) % Lymph % (Auto) (20.5-50.1) % [place] % (Auto) (2-8) % Eos % (Auto) (1.0-3.0) % Baso % (Auto) (0.0-1.0) % Sodium (135-145) mmol/L Potassium (3.6-5.0) mmol/L Chloride (101-111) mmol/L Carbon Dioxide (21.0-31.0) mmol/L Anion Gap BUN (7-18) mg/dL Creatinine (0.6-1.3) mg/dL Est Cr Clr Drug Dosing mL/min Estimated GFR (MDRD) BUN/Creatinine Ratio Glucose (74-105) mg/dL POC Glucose 102 (70-105) mg/dl Lactic Acid (0.5-2.2) mmol/L Calcium (8.4-10.2) mg/dl Magnesium (1.8-2.5) mg/dL Total Bilirubin (0.2-1.0) mg/dL AST (10-42) IU/L ALT (10-60) IU/L Alkaline Phosphatase (42-121) IU/L Troponin I (0.00-0.02) ng/ml Total Protein (6.7-8.2) g/dl Albumin (3.2-5.5) g/dl Globulin Albumin/Globulin Ratio Urine Color (YELLOW) Urine Appearance (CLEAR) Urine pH (5.0-9.0) Ur Specific [place] (1.005-1.030) Urine Protein (NEGATIVE) Urine Glucose (UA) (NEGATIVE) Urine Ketones (NEGATIVE) Urine Occult Blood (NEGATIVE) Urine Nitrite (NEGATIVE) Urine Bilirubin (NEGATIVE) Urine Urobilinogen (0.2-1.0) mg/dL Ur Leukocyte Esterase (NEGATIVE) Urine RBC /HPF Urine WBC (0-5/HPF) /HPF Ur Epithelial Cells (NOT SEEN) /HPF Amorphous Sediment (NOT SEEN) /HPF Urine Bacteria (0-FEW/HPF) /HPF Urine Mucus (NOT SEEN) /LPF Salicylates mg/dL Urine Opiates Screen (NEGATIVE) Ur Oxycodone Screen (NEGATIVE) Urine Methadone Screen (NEGATIVE) Acetaminophen ug/mL Ur Barbiturates Screen (NEGATIVE) U Tricyclic Antidepress (NEGATIVE) Ur Phencyclidine Scrn (NEGATIVE) Ur Amphetamine Screen (NEGATIVE) U Methamphetamines Scrn (NEGATIVE) Urine MDMA Screen (NEGATIVE) U Benzodiazepines Scrn (NEGATIVE) Urine Cocaine Screen (NEGATIVE) U Marijuana (THC) Screen (NEGATIVE) Ethyl Alcohol mg/dL Meds: Medications Generic Name Dose Route Start Last Admin Trade Name Freq PRN Reason Stop Dose Admin Lactated Ringer's 1,000 mls @ 125 mls/hr 02/25/19 12:43 02/25/19 13:26 Ringers, Lactated IV 125 mls/hr ASDIRECTED CHARY Administration Discontinued Medications Generic Name Dose Route Start Last Admin Trade Name Freq PRN Reason Stop Dose Admin Albuterol 2.5 mg 02/25/19 14:21 Proventil Neb Soln NEB 02/25/19 14:22 ONETIME ONE Sodium Polystyrene Sulfonate 45 gm 02/25/19 14:20 Kayexalate RECTAL 02/25/19 14:21 NOW ONE - Re-Assessments/Exams Free Text/Narrative Re-Assessment/Exam: 02/25/19 14:31 A call was placed to [facility] in [place]. Dr. Bustillos reported that they do not have any ICU beds in [place]. Due to the patient's potassium and kidney function, Dr. Bustillos reported that the patient requires ICU monitoring. Report was called to [facility] in [place]. Dr. Hatfiled accepted the patient for continued evaluation and management. Departure - Departure Time of Disposition: 14:26 Disposition: DC/Tfer to [facility] 02 Condition: Serious Clinical Impression: Hyperkalemia Acute renal failure Qualifiers: Acute renal failure type: unspecified Qualified Code(s): N17.9 - Acute kidney failure, unspecified Altered mental status Qualifiers: Altered mental status type: unspecified Qualified Code(s): R41.82 - Altered mental status, unspecified - Discharge Information *PRESCRIPTION DRUG MONITORING PROGRAM REVIEWED*: Not Applicable *COPY OF PRESCRIPTION DRUG MONITORING REPORT IN PATIENT FOREST: Not Applicable Forms: [facility] Plan Goals: Discussed the examination, history lab and treatments with Dr. Hatfield (ED at [facility]). Dr. Hatfield accepted the patient for continued evaluation and management. The patient was given Kayexolate (45 gm rectal) and an Albuterol Neb treatment prior to transport. The patient will be transported by [facility]. - My Orders Last 24 Hours: My Active Orders 02/25/19 12:39 EKG Documentation Completion [RC] URGENT 02/25/19 12:43 Lactated Ringers [Ringers, Lactated] 1,000 ml IV ASDIRECTED 02/25/19 13:10 CULTURE BLOOD [BC] Stat 02/25/19 13:50 Blood Glucose Check, Bedside [RC] ONETIME 02/25/19 13:51 Urinary Catheter Assessment [RC] ASDIRECTED 02/25/19 14:00 Yin Catheter Insertion [Insert Urinary Catheter] [OM.PC] Q24H 02/25/19 14:21 RT Aerosol Therapy [RC] ASDIRECTED - Assessment/Plan Last 24 Hours: My Active Orders 02/25/19 12:39 EKG Documentation Completion [RC] URGENT 02/25/19 12:43 Lactated Ringers [Ringers, Lactated] 1,000 ml IV ASDIRECTED 02/25/19 13:10 CULTURE BLOOD [BC] Stat 02/25/19 13:50 Blood Glucose Check, Bedside [RC] ONETIME 02/25/19 13:51 Urinary Catheter Assessment [RC] ASDIRECTED 02/25/19 14:00 Yin Catheter Insertion [Insert Urinary Catheter] [OM.PC] Q24H 02/25/19 14:21 RT Aerosol Therapy [RC] ASDIRECTED
[2019-02-25 12:56] VITALS: BP 155/104; PULSE 86
[2019-02-25 13:44] LABS: ACETAMINOPHEN < 10 ug/mL
[2019-02-25 13:56] LABS: CHLORIDE,CL 99 mmol/L (101-111); SODIUM,NA 135 mmol/L (135-145)
[2019-02-25 13:58] LABS: ANION GAP 26.5
[2019-02-25] MEDS ORDERED: Sodium Polystyrene Sulfonate 15 GM/60 ML Susp 60 ML Bot RECTAL ONE (14:20)
[2019-02-25] MEDS ORDERED: Albuterol 0.083% 2.5 MG/3 ML Neb Soln NEB ONE (14:21)
[2019-02-25] MEDS ORDERED: 50% Dextrose in Water 50 ML Syringe IVPUSH ONE (15:04)
== END 2019-02-25 15:34 ==
LOC: DL.ED 12:52
DX: E87.5 Hyperkalemia (principal); R41.82 Altered mental status, unspecified; N17.9 Acute kidney failure, unspecified; I10 Essential (primary) hypertension; E78.5 Hyperlipidemia, unspecified; J44.9 Chronic obstructive pulmonary disease, unspecified; E11.40 Type 2 diabetes mellitus with diabetic neuropathy, unspecified; K21.9 Gastro-esophageal reflux disease without esophagitis; F17.200 Nicotine dependence, unspecified, uncomplicated; Z88.1 Allergy status to other antibiotic agents; Z79.82 Long term (current) use of aspirin; Z79.899 Other long term (current) drug therapy; Z79.4 Long term (current) use of insulin
CPT/HCPCS: 36415; 51702; 80053; 80305; 81001; 82962; 83605; 83735; 84484; 85025; 87040; 93005; 94640; 96361; 96374; 99285; A9270; G0480; J7120; 99284; J7060; J7613-GY

== ENCOUNTER 2020-05-02 12:59 | Emergency (ER) | payer MEDICARE, MEDICAID ==
[~2020-05-02 12:59] MED LIST changes: +50% Dextrose in Water 50 ML Syringe IVPUSH ONE; +50% Dextrose in Water 50 ML Syringe ONE; -Lactated Ringers 1,000 ML IV SCH; +Lidocaine 1% 30 ML SDV INJECT ONE; +Sodium Chloride 0.9% 10 ML Syringe FLUSH PRN
[2020-05-02] MEDS ORDERED: Dextrose 5%-0.9% NaCl 1,000 ML IV SCH (13:00)
[2020-05-02 13:14] VITALS: BP 115/75; PULSE 78
[2020-05-02] MEDS ORDERED: 50% Dextrose in Water 50 ML Syringe IVPUSH ONE (13:31)
[2020-05-02 13:41] LABS: ANION GAP 17.1 mEq/L (7-13); CHLORIDE,CL 101 mmol/L (98-107); SODIUM,NA 142 mmol/L (136-145)
[2020-05-02] MEDS: 50% Dextrose in Water 50 ML Syringe IVPUSH ONE ×2 (14:03→15:30)
--- NOTE | 2020-05-02 14:25 | EDM.PDOC ---
Scribed by Kelsie Yip 05/02/20 [id number] for Viktor Reynolds MD ED HPI GENERAL MEDICAL PROBLEM - General Chief Complaint: Diabetic Complaint Stated Complaint: AMBULANCE Time Seen by Provider: 05/02/20 12:57 Source of Information: Reports: Patient, EMS, EMS Notes Reviewed, RN, RN Notes Reviewed History Limitations: Reports: No Limitations - History of Present Illness INITIAL COMMENTS - FREE TEXT/NARRATIVE: Patient presents to ED by [facility] with decreased level of consciousness believe to be due to hypoglycemia. Patient found to have blood sugar less than 20 this morning. Patient arrived confused and obtunded. He became alert and orientated following placement of left lower extremity, IO, and administration of 1 amp of Dextrose 50%. Patient states that he took his insulin last evening. He cannot recall for certain if he used it this morning or not. Onset: Today Duration: Getting Worse Severity: Severe Improves with: Reports: None Worsens with: Reports: None Associated Symptoms: Reports: No Other Symptoms - Related Data Allergies Allergy/AdvReac Type Severity Reaction Status Date / Time levofloxacin [From Levaquin] Allergy Rash Verified 05/02/20 13:11 vancomycin Allergy Hives Verified 05/02/20 13:11 Home Meds: Home Meds Albuterol [Proair HFA] 1 puff INH Q6HR PRN 01/29/15 [History] Aspirin [Halfprin] 81 mg PO DAILY 01/29/15 [History] Docusate Sodium [Colace] 50 mg PO BID PRN 01/29/15 [History] Fluticasone/Salmeterol [Advair 250-50] 1 puff INH DAILY 01/29/15 [History] Furosemide [Lasix] 20 mg PO DAILY 01/29/15 [History] Insulin Glarg,Human.Rec.Analog [LantUS Solostar] 17 units SQ BEDTIME 01/29/15 [History] Isosorbide Mononitrate [Isosorbide Mononitrate ER] 30 mg PO DAILY 01/29/15 [History] Losartan [Cozaar] 100 mg PO DAILY 01/29/15 [History] Metoprolol Succinate [Toprol XL] 50 mg PO DAILY 01/29/15 [History] Omeprazole 20 mg PO BID 01/29/15 [History] Pregabalin [Lyrica] 200 mg PO TID 01/29/15 [History] Sertraline HCl 100 mg PO BID 01/29/15 [History] Simvastatin 10 mg PO BEDTIME 01/29/15 [History] SitaGLIPtin [Januvia] 100 mg PO DAILY 01/29/15 [History] buPROPion [Wellbutrin XL] 150 mg PO DAILY 01/29/15 [History] glipiZIDE [Glucotrol XL] 5 mg PO BID 01/29/15 [History] metFORMIN [Glucophage] 1,000 mg PO BID 01/29/15 [History] Acetaminophen [Tylenol] 650 mg PO Q4H PRN #0 tablet 02/08/15 [Rx] Zolpidem [Ambien] 10 mg PO BEDTIME 04/04/15 [History] Naproxen [Naprosyn] 500 mg PO BID 05/30/16 [History] Amoxicillin/Clavulanate K [Augmentin 875 MG/125 MG] 1 tab PO Q12HR #20 tablet [Rx] Hydrocodone/Acetaminophen [Hydrocodone-Acetamin 5-325 mg] 1 each PO 6XDAY PRN 02/25/19 [History] Rosuvastatin Calcium 20 mg PO DAILY 02/25/19 [History] Past Medical History HEENT History: Reports: Impaired Vision, Other (See Below) Other HEENT History: WEARS CORRECTIVE LENS Cardiovascular History: Reports: High Cholesterol, Hypertension Respiratory History: Reports: Asthma, COPD, Other (See Below) Other Respiratory History: HX OF TOBACCO ABUSE Gastrointestinal History: Reports: Chronic Constipation, GERD Other Gastrointestinal History: esophageal varices Genitourinary History: Reports: None Musculoskeletal History: Reports: Arthritis, Back Pain, Chronic, Fracture Other Musculoskeletal History: osteomyletis Neurological History: Reports: Neuropathy, Diabetic Psychiatric History: Reports: Depression, Other (See Below) Other Psychiatric History: TOBACCO ABUSE Endocrine/Metabolic History: Reports: Diabetes, Type II Other Endocrine/Metabolic History: diabetic nephropathy Hematologic History: Reports: None Immunologic History: Reports: None Oncologic (Cancer) History: Reports: None Dermatologic History: Reports: Cellulitis Other Dermatologic History: open areas to R) ft - Infectious Disease History Infectious Disease History: Reports: Chicken Pox - Past Surgical History Head Surgeries/Procedures: Reports: None GI Surgical History: Reports: Colonoscopy, Hernia Repair/Other Musculoskeletal Surgical History: Reports: Amputation, Other (See Below) Social & Family History - Family History Family Medical History: No Pertinent Family History - Caffeine Use Caffeine Use: Reports: None - Living Situation & Occupation Living situation: Reports: Alone Occupation: Disabled ED ROS GENERAL - Review of Systems Review Of Systems: Comprehensive ROS is negative, except as noted in HPI. ED EXAM GENERAL NO PERIP PULSE - Physical Exam Exam: See Below Exam Limited By: No Limitations General Appearance: Lethargic Eye Exam: Bilateral Eye: EOMI, Normal Inspection, PERRL Nose: Normal Inspection, Normal Mucosa, No Blood Throat/Mouth: Normal Inspection, Normal Lips, Normal Oropharynx, Normal Voice, No Airway Compromise Head: Atraumatic, Normocephalic Neck: Normal Inspection, Supple, Non-Tender, Full Range of Motion Respiratory/Chest: No Respiratory Distress, Lungs Clear, Normal Breath Sounds, No Accessory Muscle Use, Chest Non-Tender Cardiovascular: Regular Rate, Rhythm, No Edema GI/Abdominal: Normal Bowel Sounds, Soft, Non-Tender, No Organomegaly, No Distention, No Abnormal Bruit, No Mass Back Exam: Normal Inspection Extremities: Normal Range of Motion, Other (Compression dressings on B/L lower extremities. B/L lower extremities with chronic venous stasis changes, left lower leg is red from the ankle to the mid-tibia height with mild increased warmth.). No: Joint Swelling, Leg Pain Neurological: CN II-XII Intact, Normal Cognition, No Motor/Sensory Deficits, Other (Pt confused and lethargic on arrival. After 1 amp. D50% pt became awake, alert, and oriented x3) Psychiatric: Normal Affect, Normal Mood Skin Exam: Warm, Dry #1 Interpretation EKG Date: 05/02/20 Time: 13:05 Rhythm: Other (sinus rhythm) Rate (Beats/Min): 75 [place]: Normal P-Wave: Present QRS: RBBB (LPFB) ST-T: Normal QT: Normal Comparison: NA - No Prior EKG Course - Vital Signs Last Recorded V/S: Last Vital Signs Temp 96.6 F L 05/02/20 13:11 Pulse 78 05/02/20 13:11 Resp 20 05/02/20 13:11 BP 115/75 05/02/20 13:11 Pulse Ox 100 05/02/20 13:11 - Orders/Labs/Meds Orders: Active Orders 24 hr Category Date Time Status Blood Glucose Check, Bedside [] ONETIME Care 05/02/20 12:57 Active Blood Glucose Check, Bedside [] ONETIME Care 05/02/20 13:11 Active Blood Glucose Check, Bedside [] ONETIME Care 05/02/20 13:31 Active Blood Glucose Check, Bedside [] ONETIME Care 05/02/20 14:09 Active EKG 12 Lead [EKG Documentation Completion] [] STAT Care 05/02/20 12:59 A ctive Peripheral IV Care [RC] . DIRECTED Care 05/02/20 12:57 Active DRUG SCREEN URINE BIORAD [URCHEM] Stat Lab 05/02/20 12:57 Ordered UA RFX BRYON AND CULT IF INDIC [URIN] Stat Lab 05/02/20 12:57 Ordered Dextrose 5%-0.9% NaCl [Dextrose 5%-Normal Saline] 1,000 Med 05/02/20 13:00 Active ml IV ASDIRECTED Sodium Chloride 0.9% [Saline Flush] Med 05/02/20 12:57 Active 10 ml FLUSH ASDIRECTED PRN IO Insertion [Intraosseous Insertion] [OM.PC] Routine Oth 05/02/20 12:56 Ordered Peripheral IV Insertion Adult [OM.PC] Routine Oth 05/02/20 12:57 Ordered Medication Orders Dextrose/Sodium Chloride (Dextrose 5%-Normal Saline) 1,000 mls @ 150 mls/hr IV ASDIRECTED CHARY Last Admin: 05/02/20 13:07 Dose: 150 mls/hr Documented by: TOREY Sodium Chloride (Saline Flush) 10 ml FLUSH ASDIRECTED PRN PRN Reason: Keep Vein Open Last Admin: 05/02/20 13:39 Dose: 10 ml Documented by: SHAUNNA Labs: Laboratory Tests 05/02/20 05/02/20 05/02/20 Range/Units 12:59 13:14 13:14 WBC 8.6 (5.0-10.0) 10^3/uL RBC 4.07 L (4.6-6.2) 10^6/uL Hgb 12.3 L (14.0-18.0) g/dL Hct 36.8 L (40.0-54.0) % MCV 90.4 (80-100) fL MCH 30.2 (27.0-34.0) pg MCHC 33.4 (33.0-35.0) g/dL Plt Count 162 (150-450) 10^3/uL Neut % (Auto) 72.6 (42.2-75.2) % Lymph % (Auto) 21.3 (20.5-50.1) % [place] % (Auto) 4.9 (2-8) % Eos % (Auto) 0.6 L (1.0-3.0) % Baso % (Auto) 0.6 (0.0-1.0) % Sodium 142 (136-145) mmol/L Potassium 4.1 (3.5-5.1) mmol/L Chloride 101 (98-107) mmol/L Carbon Dioxide 28 (21-32) mmol/L Anion Gap 17.1 H (7-13) mEq/L BUN 22 H (7-18) mg/dL Creatinine 1.45 H (0.70-1.30) mg/dL Est Cr Clr Drug Dosing 53.82 mL/min Estimated GFR (MDRD) 51 BUN/Creatinine Ratio 15.2 (No establ ref range) Glucose 53 L (74-99) mg/dL POC Glucose < 20 L* (70-105) mg/dl Calcium 8.9 (8.5-10.1) mg/dL Total Bilirubin 0.5 (0.2-1.0) mg/dL AST 18 (15-37) U/L ALT 17 (16-63) U/L Alkaline Phosphatase 108 (46-116) U/L Troponin I < 0.017 (0.000-0.056) ng/mL Total Protein 8.8 H (6.4-8.2) g/dL Albumin 3.6 (3.4-5.0) g/dL Globulin 5.2 Albumin/Globulin Ratio 0.7 Ethyl Alcohol < 3 (0) mg/dL 05/02/20 05/02/20 Range/Units 13:25 13:52 WBC (5.0-10.0) 10^3/uL RBC (4.6-6.2) 10^6/uL Hgb (14.0-18.0) g/dL Hct (40.0-54.0) % MCV (80-100) fL MCH (27.0-34.0) pg MCHC (33.0-35.0) g/dL Plt Count (150-450) 10^3/uL Neut % (Auto) (42.2-75.2) % Lymph % (Auto) (20.5-50.1) % [place] % (Auto) (2-8) % Eos % (Auto) (1.0-3.0) % Baso % (Auto) (0.0-1.0) % Sodium (136-145) mmol/L Potassium (3.5-5.1) mmol/L Chloride (98-107) mmol/L Carbon Dioxide (21-32) mmol/L Anion Gap (7-13) mEq/L BUN (7-18) mg/dL Creatinine (0.70-1.30) mg/dL Est Cr Clr Drug Dosing mL/min Estimated GFR (MDRD) BUN/Creatinine Ratio (No establ ref range) Glucose (74-99) mg/dL POC Glucose 42 L* 43 L* (70-105) mg/dl Calcium (8.5-10.1) mg/dL Total Bilirubin (0.2-1.0) mg/dL AST (15-37) U/L ALT (16-63) U/L Alkaline Phosphatase (46-116) U/L Troponin I (0.000-0.056) ng/mL Total Protein (6.4-8.2) g/dL Albumin (3.4-5.0) g/dL Globulin Albumin/Globulin Ratio Ethyl Alcohol (0) mg/dL Meds: Medications Generic Name Dose Route Start Last Admin Trade Name Freq PRN Reason Stop Dose Admin Dextrose/Sodium Chloride 1,000 mls @ 150 mls/hr 05/02/20 13:00 05/02/20 13:07 Dextrose 5%-Normal Saline IV 150 mls/hr ASDIRECTED CHARY Administration Sodium Chloride 10 ml 05/02/20 12:57 05/02/20 13:39 Saline Flush FLUSH 10 ml ASDIRECTED PRN Administration Keep Vein Open Discontinued Medications Generic Name Dose Route Start Last Admin Trade Name Freq PRN Reason Stop Dose Admin Dextrose/Water 50 ml 05/02/20 12:56 05/02/20 13:06 Dextrose 50% In Water IVPUSH 05/02/20 12:57 50 ml ONETIME ONE Administration Dextrose/Water Confirm 05/02/20 12:56 05/02/20 13:07 Dextrose 50% In Water Administered 05/02/20 12:57 Not Given Dose 50 ml .ROUTE .STK-MED ONE Dextrose/Water 50 ml 05/02/20 13:31 05/02/20 13:36 Dextrose 50% In Water IVPUSH 05/02/20 13:32 50 ml ONETIME ONE Administration Dextrose/Water 50 ml 05/02/20 13:52 Dextrose 50% In Water IVPUSH 05/02/20 13:53 ONETIME ONE Lidocaine HCl 30 ml 05/02/20 12:58 05/02/20 13:07 Xylocaine-Mpf 1% INJECT 05/02/20 12:59 30 ml ONETIME ONE Administration - Re-Assessments/Exams Free Text/Narrative Re-Assessment/Exam: 05/02/20 14:17 Pt states his blood glucose is in the 46 to 50 range every day and he tolerates it well without any symptoms. I advised pt of my intent to admit him to observation, but he politely refuses and states he is going home regardless of what I recommend. I explained the rationale for observation, and the risks of being home alone. Pt acknowledges the risks, but still insists on going home. He agrees to monitor his blood sugar closely for the next 2 days. Pt was instructed to hold his fast acting insulin today. Departure - Departure Time of Disposition: 15:00 Disposition: Home, Self-Care 01 Condition: Good Clinical Impression: Hypoglycemia associated with type 2 diabetes mellitus - Discharge Information *PRESCRIPTION DRUG MONITORING PROGRAM REVIEWED*: Not Applicable *COPY OF PRESCRIPTION DRUG MONITORING REPORT IN PATIENT FOREST: Not Applicable Instructions: Hypoglycemia, [id number] Forms: ED Department Discharge Additional Instructions: Monitor your blood sugar closely today and tomorrow. Do not use your fast acting insulin today. Follow up with your primary clinic this week for recheck. Sepsis Event Note (ED) - Focused Exam Vital Signs: Vital Signs Temp Pulse Resp BP Pulse Ox 05/02/20 13:11 96.6 F L 78 20 115/75 100 - My Orders Last 24 Hours: My Active Orders 05/02/20 12:56 IO Insertion [Intraosseous Insertion] [OM.PC] Routine 05/02/20 12:57 Blood Glucose Check, Bedside [RC] ONETIME Peripheral IV Care [RC] . DIRECTED DRUG SCREEN URINE BIORAD [URCHEM] Stat UA RFX BRYON AND CULT IF INDIC [URIN] Stat Sodium Chloride 0.9% [Saline Flush] 10 ml FLUSH ASDIRECTED PRN Peripheral IV Insertion Adult [OM.PC] Routine 05/02/20 12:59 EKG 12 Lead [EKG Documentation Completion] [RC] STAT 05/02/20 13:00 Dextrose 5%-0.9% NaCl [Dextrose 5%-Normal Saline] 1,000 ml IV ASDIRECTED 05/02/20 13:11 Blood Glucose Check, Bedside [RC] ONETIME 05/02/20 13:31 Blood Glucose Check, Bedside [RC] ONETIME 05/02/20 14:09 Blood Glucose Check, Bedside [RC] ONETIME - Assessment/Plan Last 24 Hours: My Active Orders 05/02/20 12:56 IO Insertion [Intraosseous Insertion] [OM.PC] Routine 05/02/20 12:57 Blood Glucose Check, Bedside [RC] ONETIME Peripheral IV Care [RC] . DIRECTED DRUG SCREEN URINE BIORAD [URCHEM] Stat UA RFX BRYON AND CULT IF INDIC [URIN] Stat Sodium Chloride 0.9% [Saline Flush] 10 ml FLUSH ASDIRECTED PRN Peripheral IV Insertion Adult [OM.PC] Routine 05/02/20 12:59 EKG 12 Lead [EKG Documentation Completion] [RC] STAT 05/02/20 13:00 Dextrose 5%-0.9% NaCl [Dextrose 5%-Normal Saline] 1,000 ml IV ASDIRECTED 05/02/20 13:11 Blood Glucose Check, Bedside [RC] ONETIME 05/02/20 13:31 Blood Glucose Check, Bedside [RC] ONETIME 05/02/20 14:09 Blood Glucose Check, Bedside [RC] ONETIME I have read and agree with the documentation that has been completed regarding this visit. By signing this record, I attest that the documentation was completed in my physical presence and is an accurate record of the encounter.
== END 2020-05-02 15:02 | disposition home or self-care (01) ==
LOC: DL.ED 12:59
DX: E11.649 Type 2 diabetes mellitus with hypoglycemia without coma (principal); E78.00 Pure hypercholesterolemia, unspecified; I10 Essential (primary) hypertension; J44.9 Chronic obstructive pulmonary disease, unspecified; K21.9 Gastro-esophageal reflux disease without esophagitis; M19.90 Unspecified osteoarthritis, unspecified site; E11.40 Type 2 diabetes mellitus with diabetic neuropathy, unspecified; F32.9 Major depressive disorder, single episode, unspecified; E11.21 Type 2 diabetes mellitus with diabetic nephropathy; Z88.1 Allergy status to other antibiotic agents; Z79.82 Long term (current) use of aspirin; Z79.4 Long term (current) use of insulin; Z79.899 Other long term (current) drug therapy
CPT/HCPCS: 36415; 36680; 80053; 80307; 82962; 84484; 85025; 93005; 96374; 96376; 99283; 99285; J2001; J7042

== ENCOUNTER 2020-05-27 14:16 | Inpatient (IN) | payer MEDICARE, MEDICAID ==
[2020-05-27 15:09] LABS: CHLORIDE,CL 94 mmol/L (98-107); SODIUM,NA 130 mmol/L (136-145)
[2020-05-27 15:30] LABS: CORONAVIRUS COVID-19 NAA NEGATIVE (NEGATIVE)
[2020-05-27] MEDS ORDERED: Sodium Chloride 0.9% 1,000 ML IV ONE (15:39)
--- NOTE | 2020-05-27 15:47 | EDM.PDOC ---
ED HPI GENERAL MEDICAL PROBLEM - General Chief Complaint: Diabetic Complaint Stated Complaint: DIZZINESS, WEAKNESS, SICK, TROUBLE BREATHING Time Seen by Provider: 05/27/20 15:15 Source of Information: Reports: Patient, Family History Limitations: Reports: No Limitations - History of Present Illness INITIAL COMMENTS - FREE TEXT/NARRATIVE: This 54 yo male patient was brought to the ED by family due to increased tiredness, a fever and a runny nose. The patient reports he has not been feeling well over the past couple of days. The patient does have home health who called the patient's contact regarding the patient not looking well today. The family member brought the patient into the ED. The patient reports he has been very tired lately and has had a runny nose. The patient denies any shortness of breath, denies abdominal pain, and denies nausea/vomiting/diarrhea. The patient reports he has not eaten since last night due to being very tired. The patient has a history of diabetes. Duration: Day(s):, Constant, Getting Worse Location: Reports: Generalized Quality: Reports: Other Severity: Moderate Improves with: Reports: None Worsens with: Reports: None Context: Reports: Other Associated Symptoms: Reports: No Other Symptoms - Related Data Allergies Allergy/AdvReac Type Severity Reaction Status Date / Time levofloxacin [From Levaquin] Allergy Rash Verified 05/27/20 15:08 vancomycin Allergy Hives Verified 05/27/20 15:08 Home Meds: Home Meds Fluticasone/Salmeterol [Advair 250-50] 1 puff INH BID 01/29/15 [History] Insulin Glarg,Human.Rec.Analog [LantUS Solostar] 30 units SQ BEDTIME 01/29/15 [History] Metoprolol Succinate [Toprol XL] 50 mg PO DAILY 01/29/15 [History] Acetaminophen [Tylenol] 1,000 mg PO Q6HR PRN 05/27/20 [History] Cyanocobalamin (Vitamin B-12) [Cyanocobalamin Injection] 1 ml INJECT ASDIRECTED 05/27/20 [History] DULoxetine [Cymbalta] 60 mg PO DAILY 05/27/20 [History] Gabapentin [Neurontin] 600 mg PO TID 05/27/20 [History] Insulin Aspart [NovoLOG] 5 units SUBCUT TIDMEALS 05/27/20 [History] PARoxetine [Paxil] 20 mg PO DAILY 05/27/20 [History] Pantoprazole Sodium [Protonix] 20 mg PO BID 05/27/20 [History] QUEtiapine [SEROquel] 25 mg PO BID 05/27/20 [History] atorvaSTATin [Lipitor] 10 mg PO BEDTIME 05/27/20 [History] lisinopriL [Lisinopril] 40 mg PO DAILY 05/27/20 [History] oxyCODONE 5 mg PO Q8HR PRN 05/27/20 [History] Past Medical History HEENT History: Reports: Impaired Vision, Other (See Below) Other HEENT History: WEARS CORRECTIVE LENS Cardiovascular History: Reports: High Cholesterol, Hypertension Respiratory History: Reports: Asthma, COPD, Other (See Below) Other Respiratory History: HX OF TOBACCO ABUSE Gastrointestinal History: Reports: Chronic Constipation, GERD Other Gastrointestinal History: esophageal varices Genitourinary History: Reports: None Musculoskeletal History: Reports: Arthritis, Back Pain, Chronic, Fracture Other Musculoskeletal History: osteomyletis Neurological History: Reports: Neuropathy, Diabetic Psychiatric History: Reports: Depression, Other (See Below) Other Psychiatric History: TOBACCO ABUSE Endocrine/Metabolic History: Reports: Diabetes, Type II Other Endocrine/Metabolic History: diabetic nephropathy Hematologic History: Reports: None Immunologic History: Reports: None Oncologic (Cancer) History: Reports: None Dermatologic History: Reports: Cellulitis Other Dermatologic History: open areas to R) ft - Infectious Disease History Infectious Disease History: Reports: Chicken Pox - Past Surgical History Head Surgeries/Procedures: Reports: None Other HEENT Surgeries/Procedures: TEETH REMOVED Other Cardiovascular Surgeries/Procedures: unable to place stent GI Surgical History: Reports: Colonoscopy, Hernia Repair/Other Musculoskeletal Surgical History: Reports: Amputation, Other (See Below) Other Musculoskeletal Surgeries/Procedures:: 1st and second toes or (R) foot amputated Social & Family History - Family History Family Medical History: No Pertinent Family History - Tobacco Use Tobacco Use Status *Q: Never Tobacco User - Caffeine Use Caffeine Use: Reports: None - Recreational Drug Use Recreational Drug Use: No ED ROS GENERAL - Review of Systems Review Of Systems: Comprehensive ROS is negative, except as noted in HPI. ED EXAM GENERAL NO PERIP PULSE - Physical Exam Exam: See Below Exam Limited By: No Limitations General Appearance: Alert, WD/WN, No Apparent Distress Eye Exam: Bilateral Eye: EOMI, Normal Inspection, PERRL Ears: Normal External Exam, Normal Canal, Hearing Grossly Normal, Normal TMs Nose: Normal Inspection, Normal Mucosa, No Blood Throat/Mouth: Normal Inspection, Normal Lips, Normal Teeth, Normal Gums, Normal Oropharynx, Normal Voice, No Airway Compromise Head: Atraumatic, Normocephalic Neck: Normal Inspection, Supple, Non-Tender, Full Range of Motion Respiratory/Chest: No Accessory Muscle Use, Chest Non-Tender, Decreased Breath Sounds, Rhonchi (Right side) Cardiovascular: Normal Peripheral Pulses, Regular Rate, Rhythm, No Edema, No Gallop, No JVD, No Murmur, No Rub GI/Abdominal: Normal Bowel Sounds, Soft, Non-Tender, No Organomegaly, No Distention, No Abnormal Bruit, No Mass (Male) Exam: Deferred Rectal (Males) Exam: Deferred Back Exam: Normal Inspection, Full Range of Motion, NT Extremities: Normal Inspection, Normal Range of Motion, Non-Tender, Normal Capillary Refill, No Pedal Edema Neurological: Alert, Oriented, CN II-XII Intact, Normal Cognition, Normal Gait, Normal Reflexes, No Motor/Sensory Deficits Psychiatric: Normal Affect, Normal Mood Skin Exam: Dry, Intact, Normal Color, No Rash, Increased Warmth Lymphatic: No Adenopathy Course - Vital Signs Last Recorded V/S: Last Vital Signs Temp 37.8 C 05/27/20 14:30 Pulse 90 05/27/20 14:30 Resp 20 05/27/20 14:30 BP 86/51 L 05/27/20 14:30 Pulse Ox 96 05/27/20 14:30 - Orders/Labs/Meds Orders: Active Orders 24 hr Category Date Time Status Admission Diagnosis [ADT] Urgent ADT 05/27/20 16:51 Ordered Admission Status [Patient Status] [ADT] Routine ADT 05/27/20 16:51 Ordered EKG Documentation Completion [RC] STAT Care 05/27/20 14:25 Active Glucose [Blood Glucose Check, Bedside] [RC] ONETIME Care 05/27/20 14:25 Active CULTURE BLOOD [BC] Stat Lab 05/27/20 14:40 Received UA RFX BRYON AND CULT IF INDIC [URIN] Urgent Lab 05/27/20 14:25 Ordered Sodium Chloride 0.9% [Normal Saline] 1,000 ml Med 05/27/20 15:39 Active IV .BOLUS Medication Orders Sodium Chloride (Normal Saline) 1,000 mls @ 500 mls/hr IV .BOLUS ONE Stop: 05/27/20 17:38 Last Admin: 05/27/20 15:57 Dose: 500 mls/hr Documented by: SHAUNNA Labs: Laboratory Tests 05/27/20 05/27/20 05/27/20 Range/Units 14:28 14:29 14:40 WBC 10.0 (5.0-10.0) 10^3/uL RBC 3.78 L (4.6-6.2) 10^6/uL Hgb 10.7 L D (14.0-18.0) g/dL Hct 32.0 L (40.0-54.0) % MCV 84.7 D (80-100) fL MCH 28.3 (27.0-34.0) pg MCHC 33.4 (33.0-35.0) g/dL Plt Count 273 D (150-450) 10^3/uL Neut % (Auto) 82.3 H (42.2-75.2) % Lymph % (Auto) 11.1 L (20.5-50.1) % [place] % (Auto) 6.0 (2-8) % Eos % (Auto) 0.1 L (1.0-3.0) % Baso % (Auto) 0.5 (0.0-1.0) % Sodium (136-145) mmol/L Potassium (3.5-5.1) mmol/L Chloride (98-107) mmol/L Carbon Dioxide (21-32) mmol/L Anion Gap (7-13) mEq/L BUN (7-18) mg/dL Creatinine (0.70-1.30) mg/dL Est Cr Clr Drug Dosing mL/min Estimated GFR (MDRD) BUN/Creatinine Ratio (No establ ref range) Glucose (74-99) mg/dL POC Glucose 195 H (70-105) mg/dl Lactic Acid (0.4-2.0) mmol/L Calcium (8.5-10.1) mg/dL Magnesium (1.8-2.4) mg/dL Total Bilirubin (0.2-1.0) mg/dL AST (15-37) U/L ALT (16-63) U/L Alkaline Phosphatase (46-116) U/L Troponin I (0.000-0.056) ng/mL Total Protein (6.4-8.2) g/dL Albumin (3.4-5.0) g/dL Globulin Albumin/Globulin Ratio Ketones Influenza Type A RNA Negative (NEGATIVE) Influenza Type B RNA Negative (NEGATIVE) SARS-CoV-2 RNA (GABRIELLA) Negative (NEGATIVE) 05/27/20 05/27/20 Range/Units 14:40 14:40 WBC (5.0-10.0) 10^3/uL RBC (4.6-6.2) 10^6/uL Hgb (14.0-18.0) g/dL Hct (40.0-54.0) % MCV (80-100) fL MCH (27.0-34.0) pg MCHC (33.0-35.0) g/dL Plt Count (150-450) 10^3/uL Neut % (Auto) (42.2-75.2) % Lymph % (Auto) (20.5-50.1) % [place] % (Auto) (2-8) % Eos % (Auto) (1.0-3.0) % Baso % (Auto) (0.0-1.0) % Sodium 130 L D (136-145) mmol/L Potassium 5.0 (3.5-5.1) mmol/L Chloride 94 L (98-107) mmol/L Carbon Dioxide 25 (21-32) mmol/L Anion Gap 16.0 H (7-13) mEq/L BUN 75 H D (7-18) mg/dL Creatinine 3.85 H D (0.70-1.30) mg/dL Est Cr Clr Drug Dosing 19.56 mL/min Estimated GFR (MDRD) 16 BUN/Creatinine Ratio 19.5 (No establ ref range) Glucose 198 H (74-99) mg/dL POC Glucose (70-105) mg/dl Lactic Acid 0.7 (0.4-2.0) mmol/L Calcium 9.2 (8.5-10.1) mg/dL Magnesium 2.1 (1.8-2.4) mg/dL Total Bilirubin 0.2 (0.2-1.0) mg/dL AST 17 (15-37) U/L ALT 15 L (16-63) U/L Alkaline Phosphatase 194 H (46-116) U/L Troponin I < 0.017 (0.000-0.056) ng/mL Total Protein 9.0 H (6.4-8.2) g/dL Albumin 3.0 L (3.4-5.0) g/dL Globulin 6.0 Albumin/Globulin Ratio 0.50 Ketones Negative Influenza Type A RNA (NEGATIVE) Influenza Type B RNA (NEGATIVE) SARS-CoV-2 RNA (GABRIELLA) (NEGATIVE) Meds: Medications Generic Name Dose Route Start Last Admin Trade Name Freq PRN Reason Stop Dose Admin Sodium Chloride 1,000 mls @ 500 mls/hr 05/27/20 15:39 05/27/20 15:57 Normal Saline IV 05/27/20 17:38 500 mls/hr .BOLUS ONE Administration Departure - Departure Time of Disposition: 16:57 Disposition: Admitted As Inpatient 65 Condition: Fair Clinical Impression: Dehydration Acute renal failure (ARF) Qualifiers: Acute renal failure type: unspecified Qualified Code(s): N17.9 - Acute kidney failure, unspecified - Discharge Information *PRESCRIPTION DRUG MONITORING PROGRAM REVIEWED*: Not Applicable *COPY OF PRESCRIPTION DRUG MONITORING REPORT IN PATIENT FOREST: Not Applicable Care Plan Goals: Discussed the patient's history, examination, x-ray results, EKG, lab results and treatments with Dr. Barney. Dr. Barney accepted the patient for continued evaluation and further management as an inpatient at [facility] in [place]. Sepsis Event Note (ED) - Evaluation Sepsis Screening Result: No Definite Risk - Focused Exam Vital Signs: Vital Signs Temp Pulse Resp BP Pulse Ox 05/27/20 14:30 37.8 C 90 20 86/51 L 96 - My Orders Last 24 Hours: My Active Orders 05/27/20 14:25 EKG Documentation Completion [RC] STAT Glucose [Blood Glucose Check, Bedside] [RC] ONETIME UA RFX BRYON AND CULT IF INDIC [URIN] Urgent 05/27/20 14:40 CULTURE BLOOD [BC] Stat 05/27/20 15:39 Sodium Chloride 0.9% [Normal Saline] 1,000 ml IV .BOLUS 05/27/20 16:51 Admission Diagnosis [ADT] Urgent Admission Status [Patient Status] [ADT] Routine - Assessment/Plan Last 24 Hours: My Active Orders 05/27/20 14:25 EKG Documentation Completion [RC] STAT Glucose [Blood Glucose Check, Bedside] [RC] ONETIME UA RFX BRYON AND CULT IF INDIC [URIN] Urgent 05/27/20 14:40 CULTURE BLOOD [BC] Stat 05/27/20 15:39 Sodium Chloride 0.9% [Normal Saline] 1,000 ml IV .BOLUS 05/27/20 16:51 Admission Diagnosis [ADT] Urgent Admission Status [Patient Status] [ADT] Routine
--- NOTE | 2020-05-27 16:25 | CR ---
EXAMINATION: Chest 1V Frontal SEX: Male AGE: 54 years CLINICAL HISTORY: 54-year-old male with fever. Comparison chest x-ray 17 October 2016. Interpretation: No acute new cardiopulmonary abnormality. Mild rotation upright AP portable. Normal cardiac silhouette (size and configuration). No pulmonary vascular congestion, cephalization of flow, alveolar edema or dependent pleural fluid accumulation (effusion). No new lung mass or hilar lymphadenopathy. Midline tracheal bronchial airway unremarkable. No focal lobar alveolar consolidation, air bronchograms, or peripheral "groundglass" interstitial density. No pneumothorax or pneumomediastinum.
--- NOTE | 2020-05-27 19:12 | PCM.HP ---
H&P History of Present Illness - General Date of Service: 05/27/20 Admit Problem/Dx: Admission Diagnosis/Problem Admission Diagnosis/Problem Dehydration, ANGEL Source of Information: Patient - History of Present Illness Initial Comments - Free Text/Narative: Patient is a 54-year-old male who presented to the ER due to concerns for Covid. Patient reports that over the past few days he has been extremely tired. He has also had decreased p.o. intake due to decreased appetite. He also reports generalized weakness as well. He denies any fevers, chills, abdominal pain, chest pain, shortness of breath or any other associated symptoms. Of note family was concerned because his energy level was extremely decreased. In the ER creatinine was found to be 3.85, baseline 1.45. Sodium was found to be 130. Anion gap 16. Chest x-ray negative. Covid negative. Onset of Symptoms: Reports: Gradual Symptom Onset Date: 05/25/20 Duration of Symptoms: Reports: Day(s): Severity: Moderate Associated Symptoms: Reports: Weakness - Related Data Allergies/Adverse Reactions: Allergies Allergy/AdvReac Type Severity Reaction Status Date / Time levofloxacin [From Levaquin] Allergy Rash Verified 05/27/20 15:08 vancomycin Allergy Hives Verified 05/27/20 15:08 Home Medications: Home Meds Fluticasone/Salmeterol [Advair 250-50] 1 puff INH BID 01/29/15 [History] Insulin Glarg,Human.Rec.Analog [LantUS Solostar] 30 units SQ BEDTIME 01/29/15 [History] Metoprolol Succinate [Toprol XL] 50 mg PO DAILY 01/29/15 [History] Acetaminophen [Tylenol] 1,000 mg PO Q6HR PRN 05/27/20 [History] Cyanocobalamin (Vitamin B-12) [Cyanocobalamin Injection] 1 ml INJECT ASDIRECTED 05/27/20 [History] DULoxetine [Cymbalta] 60 mg PO DAILY 05/27/20 [History] Furosemide 40 mg PO DAILY 05/27/20 [History] Gabapentin [Neurontin] 600 mg PO TID 05/27/20 [History] Insulin Aspart [NovoLOG] 5 units SUBCUT TIDMEALS 05/27/20 [History] Insulin Glargine,Hum.Rec.Anlog [Basaglar Kwikpen U-100] 50 unit SQ BEDTIME 05/27/20 [History] PARoxetine [Paxil] 20 mg PO DAILY 05/27/20 [History] Pantoprazole Sodium [Protonix] 20 mg PO BID 05/27/20 [History] QUEtiapine [SEROquel] 25 mg PO BID 05/27/20 [History] Sulfamethoxazole/Trimethoprim [Sulfamethoxazole-Tmp Ds Tablet] 1 each PO DAILY 05/27/20 [History] atorvaSTATin [Lipitor] 10 mg PO BEDTIME 05/27/20 [History] lisinopriL [Lisinopril] 40 mg PO DAILY 05/27/20 [History] metOLazone [Metolazone] 2.5 mg PO DAILY 05/27/20 [History] oxyCODONE 5 mg PO Q8HR PRN 05/27/20 [History] Past Medical History HEENT History: Reports: Impaired Vision, Other (See Below) Other HEENT History: WEARS CORRECTIVE LENS Cardiovascular History: Reports: High Cholesterol, Hypertension Respiratory History: Reports: Asthma, COPD, Other (See Below) Other Respiratory History: HX OF TOBACCO ABUSE Gastrointestinal History: Reports: Chronic Constipation, GERD Other Gastrointestinal History: esophageal varices Genitourinary History: Reports: Diabetic Nephropathy Musculoskeletal History: Reports: Arthritis, Back Pain, Chronic, Fracture Other Musculoskeletal History: osteomyletis Neurological History: Reports: Concussion, Head Trauma, Neuropathy, Diabetic Psychiatric History: Reports: Addiction, Depression, Other (See Below) Other Psychiatric History: TOBACCO ABUSE Endocrine/Metabolic History: Reports: Diabetes, Type II Other Endocrine/Metabolic History: diabetic nephropathy Hematologic History: Reports: None Immunologic History: Reports: None Oncologic (Cancer) History: Reports: None Dermatologic History: Reports: Cellulitis Other Dermatologic History: open areas to R) ft - Infectious Disease History Infectious Disease History: Reports: Chicken Pox - Past Surgical History Head Surgeries/Procedures: Reports: None Other HEENT Surgeries/Procedures: TEETH REMOVED Other Cardiovascular Surgeries/Procedures: unable to place stent GI Surgical History: Reports: Colonoscopy, Hernia Repair/Other Musculoskeletal Surgical History: Reports: Amputation, Other (See Below) Other Musculoskeletal Surgeries/Procedures:: 1st and second toes or (R) foot amputated Social & Family History - Family History Family Medical History: No Pertinent Family History - Tobacco Use Tobacco Use Status *Q: Current Every Day Tobacco User Years of Tobacco use: 43 Packs/Tins Daily: 0.5 Used Tobacco, but Quit: No Second Hand Smoke Exposure: Yes - Caffeine Use Caffeine Use: Reports: Coffee, Soda - Alcohol Use Date of Last Drink: 02/27/19 - Recreational Drug Use Recreational Drug Use: Yes Drug Use in Last 12 Months: Yes Recreational Drug Type: Reports: Marijuana/Hashish Recreational Drug Use Frequency: Weekly H&P Review of Systems - Review of Systems: Review Of Systems: See Below General: Reports: Malaise, Weakness, Fatigue HEENT: Reports: No Symptoms Pulmonary: Reports: No Symptoms Cardiovascular: Reports: No Symptoms Gastrointestinal: Reports: No Symptoms Musculoskeletal: Reports: No Symptoms Skin: Reports: Wound Psychiatric: Reports: No Symptoms Neurological: Reports: No Symptoms Hematologic/Lymphatic: Reports: No Symptoms Immunologic: Reports: No Symptoms Exam - Exam Exam: See Below - Vital Signs Vital Signs: Last Vital Signs Temp 100.7 F H 05/27/20 17:08 Pulse 88 05/27/20 17:08 Resp 20 05/27/20 17:08 BP 110/53 L 05/27/20 17:08 Pulse Ox 100 05/27/20 17:08 Weight: 180 lb 9.6 oz - Exam General: Alert, Oriented HEENT: EOMI Neck: Trachea Midline Lungs: Clear to Auscultation, Normal Respiratory Effort Cardiovascular: Regular Rate GI/Abdominal Exam: Normal Bowel Sounds, No Distention Extremities: Normal Inspection Skin: Other (Patient with bilateral lower extremity, foot wounds, ulcers) Neurological: Cranial Nerves Intact Neuro Extensive - Mental Status: Alert, Oriented x3, Normal Mood/Affect, Normal Cognition Neuro Extensive - Motor, Sensory, Reflexes: CN II-XII Intact - Patient Data Lab Results Last 24 hrs: Laboratory Results - last 24 hr 05/27/20 05/27/20 05/27/20 Range/Units 14:28 14:29 14:40 WBC 10.0 (5.0-10.0) 10^3/uL RBC 3.78 L (4.6-6.2) 10^6/uL Hgb 10.7 L D (14.0-18.0) g/dL Hct 32.0 L (40.0-54.0) % MCV 84.7 D (80-100) fL MCH 28.3 (27.0-34.0) pg MCHC 33.4 (33.0-35.0) g/dL Plt Count 273 D (150-450) 10^3/uL Neut % (Auto) 82.3 H (42.2-75.2) % Lymph % (Auto) 11.1 L (20.5-50.1) % [place] % (Auto) 6.0 (2-8) % Eos % (Auto) 0.1 L (1.0-3.0) % Baso % (Auto) 0.5 (0.0-1.0) % Sodium (136-145) mmol/L Potassium (3.5-5.1) mmol/L Chloride (98-107) mmol/L Carbon Dioxide (21-32) mmol/L Anion Gap (7-13) mEq/L BUN (7-18) mg/dL Creatinine (0.70-1.30) mg/dL Est Cr Clr Drug Dosing mL/min Estimated GFR (MDRD) BUN/Creatinine Ratio (No establ ref range) Glucose (74-99) mg/dL POC Glucose 195 H (70-105) mg/dl Lactic Acid (0.4-2.0) mmol/L Calcium (8.5-10.1) mg/dL Magnesium (1.8-2.4) mg/dL Total Bilirubin (0.2-1.0) mg/dL AST (15-37) U/L ALT (16-63) U/L Alkaline Phosphatase (46-116) U/L Troponin I (0.000-0.056) ng/mL Total Protein (6.4-8.2) g/dL Albumin (3.4-5.0) g/dL Globulin Albumin/Globulin Ratio Ketones Influenza Type A RNA Negative (NEGATIVE) Influenza Type B RNA Negative (NEGATIVE) SARS-CoV-2 RNA (GABRIELLA) Negative (NEGATIVE) 05/27/20 05/27/20 Range/Units 14:40 14:40 WBC (5.0-10.0) 10^3/uL RBC (4.6-6.2) 10^6/uL Hgb (14.0-18.0) g/dL Hct (40.0-54.0) % MCV (80-100) fL MCH (27.0-34.0) pg MCHC (33.0-35.0) g/dL Plt Count (150-450) 10^3/uL Neut % (Auto) (42.2-75.2) % Lymph % (Auto) (20.5-50.1) % [place] % (Auto) (2-8) % Eos % (Auto) (1.0-3.0) % Baso % (Auto) (0.0-1.0) % Sodium 130 L D (136-145) mmol/L Potassium 5.0 (3.5-5.1) mmol/L Chloride 94 L (98-107) mmol/L Carbon Dioxide 25 (21-32) mmol/L Anion Gap 16.0 H (7-13) mEq/L BUN 75 H D (7-18) mg/dL Creatinine 3.85 H D (0.70-1.30) mg/dL Est Cr Clr Drug Dosing 19.56 mL/min Estimated GFR (MDRD) 16 BUN/Creatinine Ratio 19.5 (No establ ref range) Glucose 198 H (74-99) mg/dL POC Glucose (70-105) mg/dl Lactic Acid 0.7 (0.4-2.0) mmol/L Calcium 9.2 (8.5-10.1) mg/dL Magnesium 2.1 (1.8-2.4) mg/dL Total Bilirubin 0.2 (0.2-1.0) mg/dL AST 17 (15-37) U/L ALT 15 L (16-63) U/L Alkaline Phosphatase 194 H (46-116) U/L Troponin I < 0.017 (0.000-0.056) ng/mL Total Protein 9.0 H (6.4-8.2) g/dL Albumin 3.0 L (3.4-5.0) g/dL Globulin 6.0 Albumin/Globulin Ratio 0.50 Ketones Negative Influenza Type A RNA (NEGATIVE) Influenza Type B RNA (NEGATIVE) SARS-CoV-2 RNA (GABRIELLA) (NEGATIVE) Result Diagrams: 05/27/20 14:40 05/27/20 14:40 - Problem List (1) Acute renal failure SNOMED Code(s): 60336918 ICD Code: N17.9 - ACUTE KIDNEY FAILURE, UNSPECIFIED Status: Acute Current Visit: Yes Qualifiers: Acute renal failure type: unspecified Qualified Code(s): N17.9 - Acute kidney failure, unspecified (2) Dehydration SNOMED Code(s): 30482626 ICD Code: E86.0 - DEHYDRATION Status: Acute Current Visit: Yes Problem List Initiated/Reviewed/Updated: Yes Orders Last 24hrs: Active Orders 24 hr Category Date Time Status Admission Diagnosis [ADT] Urgent ADT 05/27/20 16:51 Ordered Admission Status [Patient Status] [ADT] Routine ADT 05/27/20 16:51 Active CULTURE BLOOD [BC] Stat Lab 05/27/20 14:40 Received UA RFX BRYON AND CULT IF INDIC [URIN] Urgent Lab 05/27/20 17:47 Ordered Assessment/Plan Comment:: - ANGEL - Dehydration Patient with increased in creatinine from 1.45 baseline to 3.85 Likely prerenal due to patient having reduced p.o. intake Patient status post IV fluids in the ER Continue normal saline at 125 an hour Holding home Lasix, lisinopril, metolazone Will continue to trend creatinine Urine sodium, urine creatinine, urine urea ordered Renal ultrasound ordered Bilateral foot wounds/ulcers Continue wound care Conitnue home medications
[2020-05-27] MEDS ORDERED: Acetaminophen 500 MG Tab PO PRN (19:31)
[2020-05-27] MEDS: Sodium Chloride 0.9% 1,000 ML IV SCH (20:25)
[2020-05-27] MEDS: Formoterol/Mometasone 200-5 MCG 8.8 GM Inhaler IH SCH (21:17)
[2020-05-27] MEDS: Gabapentin 300 MG Cap PO SCH (21:18)
[2020-05-27] MEDS: Insulin Glarg,Human.Rec.Analog 100 Unit/ML SUBCUT SCH (21:18)
[2020-05-27] MEDS: Omeprazole 20 MG Cap.CR PO SCH (21:19)
[2020-05-27] MEDS: atorvaSTATin 10 MG Tab PO SCH (21:19)
[2020-05-27] MEDS: QUEtiapine 25 MG Tab PO SCH (21:19)
[2020-05-28] MEDS: Sodium Chloride 0.9% 1,000 ML IV SCH (04:06)
[2020-05-28] MEDS: Omeprazole 20 MG Cap.CR PO SCH ×2 (05:49→16:52)
[2020-05-28 06:17] LABS: ANION GAP 14.5 mEq/L (7-13)
[2020-05-28] MEDS: Insulin Lispro 100 Units/ML 3 ML Vial SUBCUT SCH ×4 (08:20→21:37)
--- NOTE | 2020-05-28 09:43 | PCM.PN ---
- General Info Date of Service: 05/28/20 Admission Dx/Problem (Free Text): Admission Diagnosis/Problem Admission Diagnosis/Problem Dehydration, ANGEL Subjective Update: Patient is a 54-year-old male who presented to the ER due to concerns for Covid. Patient reported that over the past few days he has been extremely tired. He has also had decreased p.o. intake due to decreased appetite. He also reported generalized weakness as well. Of note family was concerned because his energy level was extremely decreased. In the ER creatinine was found to be 3.85, baseline 1.45. Sodium was found to be 130. Anion gap 16. Chest x-ray negative. Covid negative. Overnight patient doing well no complaints at this time. Functional Status: Reports: Pain Controlled, Tolerating Diet, Ambulating, Urinating - Review of Systems General: Reports: No Symptoms HEENT: Reports: No Symptoms Pulmonary: Reports: No Symptoms Cardiovascular: Reports: No Symptoms Gastrointestinal: Reports: No Symptoms Genitourinary: Reports: No Symptoms Musculoskeletal: Reports: No Symptoms Skin: Reports: No Symptoms Neurological: Reports: No Symptoms Psychiatric: Reports: No Symptoms - Patient Data Vitals - Most Recent: Last Vital Signs Temp 98.5 F 05/28/20 07:52 Pulse 44 L 05/28/20 07:52 Resp 14 05/28/20 07:52 BP 108/60 05/28/20 07:52 Pulse Ox 98 05/28/20 07:52 Weight - Most Recent: 180 lb 9.6 oz I&O - Last 24 Hours: Intake & Output 05/27/20 05/28/20 05/28/20 22:59 06:59 14:59 Intake Total 240 300 820 Output Total 900 690 Balance 240 -600 130 Lab Results Last 24 Hours: Laboratory Results - last 24 hr 05/27/20 05/27/20 05/27/20 Range/Units 14:28 14:29 14:40 WBC 10.0 (5.0-10.0) 10^3/uL RBC 3.78 L (4.6-6.2) 10^6/uL Hgb 10.7 L D (14.0-18.0) g/dL Hct 32.0 L (40.0-54.0) % MCV 84.7 D (80-100) fL MCH 28.3 (27.0-34.0) pg MCHC 33.4 (33.0-35.0) g/dL Plt Count 273 D (150-450) 10^3/uL Neut % (Auto) 82.3 H (42.2-75.2) % Lymph % (Auto) 11.1 L (20.5-50.1) % [place] % (Auto) 6.0 (2-8) % Eos % (Auto) 0.1 L (1.0-3.0) % Baso % (Auto) 0.5 (0.0-1.0) % Sodium (136-145) mmol/L Potassium (3.5-5.1) mmol/L Chloride (98-107) mmol/L Carbon Dioxide (21-32) mmol/L Anion Gap (7-13) mEq/L BUN (7-18) mg/dL Creatinine (0.70-1.30) mg/dL Est Cr Clr Drug Dosing mL/min Estimated GFR (MDRD) BUN/Creatinine Ratio (No establ ref range) Glucose (74-99) mg/dL POC Glucose 195 H (70-105) mg/dl Lactic Acid (0.4-2.0) mmol/L Calcium (8.5-10.1) mg/dL Magnesium (1.8-2.4) mg/dL Total Bilirubin (0.2-1.0) mg/dL AST (15-37) U/L ALT (16-63) U/L Alkaline Phosphatase (46-116) U/L Troponin I (0.000-0.056) ng/mL Total Protein (6.4-8.2) g/dL Albumin (3.4-5.0) g/dL Globulin Albumin/Globulin Ratio Urine Color (YELLOW) Urine Appearance (CLEAR) Urine pH (5.0-9.0) Ur Specific [place] (1.005-1.030) Urine Protein (NEGATIVE) Urine Glucose (UA) (NEGATIVE) Urine Ketones (NEGATIVE) Urine Occult Blood (NEGATIVE) Urine Nitrite (NEGATIVE) Urine Bilirubin (NEGATIVE) Urine Urobilinogen (0.2-1.0) mg/dL Ur Leukocyte Esterase (NEGATIVE) Urine RBC /HPF Urine WBC (0-5/HPF) /HPF Ur Epithelial Cells (NOT SEEN) /HPF Amorphous Sediment (NOT SEEN) /HPF Urine Bacteria (0-FEW/HPF) /HPF Fine Granular Casts (NOT SEEN) /LPF Urine Mucus (NOT SEEN) /LPF Ur Random Creatinine (No establ ref range) mg/dL Ur Random Sodium (No establ.ref range) mmol/L Ketones Influenza Type A RNA Negative (NEGATIVE) Influenza Type B RNA Negative (NEGATIVE) SARS-CoV-2 RNA (GABRIELLA) Negative (NEGATIVE) 05/27/20 05/27/20 05/27/20 Range/Units 14:40 14:40 21:16 WBC (5.0-10.0) 10^3/uL RBC (4.6-6.2) 10^6/uL Hgb (14.0-18.0) g/dL Hct (40.0-54.0) % MCV (80-100) fL MCH (27.0-34.0) pg MCHC (33.0-35.0) g/dL Plt Count (150-450) 10^3/uL Neut % (Auto) (42.2-75.2) % Lymph % (Auto) (20.5-50.1) % [place] % (Auto) (2-8) % Eos % (Auto) (1.0-3.0) % Baso % (Auto) (0.0-1.0) % Sodium 130 L D (136-145) mmol/L Potassium 5.0 (3.5-5.1) mmol/L Chloride 94 L (98-107) mmol/L Carbon Dioxide 25 (21-32) mmol/L Anion Gap 16.0 H (7-13) mEq/L BUN 75 H D (7-18) mg/dL Creatinine 3.85 H D (0.70-1.30) mg/dL Est Cr Clr Drug Dosing 19.56 mL/min Estimated GFR (MDRD) 16 BUN/Creatinine Ratio 19.5 (No establ ref range) Glucose 198 H (74-99) mg/dL POC Glucose 249 H (70-105) mg/dl Lactic Acid 0.7 (0.4-2.0) mmol/L Calcium 9.2 (8.5-10.1) mg/dL Magnesium 2.1 (1.8-2.4) mg/dL Total Bilirubin 0.2 (0.2-1.0) mg/dL AST 17 (15-37) U/L ALT 15 L (16-63) U/L Alkaline Phosphatase 194 H (46-116) U/L Troponin I < 0.017 (0.000-0.056) ng/mL Total Protein 9.0 H (6.4-8.2) g/dL Albumin 3.0 L (3.4-5.0) g/dL Globulin 6.0 Albumin/Globulin Ratio 0.50 Urine Color (YELLOW) Urine Appearance (CLEAR) Urine pH (5.0-9.0) Ur Specific [place] (1.005-1.030) Urine Protein (NEGATIVE) Urine Glucose (UA) (NEGATIVE) Urine Ketones (NEGATIVE) Urine Occult Blood (NEGATIVE) Urine Nitrite (NEGATIVE) Urine Bilirubin (NEGATIVE) Urine Urobilinogen (0.2-1.0) mg/dL Ur Leukocyte Esterase (NEGATIVE) Urine RBC /HPF Urine WBC (0-5/HPF) /HPF Ur Epithelial Cells (NOT SEEN) /HPF Amorphous Sediment (NOT SEEN) /HPF Urine Bacteria (0-FEW/HPF) /HPF Fine Granular Casts (NOT SEEN) /LPF Urine Mucus (NOT SEEN) /LPF Ur Random Creatinine (No establ ref range) mg/dL Ur Random Sodium (No establ.ref range) mmol/L Ketones Negative Influenza Type A RNA (NEGATIVE) Influenza Type B RNA (NEGATIVE) SARS-CoV-2 RNA (GABRIELLA) (NEGATIVE) 05/27/20 05/27/20 05/27/20 Range/Units 21:30 21:30 21:30 WBC (5.0-10.0) 10^3/uL RBC (4.6-6.2) 10^6/uL Hgb (14.0-18.0) g/dL Hct (40.0-54.0) % MCV (80-100) fL MCH (27.0-34.0) pg MCHC (33.0-35.0) g/dL Plt Count (150-450) 10^3/uL Neut % (Auto) (42.2-75.2) % Lymph % (Auto) (20.5-50.1) % [place] % (Auto) (2-8) % Eos % (Auto) (1.0-3.0) % Baso % (Auto) (0.0-1.0) % Sodium (136-145) mmol/L Potassium (3.5-5.1) mmol/L Chloride (98-107) mmol/L Carbon Dioxide (21-32) mmol/L Anion Gap (7-13) mEq/L BUN (7-18) mg/dL Creatinine (0.70-1.30) mg/dL Est Cr Clr Drug Dosing mL/min Estimated GFR (MDRD) BUN/Creatinine Ratio (No establ ref range) Glucose (74-99) mg/dL POC Glucose (70-105) mg/dl Lactic Acid (0.4-2.0) mmol/L Calcium (8.5-10.1) mg/dL Magnesium (1.8-2.4) mg/dL Total Bilirubin (0.2-1.0) mg/dL AST (15-37) U/L ALT (16-63) U/L Alkaline Phosphatase (46-116) U/L Troponin I (0.000-0.056) ng/mL Total Protein (6.4-8.2) g/dL Albumin (3.4-5.0) g/dL Globulin Albumin/Globulin Ratio Urine Color Yellow (YELLOW) Urine Appearance Clear (CLEAR) Urine pH 5.5 (5.0-9.0) Ur Specific [place] 1.015 (1.005-1.030) Urine Protein 30 H (NEGATIVE) Urine Glucose (UA) Negative (NEGATIVE) Urine Ketones Negative (NEGATIVE) Urine Occult Blood Negative (NEGATIVE) Urine Nitrite Negative (NEGATIVE) Urine Bilirubin Negative (NEGATIVE) Urine Urobilinogen 0.2 (0.2-1.0) mg/dL Ur Leukocyte Esterase Negative (NEGATIVE) Urine RBC Not seen /HPF Urine WBC 0-5 (0-5/HPF) /HPF Ur Epithelial Cells Few (NOT SEEN) /HPF Amorphous Sediment Few (NOT SEEN) /HPF Urine Bacteria Few (0-FEW/HPF) /HPF Fine Granular Casts Occasional H (NOT SEEN) /LPF Urine Mucus Rare (NOT SEEN) /LPF Ur Random Creatinine 100.53 (No establ ref range) mg/dL Ur Random Sodium 55 (No establ.ref range) mmol/L Ketones Influenza Type A RNA (NEGATIVE) Influenza Type B RNA (NEGATIVE) SARS-CoV-2 RNA (GABRIELLA) (NEGATIVE) 05/28/20 05/28/20 Range/Units 05:56 07:43 WBC (5.0-10.0) 10^3/uL RBC (4.6-6.2) 10^6/uL Hgb (14.0-18.0) g/dL Hct (40.0-54.0) % MCV (80-100) fL MCH (27.0-34.0) pg MCHC (33.0-35.0) g/dL Plt Count (150-450) 10^3/uL Neut % (Auto) (42.2-75.2) % Lymph % (Auto) (20.5-50.1) % [place] % (Auto) (2-8) % Eos % (Auto) (1.0-3.0) % Baso % (Auto) (0.0-1.0) % Sodium 136 (136-145) mmol/L Potassium 5.5 H (3.5-5.1) mmol/L Chloride 102 (98-107) mmol/L Carbon Dioxide 25 (21-32) mmol/L Anion Gap 14.5 H (7-13) mEq/L BUN 66 H (7-18) mg/dL Creatinine 3.07 H (0.70-1.30) mg/dL Est Cr Clr Drug Dosing 25.42 mL/min Estimated GFR (MDRD) 21 BUN/Creatinine Ratio (No establ ref range) Glucose 73 L (74-99) mg/dL POC Glucose 64 L (70-105) mg/dl Lactic Acid (0.4-2.0) mmol/L Calcium 8.9 (8.5-10.1) mg/dL Magnesium (1.8-2.4) mg/dL Total Bilirubin (0.2-1.0) mg/dL AST (15-37) U/L ALT (16-63) U/L Alkaline Phosphatase (46-116) U/L Troponin I (0.000-0.056) ng/mL Total Protein (6.4-8.2) g/dL Albumin (3.4-5.0) g/dL Globulin Albumin/Globulin Ratio Urine Color (YELLOW) Urine Appearance (CLEAR) Urine pH (5.0-9.0) Ur Specific [place] (1.005-1.030) Urine Protein (NEGATIVE) Urine Glucose (UA) (NEGATIVE) Urine Ketones (NEGATIVE) Urine Occult Blood (NEGATIVE) Urine Nitrite (NEGATIVE) Urine Bilirubin (NEGATIVE) Urine Urobilinogen (0.2-1.0) mg/dL Ur Leukocyte Esterase (NEGATIVE) Urine RBC /HPF Urine WBC (0-5/HPF) /HPF Ur Epithelial Cells (NOT SEEN) /HPF Amorphous Sediment (NOT SEEN) /HPF Urine Bacteria (0-FEW/HPF) /HPF Fine Granular Casts (NOT SEEN) /LPF Urine Mucus (NOT SEEN) /LPF Ur Random Creatinine (No establ ref range) mg/dL Ur Random Sodium (No establ.ref range) mmol/L Ketones Influenza Type A RNA (NEGATIVE) Influenza Type B RNA (NEGATIVE) SARS-CoV-2 RNA (GABRIELLA) (NEGATIVE) Med Orders - Current: Current Medications Acetaminophen (Tylenol Extra Strength) 1,000 mg PO Q6H PRN PRN Reason: Pain/Fever Atorvastatin Calcium (Lipitor) 10 mg PO BEDTIME [facility] Last Admin: 05/27/20 21:19 Dose: 10 mg Documented by: Duloxetine HCl (Cymbalta) 60 mg PO DAILY [facility] Gabapentin (Neurontin) 600 mg PO TID [facility] Last Admin: 05/27/20 21:18 Dose: 600 mg Documented by: Lactated Ringer's (Ringers, Lactated) 1,000 mls @ 125 mls/hr IV ASDIRECTED [facility] Insulin Glargine (Lantus) 30 unit SUBCUT BEDTIME [facility] Last Admin: 05/27/20 21:18 Dose: 30 units Documented by: Insulin Human Lispro (Humalog) 5 unit SUBCUT TIDMEALS [facility] Last Admin: 05/28/20 08:20 Dose: 5 units Documented by: Metoprolol Succinate (Toprol Xl) 50 mg PO DAILY [facility] Mometasone Furoate/Formoterol Fumar (Dulera 200-5 Mcg) 0 puff IH BID [facility] Last Admin: 05/27/20 21:17 Dose: 2 inhalation Documented by: Omeprazole (Omeprazole) 20 mg PO BIDAC [facility] Last Admin: 05/28/20 05:49 Dose: 20 mg Documented by: Paroxetine HCl (Paxil) 20 mg PO DAILY [facility] Quetiapine Fumarate (Seroquel) 25 mg PO BID [facility] Last Admin: 05/27/20 21:19 Dose: 25 mg Documented by: Discontinued Medications Sodium Chloride (Normal Saline) 1,000 mls @ 500 mls/hr IV .BOLUS ONE Stop: 05/27/20 17:38 Last Admin: 05/27/20 15:57 Dose: 500 mls/hr Documented by: Sodium Chloride (Normal Saline) 1,000 mls @ 125 mls/hr IV ASDIRECTED [facility] Last Admin: 05/28/20 04:06 Dose: 125 mls/hr Documented by: - Exam General: Alert, Oriented HEENT: EOMI Neck: Trachea Midline Lungs: Clear to Auscultation, Normal Respiratory Effort Cardiovascular: Regular Rate GI/Abdominal Exam: Normal Bowel Sounds Extremities: Normal Inspection Skin: Warm, Dry Wound/Incisions: No Drainage Neurological: No New Focal Deficit Psy/Mental Status: Alert, Normal Affect, Normal Mood Sepsis Event Note - Evaluation Sepsis Screening Result: No Definite Risk - Focused Exam Vital Signs: Vital Signs Temp Pulse Resp BP BP Pulse Ox 05/28/20 07:52 98.5 F 44 L 14 108/60 98 05/28/20 04:00 99 F 86 16 106/66 99 05/28/20 00:00 99 F 80 16 96/57 L 99 - Problem List & Annotations (1) Acute renal failure SNOMED Code(s): 23985043 Code(s): N17.9 - ACUTE KIDNEY FAILURE, UNSPECIFIED Status: Acute Current Visit: Yes Qualifiers: Acute renal failure type: unspecified Qualified Code(s): N17.9 - Acute kidney failure, unspecified (2) Dehydration SNOMED Code(s): 64988145 Code(s): E86.0 - DEHYDRATION Status: Acute Current Visit: Yes - Problem List Review Problem List Initiated/Reviewed/Updated: Yes - My Orders Last 24 Hours: My Active Orders 05/27/20 19:31 Acetaminophen [Tylenol Extra Strength] 1,000 mg PO Q6H PRN 05/27/20 19:35 Communication Order [RC] 05/27/20 20:05 Activity as Tolerated [RC] .Routine Code Status [Resuscitation Status] Routine 05/27/20 20:06 Vital Signs [RC] 00,04,08,12,16,20 05/27/20 21:00 Blood Glucose Check, Bedside [RC] QIDACANDBED Gabapentin [Neurontin] 600 mg PO TID Insulin Glarg,Human.Rec.Analog [LantUS] 30 unit SUBCUT BEDTIME Mometasone/Formoterol [Dulera 200-5 MCG] 0 puff IH BID Omeprazole 20 mg PO BIDAC QUEtiapine [SEROqueL] 25 mg PO BID atorvaSTATin [Lipitor] 10 mg PO BEDTIME 05/28/20 Breakfast Consistent Carbohydrate Diet [DIET] 05/28/20 08:00 Insulin Lispro [HumaLOG] 5 unit SUBCUT TIDMEALS 05/28/20 09:00 DULoxetine [Cymbalta] 60 mg PO DAILY Lactated Ringers [Ringers, Lactated] 1,000 ml IV ASDIRECTED Metoprolol Succinate [Toprol XL] 50 mg PO DAILY PARoxetine [Paxil] 20 mg PO DAILY 05/28/20 14:00 Retroperitoneal Comp [US] Routine - Plan Plan:: - ANGEL - Dehydration Patient with increased in creatinine from 1.45 baseline to 3.85 Likely prerenal due to patient having reduced p.o. intake Patient status post IV fluids in the ER Continue LR at 125 an hour Holding home Lasix, lisinopril, metolazone Will continue to trend creatinine, improving Urine sodium, urine creatinine ordered Renal ultrasound ordered Bilateral foot wounds/ulcers Continue wound care Conitnue home medications
[2020-05-28] MEDS: Lactated Ringers 1,000 ML IV SCH ×2 (09:46→18:12)
[2020-05-28] MEDS: Gabapentin 300 MG Cap PO SCH ×3 (09:50→21:08)
[2020-05-28] MEDS: Metoprolol Succinate 50 MG Tab.ER PO SCH (09:50)
[2020-05-28] MEDS: DULoxetine 30 MG Cap PO SCH (09:52)
[2020-05-28] MEDS: QUEtiapine 25 MG Tab PO SCH ×2 (09:52→21:14)
[2020-05-28] MEDS: PARoxetine 20 MG Tab PO SCH (09:52)
[2020-05-28] MEDS: Formoterol/Mometasone 200-5 MCG 8.8 GM Inhaler IH SCH ×2 (11:23→21:09)
--- NOTE | 2020-05-28 12:30 | US ---
EXAMINATION: Retroperitoneal Comp SEX: Male AGE: 54 years CLINICAL HISTORY: 54-year-old male with acute kidney injury (serum creatinine greater than 3). Interpretation: 1. Normal reniform size, axis and configuration, bilaterally. No cortical scarring. 2. No sign of cystic or solid renal cortical mass lesion. 3. No nephrolithiasis or signs of obstructive uropathy i.e. no pyelocaliectasis. 4. No perinephric fluid collections. No ureterectasis. 5. Symmetrically distended urinary bladder with smooth mucosal surface. No polypoid mass or dependent intraluminal echogenic "shadowing" urinary bladder stones. CONCLUSION: Negative exam.
[2020-05-28] MEDS: Insulin Glarg,Human.Rec.Analog 100 Unit/ML SUBCUT SCH (21:06)
[2020-05-28] MEDS: atorvaSTATin 10 MG Tab PO SCH (21:08)
[2020-05-29] MEDS: Lactated Ringers 1,000 ML IV SCH (01:02)
[2020-05-29] MEDS: Omeprazole 20 MG Cap.CR PO SCH (05:12)
[2020-05-29 06:41] LABS: ANION GAP 12.1 mEq/L (7-13)
[2020-05-29 08:27] VITALS: BP 107/58; PULSE 75
[2020-05-29] MEDS: Insulin Lispro 100 Units/ML 3 ML Vial SUBCUT SCH ×4 (09:28→13:08)
[2020-05-29] MEDS: Metoprolol Succinate 50 MG Tab.ER PO SCH (09:29)
[2020-05-29] MEDS: DULoxetine 30 MG Cap PO SCH (09:29)
[2020-05-29] MEDS: QUEtiapine 25 MG Tab PO SCH (09:29)
[2020-05-29] MEDS: Gabapentin 300 MG Cap PO SCH (09:29)
[2020-05-29] MEDS: PARoxetine 20 MG Tab PO SCH (09:30)
[2020-05-29] MEDS: Formoterol/Mometasone 200-5 MCG 8.8 GM Inhaler IH SCH (09:31)
--- NOTE | 2020-05-29 09:44 | PCM.DCSUM1 ---
Discharge Summary - Hospital Course Free Text/Narrative:: Patient is a 54-year-old male who presented due to generalized weakness and was found to have ANGEL on CKD with creatinine of 3.85 up from 1.45. This was likely due to overdiuresis, poor oral fluid intake in the context of ACEi (Lisinopril), Lasix, metolazone and Bactrim use. Bactrim was due to his leg ulcers. His renal function improved with IVF. At discharge, his Lisinopril, metolazone and Bactrim were discontinued. His Lasix dose was changed from 40 mg to 20 mg daily and he was started on Doxycycline 100 mg BID for 5 days. He will follow up with his PCP within 1 week and monitor his blood pressure. Discharge diagnosis -ANGEL on CKD -Dehydration Diagnosis: Stroke: No - Discharge Data Discharge Date: 05/29/20 Discharge Disposition: Home, Self-Care Condition: Good - Referral to Home Health Date of Face to Face Encounter: 05/29/20 Primary Care Physician: Fransisco Iglesias [employer] - Discharge Plan *PRESCRIPTION DRUG MONITORING PROGRAM REVIEWED*: Not Applicable *COPY OF PRESCRIPTION DRUG MONITORING REPORT IN PATIENT FOREST: Not Applicable Prescriptions/Med Rec: Furosemide [Lasix] 20 mg PO DAILY #30 tab Doxycycline [Vibramycin] 100 mg PO BID #10 cap Home Medications: Home Meds Fluticasone/Salmeterol [Advair 250-50] 1 puff INH BID 01/29/15 [History] Metoprolol Succinate [Toprol XL] 50 mg PO DAILY 01/29/15 [History] Acetaminophen [Tylenol] 1,000 mg PO Q6HR PRN 05/27/20 [History] Cyanocobalamin (Vitamin B-12) [Cyanocobalamin Injection] 1 ml INJECT ASDIRECTED 05/27/20 [History] DULoxetine [Cymbalta] 60 mg PO DAILY 05/27/20 [History] Gabapentin [Neurontin] 600 mg PO TID 05/27/20 [History] Insulin Aspart [NovoLOG] 6 units SUBCUT TIDMEALS 05/27/20 [History] Insulin Glargine,Hum.Rec.Anlog [Basaglar Kwikpen U-100] 30 unit SQ BEDTIME 05/27/20 [History] PARoxetine [Paxil] 20 mg PO DAILY 05/27/20 [History] Pantoprazole Sodium [Protonix] 20 mg PO BID 05/27/20 [History] QUEtiapine [SEROquel] 25 mg PO BID 05/27/20 [History] atorvaSTATin [Lipitor] 10 mg PO BEDTIME 05/27/20 [History] oxyCODONE 5 mg PO Q8HR PRN 05/27/20 [History] Doxycycline [Vibramycin] 100 mg PO BID #10 cap 05/29/20 [Rx] Furosemide [Lasix] 20 mg PO DAILY #30 tab 05/29/20 [Rx] Oxygen Therapy Mode: Room Air Referrals: Fransisco Iglesias NP [Primary Care Provider] - - Discharge Summary/Plan Comment DC Time >30 min.: Yes - General Info Date of Service: 05/29/20 Admission Dx/Problem (Free Text: Admission Diagnosis/Problem Admission Diagnosis/Problem Dehydration, ANGEL Subjective Update: Overnight patient doing well no complaints at this time. Functional Status: Reports: Pain Controlled - Review of Systems General: Reports: No Symptoms HEENT: Reports: No Symptoms Pulmonary: Reports: No Symptoms Cardiovascular: Reports: No Symptoms Gastrointestinal: Reports: No Symptoms Genitourinary: Reports: No Symptoms Musculoskeletal: Reports: No Symptoms Skin: Reports: No Symptoms Neurological: Reports: No Symptoms Psychiatric: Reports: No Symptoms - Patient Data Vitals - Most Recent: Last Vital Signs Temp 98.2 F 05/29/20 08:00 Pulse 75 05/29/20 09:29 Resp 18 05/29/20 08:00 BP 107/58 L 05/29/20 09:29 Pulse Ox 98 05/29/20 08:00 Weight - Most Recent: 180 lb 9.6 oz I&O - Last 24 hours: Intake & Output 05/28/20 05/29/20 05/29/20 22:59 06:59 14:59 Intake Total 880 1582 Output Total 1550 2300 Balance -808 -037 Lab Results - Last 24 hrs: Laboratory Results - last 24 hr 05/28/20 05/28/20 05/28/20 Range/Units 11:25 16:44 20:54 Sodium (136-145) mmol/L Potassium (3.5-5.1) mmol/L Chloride (98-107) mmol/L Carbon Dioxide (21-32) mmol/L Anion Gap (7-13) mEq/L BUN (7-18) mg/dL Creatinine (0.70-1.30) mg/dL Est Cr Clr Drug Dosing mL/min Estimated GFR (MDRD) Glucose (74-99) mg/dL POC Glucose 187 H 362 H 418 H* (70-105) mg/dl Calcium (8.5-10.1) mg/dL 05/29/20 05/29/20 Range/Units 06:20 07:50 Sodium 135 L (136-145) mmol/L Potassium 5.1 (3.5-5.1) mmol/L Chloride 99 (98-107) mmol/L Carbon Dioxide 29 (21-32) mmol/L Anion Gap 12.1 (7-13) mEq/L BUN 39 H D (7-18) mg/dL Creatinine 1.98 H (0.70-1.30) mg/dL Est Cr Clr Drug Dosing 39.41 mL/min Estimated GFR (MDRD) 35 Glucose 166 H (74-99) mg/dL POC Glucose 176 H (70-105) mg/dl Calcium 8.9 (8.5-10.1) mg/dL [facility] Results - Last 24 hrs: Microbiology 05/27/20 14:40 Aerobic Blood Culture - Preliminary Blood - Arm, Right NO GROWTH AFTER 1 DAY Anaerobic Blood Culture - Preliminary NO GROWTH AFTER 1 DAY Med Orders - Current: Current Medications Acetaminophen (Tylenol Extra Strength) 1,000 mg PO Q6H PRN PRN Reason: Pain/Fever Atorvastatin Calcium (Lipitor) 10 mg PO BEDTIME [facility] Last Admin: 05/28/20 21:08 Dose: 10 mg Documented by: Duloxetine HCl (Cymbalta) 60 mg PO DAILY [facility] Last Admin: 05/29/20 09:29 Dose: 60 mg Documented by: Gabapentin (Neurontin) 600 mg PO TID [facility] Last Admin: 05/29/20 09:29 Dose: 600 mg Documented by: Lactated Ringer's (Ringers, Lactated) 1,000 mls @ 125 mls/hr IV ASDIRECTED [facility] Last Admin: 05/29/20 01:02 Dose: 125 mls/hr Documented by: Insulin Glargine (Lantus) 30 unit SUBCUT BEDTIME [facility] Last Admin: 05/28/20 21:06 Dose: 30 units Documented by: Insulin Human Lispro (Humalog) 5 unit SUBCUT TIDMEALS [facility] Last Admin: 05/29/20 09:28 Dose: 5 units Documented by: Insulin Human Lispro (Humalog) 0 unit SUBCUT WITHMEALSANDBED [facility]; Protocol Last Admin: 05/29/20 09:31 Dose: Not Given Documented by: Metoprolol Succinate (Toprol Xl) 50 mg PO DAILY [facility] Last Admin: 05/29/20 09:29 Dose: 50 mg Documented by: Mometasone Furoate/Formoterol Fumar (Dulera 200-5 Mcg) 0 puff IH BID [facility] Last Admin: 05/29/20 09:31 Dose: 2 inhalation Documented by: Omeprazole (Omeprazole) 20 mg PO BIDAC [facility] Last Admin: 05/29/20 05:12 Dose: 20 mg Documented by: Paroxetine HCl (Paxil) 20 mg PO DAILY [facility] Last Admin: 05/29/20 09:30 Dose: 20 mg Documented by: Quetiapine Fumarate (Seroquel) 25 mg PO BID [facility] Last Admin: 05/29/20 09:29 Dose: 25 mg Documented by: Discontinued Medications Sodium Chloride (Normal Saline) 1,000 mls @ 500 mls/hr IV .BOLUS ONE Stop: 05/27/20 17:38 Last Admin: 05/27/20 15:57 Dose: 500 mls/hr Documented by: Sodium Chloride (Normal Saline) 1,000 mls @ 125 mls/hr IV ASDIRECTED [facility] Last Admin: 05/28/20 04:06 Dose: 125 mls/hr Documented by: - Exam General: Reports: Alert, Oriented HEENT: Reports: Pupils Equal, Pupils Reactive, EOMI, Mucous Membr. Moist/[place] Neck: Reports: Supple Lungs: Reports: Clear to Auscultation, Normal Respiratory Effort Cardiovascular: Reports: Regular Rate, Regular Rhythm GI/Abdominal Exam: Normal Bowel Sounds, Soft, Non-Tender, No Organomegaly, No Distention, No Abnormal Bruit, No Mass, Pelvis Stable Back Exam: Reports: Normal Inspection, Full Range of Motion Extremities: Normal Inspection, Normal Range of Motion, Non-Tender, No Pedal Edema, Normal Capillary Refill Skin: Reports: Warm, Dry Wound/Incisions: Reports: Healing Well Neurological: Reports: No New Focal Deficit Psy/Mental Status: Reports: Alert, Normal Affect, Normal Mood
== END 2020-05-29 13:00 | disposition home or self-care (01) | DRG 684 ==
LOC: DL.ED 14:16 → DL.MS 16:51 → DL.ED 17:00
PROVIDERS: ADMIT Internal Medicine; ATTEND Internal Medicine
DX: N17.9 Acute kidney failure, unspecified (principal); N18.9 Chronic kidney disease, unspecified; E86.0 Dehydration; H54.7 Unspecified visual loss; E78.00 Pure hypercholesterolemia, unspecified; J44.9 Chronic obstructive pulmonary disease, unspecified; I10 Essential (primary) hypertension; Z87.891 Personal history of nicotine dependence; K21.9 Gastro-esophageal reflux disease without esophagitis; E11.21 Type 2 diabetes mellitus with diabetic nephropathy; K59.09 Other constipation; M19.90 Unspecified osteoarthritis, unspecified site; F17.200 Nicotine dependence, unspecified, uncomplicated; L97.529 Non-pressure chronic ulcer of other part of left foot with unspecified severity; L97.519 Non-pressure chronic ulcer of other part of right foot with unspecified severity; G89.29 Other chronic pain; M54.9 Dorsalgia, unspecified; F32.9 Major depressive disorder, single episode, unspecified; E11.40 Type 2 diabetes mellitus with diabetic neuropathy, unspecified; Z88.1 Allergy status to other antibiotic agents; Z79.4 Long term (current) use of insulin; Z79.899 Other long term (current) drug therapy; Z20.822 Contact with and (suspected) exposure to COVID-19
CPT/HCPCS: 0240U; 36415; 71045; 76770; 80048; 80053; 81001; 82009; 82570; 82962; 83605; 83735; 84300; 84484; 85025; 87040; 93005; 99284-25; A9270-GY; J1815-GY; J7030; J7120

== ENCOUNTER 2023-07-18 10:16 | Inpatient (IN) | payer MEDICARE, MEDICAID ==
[2023-07-18] MEDS: Lidocaine 2% with EPINEPHrine 1:200,000 20 ML SDV INJECT ONE (11:06)
[2023-07-18] MEDS: Lidocaine/Prilocaine 2.5-2.5% Crm 5 GM Tube TOP ONE ×2 (11:07→11:10)
[2023-07-18] MEDS: Sodium Chloride 0.9% 10 ML Syringe FLUSH PRN (11:09)
[2023-07-18] MEDS: Sodium Chloride 0.9% 1,000 ML IV ONE ×2 (11:09→15:24)
[2023-07-18 11:11] LABS: HEMATOCRIT 41.9 % (40.0-54.0); HEMOGLOBIN 15.2 g/dL (14.0-18.0); MEAN CORPUSCULAR HEMOGLOBIN 28.5 pg (27.0-34.0); MEAN CORPUSCULAR HGB CONC 36.3 g/dL (33.0-35.0); MEAN CORPUSCULAR VOLUME 78.6 fL (80-100); PLATELET COUNT,PLT 227 10^3/uL (150-450); RED BLOOD CELL COUNT 5.33 10^6/uL (4.6-6.2)
[2023-07-18 11:32] LABS: BASOPHILS PERCENT AUTO 0.4 % (0.0-1.0); EOSINOPHILS PERCENT AUTO 0.5 % (1.0-3.0); MONOCYTES PERCENT AUTO 6.3 % (2-8); NEUTROPHILS PERCENT AUTO 79.8 % (42.2-75.2)
[2023-07-18 11:52] LABS: ALBUMIN 3.1 g/dL (3.4-5.0); ANION GAP 18.8 mEq/L (7-13); BILIRUBIN TOTAL 0.5 mg/dL (0.2-1.0); BUN/CREATININE RATIO 18.3 (No establ ref range); CALCIUM 9.6 mg/dL (8.5-10.1); CREATININE 1.86 mg/dL (0.70-1.30); EST CRCL DRUG DOSING (CG) 40.47 mL/min; POTASSIUM,K 3.8 mmol/L (3.5-5.1); PROTEIN TOTAL,TP 8.6 g/dL (6.4-8.2)
[2023-07-18 11:53] LABS: A/G RATIO 0.56; BAND PERCENT MAN 2 %; EOSINOPHILS PERCENT MAN 1 % (1-3); LYMPHOCYTES PERCENT MAN 14 % (20-50); MONOCYTES PERCENT MAN 7 % (2-8); SEG NEUTROPHILS PERCENT MAN 74 % (42-75)
[2023-07-18 11:54] LABS: MYELOCYTE PERCENT MAN 2
[2023-07-18 12:19] LABS: APPEARANCE,URINE CLEAR (CLEAR); BILIRUBIN,URINE NEGATIVE (NEGATIVE); COLOR,URINE YELLOW (YELLOW); GLUCOSE,URINE 500 (NEGATIVE); KETONES,URINE 15 (NEGATIVE); LEUKOCYTE ESTERASE,URINE NEGATIVE (NEGATIVE); NITRITE,URINE NEGATIVE (NEGATIVE); OCCULT BLOOD,URINE MODERATE (NEGATIVE); PH,URINE 5.5 (5.0-9.0); PROTEIN,URINE >=300 (NEGATIVE); UROBILINOGEN,URINE 0.2 mg/dL (0.2-1.0)
[2023-07-18] MEDS ORDERED: Glucagon,Human Recombinant 1 MG Vial IM PRN ×2 (12:22→20:34)
[2023-07-18] MEDS ORDERED: 50% Dextrose in Water 50 ML Syringe IVPUSH PRN ×2 (12:22→20:34)
[2023-07-18 12:24] LABS: AMPHETAMINES,URINE NEGATIVE (NEGATIVE); BARBITURATES,URINE NEGATIVE (NEGATIVE); BENZODIAZEPINE,URINE NEGATIVE (NEGATIVE); MDMA (ECSTASY), URINE NEGATIVE (NEGATIVE); METHADONE,URINE NEGATIVE (NEGATIVE); METHAMPHETAMINES,URINE POSITIVE (NEGATIVE); OPIATES,URINE NEGATIVE (NEGATIVE); OXYCODONE,URINE NEGATIVE (NEGATIVE); PHENCYCLIDINE,URINE NEGATIVE (NEGATIVE); TCA,URINE POSITIVE (NEGATIVE)
[2023-07-18 12:43] LABS: EPITHELIAL CELLS,URINE FEW /HPF (NOT SEEN); RBC,URINE 0-5 /HPF (0-5); WBC,URINE 0-5 /HPF (0-5/HPF)
[2023-07-18 12:44] LABS: AMORPHOUS SEDIMENT,URINE MODERATE /HPF (NOT SEEN); BACTERIA,URINE FEW /HPF (0-FEW/HPF); YEAST,URINE FEW /HPF (NOT SEEN)
[2023-07-18] MEDS: NS with KCl 40mEq 1,000 ML IV SCH (12:45)
[2023-07-18] MEDS: Insulin Regular, Human 100 Units/ML 3 ML Vial IV ONE (12:46)
[2023-07-18] MEDS: cefTRIAXone 1 GM Vial IVPUSH ONE (13:13)
[2023-07-18] MEDS: Ondansetron 4 MG/2 ML SDV IVPUSH ONE (13:29)
[2023-07-18] MEDS ORDERED: Polyethylene Glycol 3350 Powder 17 GM Packet PO PRN (14:27)
[2023-07-18] MEDS ORDERED: Albuterol/Ipratropium 3.0-0.5 MG/3 ML Neb Soln NEB PRN (14:27)
[2023-07-18] MEDS ORDERED: Acetaminophen/oxyCODONE 325-5 MG Tab PO PRN (14:27)
[2023-07-18] MEDS ORDERED: Sennosides/Docusate Sodium 50-8.6 MG Tab PO PRN (14:27)
[2023-07-18] MEDS ORDERED: Metoprolol Tartrate 5 MG/5 ML SDV IVPUSH PRN (14:27)
[2023-07-18] MEDS ORDERED: Magnesium Hydroxide 400 MG/5 ML Susp 30 ML Cup PO PRN (14:27)
[2023-07-18] MEDS ORDERED: hydrALAZINE 20 MG/ML SDV IVPUSH PRN (14:27)
[2023-07-18] MEDS ORDERED: Sodium Chloride 0.9% 250 ML IV SCH (14:45)
[2023-07-18] MEDS ORDERED: Acetaminophen 500 MG Tab PO PRN (15:41)
[2023-07-18] MEDS: Empagliflozin 25 MG Tab PO STA (16:00)
[2023-07-18] MEDS: Calcium Carbonate 500 MG Tab.Chew PO SCH (17:18)
[2023-07-18] MEDS: Fluconazole 100 MG Tab PO ONE (17:18)
[2023-07-18] MEDS: Insulin Lispro 100 Units/ML 3 ML Vial SUBCUT SCH (17:18)
[2023-07-18] MEDS: Patient's Own Medication 1 Each TOP SCH (17:19)
[2023-07-18] MEDS: oxyCODONE 5 MG Tab PO PRN (17:23)
[2023-07-18 17:48] LABS: LACTIC ACID 1.6 mmol/L (0.4-2.0)
[2023-07-18] MEDS: Insulin Glarg,Human.Rec.Analog 100 Unit/ML 10 ML Vial SUBCUT SCH (18:33)
[2023-07-18] MEDS: Insulin Glarg,Human.Rec.Analog 100 Unit/ML 10 ML Vial ONE (18:38)
[2023-07-18] MEDS: Gabapentin 300 MG Cap PO SCH (20:49)
[2023-07-18] MEDS: atorvaSTATin 10 MG Tab PO SCH (20:49)
[2023-07-18] MEDS: Apixaban 5 MG Tab PO SCH (20:49)
[2023-07-18] MEDS: Saccharomyces Boulardii (Probiotic) 250 MG Cap PO SCH (20:49)
[2023-07-18] MEDS: Amitriptyline 10 MG Tab PO SCH (20:49)
[2023-07-18] MEDS: Amitriptyline 25 MG Tab PO SCH (20:49)
[2023-07-18] MEDS: Bacitracin/Neomycin/Polymyxin B Oint 28.4 GM Tube TOP SCH (20:50)
[2023-07-18] MEDS ORDERED: Non-Formulary Medication 1 Each (Insulin Detemir [Levemir Flexpen] 100 UNIT/ML Insuln.Pen) SUBCUT SCH (21:00)
[2023-07-18] MEDS ORDERED: Non-Formulary Medication 1 Each (Duloxetine [Cymbalta] 60 MG Cap) PO SCH (21:00)
[2023-07-18] MEDS ORDERED: Insulin Regular, Human 100 Units/ML 3 ML Vial IV ONE (21:00)
[2023-07-18] MEDS: Insulin Regular, Human 100 Units/ML 3 ML Vial SUBCUT ONE (21:01)
[2023-07-18] MEDS: Insulin NPH HUM/REG Insulin HM 100 UNIT/ML 3 ML Vial SQ ONE (21:24)
[2023-07-19 06:54] LABS: ALBUMIN 2.2 g/dL (3.4-5.0); ANION GAP 10.4 mEq/L (7-13); BILIRUBIN TOTAL 0.2 mg/dL (0.2-1.0); BUN/CREATININE RATIO 17.4 (No establ ref range); C-REACTIVE PROTEIN 7.72 ng/dL (<=0.50); CALCIUM 8.1 mg/dL (8.5-10.1); CREATININE 1.49 mg/dL (0.70-1.30); EST CRCL DRUG DOSING (CG) 50.52 mL/min; MAGNESIUM 1.7 mg/dL (1.8-2.4); POTASSIUM,K 4.4 mmol/L (3.5-5.1); PROTEIN TOTAL,TP 6.3 g/dL (6.4-8.2)
[2023-07-19 06:59] LABS: BASOPHILS PERCENT AUTO 0.3 % (0.0-1.0); EOSINOPHILS PERCENT AUTO 1.8 % (1.0-3.0); HEMATOCRIT 33.6 % (40.0-54.0); HEMOGLOBIN 11.7 g/dL (14.0-18.0); LYMPHOCYTES PERCENT AUTO 32.9 % (20.5-50.1); MEAN CORPUSCULAR HEMOGLOBIN 28.9 pg (27.0-34.0); MEAN CORPUSCULAR HGB CONC 34.8 g/dL (33.0-35.0); PLATELET COUNT,PLT 155 10^3/uL (150-450); RED BLOOD CELL COUNT 4.05 10^6/uL (4.6-6.2); WHITE BLOOD CELL COUNT,WBC 9.4 10^3/uL (5.0-10.0)
[2023-07-19 07:08] LABS: A/G RATIO 0.54
[2023-07-19] MEDS: Magnesium Sulfate/Water 2 GM in Premix Bag 1 BAG IV ONE (08:35)
[2023-07-19] MEDS: HYDROmorphone 0.5 MG/0.5 ML Syringe IVPUSH PRN (08:41)
[2023-07-19] MEDS ORDERED: Ergocalciferol (Vitamin D2) 1.25 MG Cap PO SCH (09:00)
[2023-07-19] MEDS ORDERED: LACTOBACILLUS COMBO NO 10 PO SCH (09:00)
[2023-07-19] MEDS: Ascorbic Acid 500 MG Tab PO SCH (09:03)
[2023-07-19] MEDS: Empagliflozin 25 MG Tab PO SCH (09:03)
[2023-07-19] MEDS: Pantoprazole 40 MG Tab.CR PO SCH (09:03)
[2023-07-19] MEDS: Lisinopril 5 MG Tab PO SCH (09:04)
[2023-07-19] MEDS: Fluconazole 100 MG Tab PO SCH (09:04)
[2023-07-19] MEDS: Metoprolol Succinate 25 MG Tab.ER PO SCH (09:05)
[2023-07-19] MEDS: Thiamine 100 MG Tab PO SCH (09:05)
[2023-07-19] MEDS: Bumetanide 1 MG Tab PO SCH (09:05)
[2023-07-19] MEDS: Insulin Glarg,Human.Rec.Analog 100 Unit/ML 10 ML Vial SUBCUT SCH (09:10)
[2023-07-19] MEDS: cefTRIAXone 2 GM Vial IVPUSH SCH (09:29)
[2023-07-19] MEDS: Finasteride 5 MG Tab PO SCH (10:56)
[2023-07-19] MEDS: Formoterol/Mometasone 100-5 MCG 8.8 GM Inhaler IH SCH (10:57)
[2023-07-19] MEDS: Ergocalciferol (Vitamin D2) 1.25 MG Cap PO SCH (10:57)
[2023-07-19] MEDS: Acetaminophen 325 MG Tab PO PRN (11:06)
[2023-07-19] MEDS: Calcium Carbonate 500 MG Tab.Chew PO ONE (13:26)
[2023-07-19] MEDS: Ondansetron 4 MG/2 ML SDV IVPUSH PRN (13:35)
[2023-07-20 06:54] LABS: ALBUMIN 2.5 g/dL (3.4-5.0); BILIRUBIN TOTAL 0.2 mg/dL (0.2-1.0); BUN/CREATININE RATIO 11.2 (No establ ref range); C-REACTIVE PROTEIN 4.24 ng/dL (<=0.50); CALCIUM 8.6 mg/dL (8.5-10.1); CREATININE 1.78 mg/dL (0.70-1.30); EST CRCL DRUG DOSING (CG) 42.29 mL/min; MAGNESIUM 2.1 mg/dL (1.8-2.4); PROTEIN TOTAL,TP 6.9 g/dL (6.4-8.2)
[2023-07-20 07:01] LABS: A/G RATIO 0.57
[2023-07-20 07:06] LABS: HEMATOCRIT 37.9 % (40.0-54.0); HEMOGLOBIN 13.1 g/dL (14.0-18.0); MEAN CORPUSCULAR HEMOGLOBIN 28.9 pg (27.0-34.0); MEAN CORPUSCULAR HGB CONC 34.6 g/dL (33.0-35.0); MEAN CORPUSCULAR VOLUME 83.5 fL (80-100); PLATELET COUNT,PLT 156 10^3/uL (150-450); RED BLOOD CELL COUNT 4.54 10^6/uL (4.6-6.2); WHITE BLOOD CELL COUNT,WBC 9.2 10^3/uL (5.0-10.0)
[2023-07-20 07:29] LABS: BASOPHILS PERCENT AUTO 0.4 % (0.0-1.0); EOSINOPHILS PERCENT AUTO 2.3 % (1.0-3.0); LYMPHOCYTES PERCENT AUTO 27.7 % (20.5-50.1); NEUTROPHILS PERCENT AUTO 63.6 % (42.2-75.2)
[2023-07-20 07:45] LABS: BAND PERCENT MAN 1 %; EOSINOPHILS PERCENT MAN 2 % (1-3); LYMPHOCYTES PERCENT MAN 30 % (20-50); MONOCYTES PERCENT MAN 5 % (2-8); SEG NEUTROPHILS PERCENT MAN 62 % (42-75)
[2023-07-20] MEDS: LORazepam 2 MG/ML SDV IVPUSH PRN (08:30)
[2023-07-20] MEDS: Flumazenil 0.1 MG/ML 5 ML MDV IVPUSH PRN (10:38)
[2023-07-20] MEDS: Naloxone 2 MG/2 ML Syringe IVPUSH PRN (11:05)
[2023-07-21] MEDS ORDERED: 50% Dextrose in Water 50 ML Syringe IVPUSH PRN (02:14)
[2023-07-21] MEDS ORDERED: Glucagon,Human Recombinant 1 MG Vial IM PRN (02:14)
[2023-07-21] MEDS: Insulin Lispro 100 Units/ML 3 ML Vial SUBCUT ONE (02:29)
[2023-07-21 06:41] LABS: BASOPHILS PERCENT AUTO 0.5 % (0.0-1.0); EOSINOPHILS PERCENT AUTO 2.8 % (1.0-3.0); HEMATOCRIT 37.7 % (40.0-54.0); HEMOGLOBIN 12.9 g/dL (14.0-18.0); LYMPHOCYTES PERCENT AUTO 28.5 % (20.5-50.1); MEAN CORPUSCULAR HEMOGLOBIN 28.5 pg (27.0-34.0); MEAN CORPUSCULAR HGB CONC 34.2 g/dL (33.0-35.0); MEAN CORPUSCULAR VOLUME 83.4 fL (80-100); MONOCYTES PERCENT AUTO 5.9 % (2-8); NEUTROPHILS PERCENT AUTO 62.3 % (42.2-75.2); PLATELET COUNT,PLT 195 10^3/uL (150-450); RED BLOOD CELL COUNT 4.52 10^6/uL (4.6-6.2)
[2023-07-21 06:47] LABS: ALBUMIN 2.4 g/dL (3.4-5.0); ANION GAP 11.8 mEq/L (7-13); BILIRUBIN TOTAL 0.1 mg/dL (0.2-1.0); BUN/CREATININE RATIO 10.6 (No establ ref range); C-REACTIVE PROTEIN 3.08 ng/dL (<=0.50); CALCIUM 8.6 mg/dL (8.5-10.1); CREATININE 1.88 mg/dL (0.70-1.30); EST CRCL DRUG DOSING (CG) 40.04 mL/min; MAGNESIUM 1.8 mg/dL (1.8-2.4); POTASSIUM,K 3.8 mmol/L (3.5-5.1); PROTEIN TOTAL,TP 6.7 g/dL (6.4-8.2)
[2023-07-21 06:50] LABS: WHITE BLOOD CELL COUNT,WBC 9.6 10^3/uL (5.0-10.0)
[2023-07-21 06:55] LABS: A/G RATIO 0.56
[2023-07-21] MEDS: Insulin Glarg,Human.Rec.Analog 100 Unit/ML 10 ML Vial SUBCUT SCH (09:08)
[2023-07-21] MEDS: Ketorolac 30 MG/ML SDV IVPUSH PRN (15:37)
[2023-07-22 06:51] LABS: HEMATOCRIT 32.4 % (40.0-54.0); HEMOGLOBIN 10.9 g/dL (14.0-18.0); MEAN CORPUSCULAR HEMOGLOBIN 28.5 pg (27.0-34.0); MEAN CORPUSCULAR HGB CONC 33.6 g/dL (33.0-35.0); MEAN CORPUSCULAR VOLUME 84.8 fL (80-100); PLATELET COUNT,PLT 174 10^3/uL (150-450); RED BLOOD CELL COUNT 3.82 10^6/uL (4.6-6.2); WHITE BLOOD CELL COUNT,WBC 8.2 10^3/uL (5.0-10.0)
[2023-07-22 07:11] LABS: BASOPHILS PERCENT AUTO 0.6 % (0.0-1.0); EOSINOPHILS PERCENT AUTO 2.4 % (1.0-3.0); LYMPHOCYTES PERCENT AUTO 30.6 % (20.5-50.1); MONOCYTES PERCENT AUTO 6.2 % (2-8); NEUTROPHILS PERCENT AUTO 60.2 % (42.2-75.2)
[2023-07-22 07:20] LABS: ALBUMIN 2.3 g/dL (3.4-5.0); ANION GAP 9.5 mEq/L (7-13); BILIRUBIN TOTAL 0.1 mg/dL (0.2-1.0); BUN/CREATININE RATIO 12.3 (No establ ref range); C-REACTIVE PROTEIN 2.15 ng/dL (<=0.50); CALCIUM 8.2 mg/dL (8.5-10.1); CREATININE 2.2 mg/dL (0.70-1.30); EST CRCL DRUG DOSING (CG) 34.22 mL/min; MAGNESIUM 1.6 mg/dL (1.8-2.4); POTASSIUM,K 4.5 mmol/L (3.5-5.1); PROTEIN TOTAL,TP 6.2 g/dL (6.4-8.2)
[2023-07-22 07:21] LABS: A/G RATIO 0.59
[2023-07-22 07:58] LABS: BAND PERCENT MAN 2 %; EOSINOPHILS PERCENT MAN 2 % (1-3); LYMPHOCYTES PERCENT MAN 35 % (20-50); MONOCYTES PERCENT MAN 4 % (2-8); SEG NEUTROPHILS PERCENT MAN 57 % (42-75)
[2023-07-25] MEDS: oxyCODONE 5 MG Tab PO SCH (13:25)
[2023-07-25] MEDS: Cephalexin 500 MG Cap PO SCH (13:28)
[2023-07-26 07:28] VITALS: BP 130/69; PULSE 93
[2023-07-26] MEDS: Ergocalciferol (Vitamin D2) 1.25 MG Cap PO SCH (10:14)
[2023-07-28] MEDS ORDERED: Cephalexin 500 MG Cap PO SCH (08:00)
== END 2023-07-26 11:53 | disposition critical access hospital (66) | DRG 638 ==
LOC: DL.ED 10:16 → DL.MS 13:23
PROVIDERS: ADMIT Internal Medicine; ATTEND Emergency Medicine
DX: E11.628 Type 2 diabetes mellitus with other skin complications (principal); B37.49 Other urogenital candidiasis; J45.909 Unspecified asthma, uncomplicated; L02.31 Cutaneous abscess of buttock; E87.1 Hypo-osmolality and hyponatremia; E11.9 Type 2 diabetes mellitus without complications; Z88.8 Allergy status to other drugs, medicaments and biological substances; L97.821 Non-pressure chronic ulcer of other part of left lower leg limited to breakdown of skin; H54.7 Unspecified visual loss; E78.00 Pure hypercholesterolemia, unspecified; J44.9 Chronic obstructive pulmonary disease, unspecified; K59.09 Other constipation; K21.9 Gastro-esophageal reflux disease without esophagitis; E11.21 Type 2 diabetes mellitus with diabetic nephropathy; M19.90 Unspecified osteoarthritis, unspecified site; M54.9 Dorsalgia, unspecified; G89.29 Other chronic pain; F32.A Depression, unspecified; F17.210 Nicotine dependence, cigarettes, uncomplicated; E11.65 Type 2 diabetes mellitus with hyperglycemia; E87.8 Other disorders of electrolyte and fluid balance, not elsewhere classified; N17.9 Acute kidney failure, unspecified; E83.52 Hypercalcemia; E88.09 Other disorders of plasma-protein metabolism, not elsewhere classified; R79.89 Other specified abnormal findings of blood chemistry; F15.10 Other stimulant abuse, uncomplicated; D72.829 Elevated white blood cell count, unspecified; E83.42 Hypomagnesemia; N18.30 Chronic kidney disease, stage 3 unspecified; E11.22 Type 2 diabetes mellitus with diabetic chronic kidney disease; I12.9 Hypertensive chronic kidney disease with stage 1 through stage 4 chronic kidney disease, or unspecified chronic kidney disease; B95.4 Other streptococcus as the cause of diseases classified elsewhere; R45.1 Restlessness and agitation; M25.511 Pain in right shoulder; E11.42 Type 2 diabetes mellitus with diabetic polyneuropathy; Z89.511 Acquired absence of right leg below knee; Z88.1 Allergy status to other antibiotic agents; Z79.899 Other long term (current) drug therapy; Z79.4 Long term (current) use of insulin; Z79.2 Long term (current) use of antibiotics; Z87.81 Personal history of (healed) traumatic fracture; Z98.890 Other specified postprocedural states; Z89.412 Acquired absence of left great toe; Z89.422 Acquired absence of other left toe(s); E78.5 Hyperlipidemia, unspecified
CPT/HCPCS: 10060; 36415; 80053; 80305; 81001; 82009; 83605; 85025; 87040 ×2; 87070; 87077; 87186; 87205; 96361; 96365; 96375; 99284; 99285; A9270; J0696; J1815; J3480; J7030; 82947; 83036; 83735; 86140; J1170; J1885; J2020; J2060; J2310; J2405; J3475; J3490

== ENCOUNTER 2024-12-20 19:57 | Inpatient (IN) | payer MEDICARE, MEDICAID ==
[2024-12-20 20:09] LABS: BASOPHILS PERCENT AUTO 0.2 % (0.0-1.0); EOSINOPHILS PERCENT AUTO 0.0 % (1.0-3.0); LYMPHOCYTES PERCENT AUTO 10.3 % (20.5-50.1); MONOCYTES PERCENT AUTO 10.3 % (2-8); NEUTROPHILS PERCENT AUTO 79.2 % (42.2-75.2); PLATELET COUNT,PLT 164 10^3/uL (150-450); RED BLOOD CELL COUNT 4.03 10^6/uL (4.6-6.2); WHITE BLOOD CELL COUNT,WBC 5.9 10^3/uL (5.0-10.0)
[2024-12-20 20:25] LABS: INR 1.1 (0.9-1.2); PTT,PARTIAL THROMBOPLSTIN TIME 37.9 SEC (22.0-34.0)
[2024-12-20 20:30] LABS: ALANINE AMINOTRANSFERASE,ALT 86 U/L (16-63); ASPARTATE AMNIOTRANSFERASE,AST 112 U/L (15-37); BILIRUBIN TOTAL 0.3 mg/dL (0.2-1.0); BLOOD UREA NITROGEN,BUN 66 mg/dL (7-18); CARBON DIOXIDE,CO2 23 mmol/L (21-32); CREATININE 3.98 mg/dL (0.70-1.30); GLUCOSE RANDOM 381 mg/dL (70-99); PROTEIN TOTAL,TP 7.7 g/dL (6.4-8.2)
[2024-12-20 20:31] LABS: LACTIC ACID 1.9 mmol/L (0.4-2.0)
[2024-12-20 20:33] LABS: A/G RATIO 0.43; CHLORIDE,CL 90 mmol/L (98-107); ESTIMATED GFR 16 mL/min (>=60); ETHANOL BLOOD MEDICAL < 3 mg/dL (0); POTASSIUM,K 4.3 mmol/L (3.5-5.1); SODIUM,NA 125 mmol/L (136-145)
[2024-12-20 21:19] LABS: BASE EXCESS VENOUS -3.4 mmol/l ((-2)-(+3)); BICARBONATE,VENOUS 23 mmol/l (19-25); O2 DELIVERY DEVICE ROOM AIR; O2 SATURATION VENOUS 74.1 % (60-80); PH,VENOUS 7.28 (7.31-7.41); PO2 VENOUS 56 mmHg (35-42)
[2024-12-20 22:17] LABS: APPEARANCE,URINE CLEAR (CLEAR); GLUCOSE,URINE 500 (NEGATIVE); OCCULT BLOOD,URINE LARGE (NEGATIVE)
[2024-12-20 22:21] LABS: MDMA (ECSTASY), URINE NEGATIVE (NEGATIVE); METHAMPHETAMINES,URINE NEGATIVE (NEGATIVE); OPIATES,URINE NEGATIVE (NEGATIVE)
[2024-12-20 22:22] LABS: AMPHETAMINES,URINE NEGATIVE (NEGATIVE); BARBITURATES,URINE NEGATIVE (NEGATIVE); OXYCODONE,URINE POSITIVE (NEGATIVE); PHENCYCLIDINE,URINE NEGATIVE (NEGATIVE); TCA,URINE POSITIVE (NEGATIVE)
[2024-12-20 22:27] LABS: EPITHELIAL CELLS,URINE RARE /HPF (NOT SEEN)
[2024-12-21] MEDS ORDERED: Metoprolol Tartrate 5 MG/5 ML SDV IVPUSH PRN (00:37)
[2024-12-21] MEDS ORDERED: hydrALAZINE 20 MG/ML SDV IVPUSH PRN (00:37)
[2024-12-21] MEDS ORDERED: Ondansetron 4 MG/2 ML SDV IVPUSH PRN (00:39)
[2024-12-21] MEDS ORDERED: Magnesium Hydroxide 400 MG/5 ML Susp 30 ML Cup PO PRN (00:39)
[2024-12-21] MEDS ORDERED: Sennosides/Docusate Sodium 50-8.6 MG Tab PO PRN (00:39)
[2024-12-21] MEDS ORDERED: 50% Dextrose in Water 50 ML Syringe IVPUSH PRN (01:00)
[2024-12-21] MEDS: Magnesium Sulfate 2 GM/50 mL 2 GM in Premix Bag 1 BAG IV ONE (02:29)
[2024-12-21] MEDS: Albumin Human 25 GM in Premix Bag 1 BAG IV SCH (02:29)
[2024-12-21] MEDS: Ampicillin/Sulbactam Na 3 GM in Sodium Chloride 0.9% 100 ML IV SCH (03:38)
[2024-12-21] MEDS ORDERED: Ampicillin/Sulbactam Na 1.5 GM in Sodium Chloride 0.9% 100 ML IV SCH (06:00)
[2024-12-21 06:27] LABS: BASOPHILS PERCENT AUTO 0.3 % (0.0-1.0); EOSINOPHILS PERCENT AUTO 0.3 % (1.0-3.0); LYMPHOCYTES PERCENT AUTO 19.1 % (20.5-50.1); MONOCYTES PERCENT AUTO 17.2 % (2-8); NEUTROPHILS PERCENT AUTO 63.1 % (42.2-75.2); PLATELET COUNT,PLT 117 10^3/uL (150-450); RED BLOOD CELL COUNT 3.16 10^6/uL (4.6-6.2); WHITE BLOOD CELL COUNT,WBC 3.8 10^3/uL (5.0-10.0)
[2024-12-21 07:00] LABS: ALANINE AMINOTRANSFERASE,ALT 69.0 U/L (16-63); ASPARTATE AMNIOTRANSFERASE,AST 75.0 U/L (15-37); BILIRUBIN TOTAL 0.3 mg/dL (0.2-1.0); BLOOD UREA NITROGEN,BUN 61.0 mg/dL (7-18); CARBON DIOXIDE,CO2 24.0 mmol/L (21-32); CHLORIDE,CL 99.0 mmol/L (98-107); CREATININE 3.85 mg/dL (0.70-1.30); EST CRCL DRUG DOSING (CG) 15.09 mL/min; GLUCOSE RANDOM 205.0 mg/dL (70-99); POTASSIUM,K 3.7 mmol/L (3.5-5.1); PROTEIN TOTAL,TP 6.7 g/dL (6.4-8.2); SODIUM,NA 135.0 mmol/L (136-145)
[2024-12-21 07:01] LABS: A/G RATIO 0.56; ESTIMATED GFR 17.0 mL/min (>=60)
[2024-12-21] MEDS ORDERED: Insulin Glarg,Human.Rec.Analog 100 Unit/ML 10 ML Vial SUBCUT SCH (09:00)
[2024-12-21] MEDS: Saccharomyces Boulardii (Probiotic) 250 MG Cap PO SCH (09:06)
[2024-12-21] MEDS: Bacitracin/Neomycin/Polymyxin B Oint 28.4 GM Tube TOP SCH (09:07)
[2024-12-21] MEDS: Insulin Glarg,Human.Rec.Analog 100 Unit/ML 10 ML Vial SUBCUT SCH (09:08)
[2024-12-21 10:12] LABS: T4 FREE 0.91 ng/dL (0.76-1.46); TSH ULTRASENSITIVE 0.21 uIU/mL (0.36-3.74)
[2024-12-21] MEDS: Non-Formulary Medication 1 Each (Gabapentin 600 MG Tablet) PO SCH (10:14)
[2024-12-21] MEDS: Non-Formulary Medication 1 Each (Duloxetine [Cymbalta] 60 MG Cap) PO SCH (10:14)
[2024-12-21] MEDS: Ergocalciferol (Vitamin D2) 1.25 MG Cap PO SCH (10:15)
[2024-12-21 10:53] LABS: PCO2 VENOUS 51 mmHg (41-51)
[2024-12-21] MEDS ORDERED: Acetaminophen/Butalbital/Caffeine 325-50-40 MG Tab PO PRN (11:18)
[2024-12-21] MEDS: Multivitamins with Iron/Calcium/Folic Acid/Minerals Tab PO SCH (22:05)
[2024-12-22] MEDS: Sodium Chloride 0.9% 10 ML Syringe FLUSH PRN (03:51)
[2024-12-22 06:08] LABS: BASOPHILS PERCENT AUTO 0.3 % (0.0-1.0); EOSINOPHILS PERCENT AUTO 1.1 % (1.0-3.0); LYMPHOCYTES PERCENT AUTO 14.9 % (20.5-50.1); MONOCYTES PERCENT AUTO 15.4 % (2-8); NEUTROPHILS PERCENT AUTO 68.3 % (42.2-75.2); PLATELET COUNT,PLT 129 10^3/uL (150-450); RED BLOOD CELL COUNT 3.39 10^6/uL (4.6-6.2); WHITE BLOOD CELL COUNT,WBC 6.6 10^3/uL (5.0-10.0)
[2024-12-22 06:35] LABS: ASPARTATE AMNIOTRANSFERASE,AST 43.0 U/L (15-37); BILIRUBIN TOTAL 0.4 mg/dL (0.2-1.0); BLOOD UREA NITROGEN,BUN 50.0 mg/dL (7-18); CARBON DIOXIDE,CO2 27.0 mmol/L (21-32); CHLORIDE,CL 97.0 mmol/L (98-107); CREATININE 3.48 mg/dL (0.70-1.30); EST CRCL DRUG DOSING (CG) 16.7 mL/min; GLUCOSE RANDOM 136.0 mg/dL (70-99); POTASSIUM,K 5.1 mmol/L (3.5-5.1); PROTEIN TOTAL,TP 7.8 g/dL (6.4-8.2); SODIUM,NA 133.0 mmol/L (136-145)
[2024-12-22 06:56] LABS: A/G RATIO 0.73; ESTIMATED GFR 19.0 mL/min (>=60)
[2024-12-22 07:07] LABS: ALANINE AMINOTRANSFERASE,ALT 55.0 U/L (16-63)
[2024-12-22] MEDS: Insulin Glarg,Human.Rec.Analog 100 Unit/ML 10 ML Vial SUBCUT SCH (23:28)
[2024-12-23 06:33] LABS: PLATELET COUNT,PLT 132 10^3/uL (150-450); RED BLOOD CELL COUNT 3.62 10^6/uL (4.6-6.2); WHITE BLOOD CELL COUNT,WBC 6.2 10^3/uL (5.0-10.0)
[2024-12-23 06:42] LABS: BASOPHILS PERCENT AUTO 0.3 % (0.0-1.0); EOSINOPHILS PERCENT AUTO 2.1 % (1.0-3.0); LYMPHOCYTES PERCENT AUTO 25.7 % (20.5-50.1); MONOCYTES PERCENT AUTO 15.9 % (2-8); NEUTROPHILS PERCENT AUTO 56.0 % (42.2-75.2)
[2024-12-23 06:43] LABS: ALANINE AMINOTRANSFERASE,ALT 41.0 U/L (16-63); ASPARTATE AMNIOTRANSFERASE,AST 32.0 U/L (15-37); BILIRUBIN TOTAL 0.4 mg/dL (0.2-1.0); BLOOD UREA NITROGEN,BUN 44.0 mg/dL (7-18); CARBON DIOXIDE,CO2 29.0 mmol/L (21-32); CHLORIDE,CL 99.0 mmol/L (98-107); CREATININE 2.73 mg/dL (0.70-1.30); EST CRCL DRUG DOSING (CG) 21.29 mL/min; GLUCOSE RANDOM 140.0 mg/dL (70-99); POTASSIUM,K 5.2 mmol/L (3.5-5.1); PROTEIN TOTAL,TP 8.0 g/dL (6.4-8.2); SODIUM,NA 134.0 mmol/L (136-145)
[2024-12-23 06:47] LABS: A/G RATIO 0.57; ESTIMATED GFR 26.0 mL/min (>=60)
[2024-12-23 07:11] LABS: EOSINOPHILS PERCENT MAN 1 % (1-3); LYMPHOCYTES PERCENT MAN 23 % (20-50); MONOCYTES PERCENT MAN 13 % (2-8); SEG NEUTROPHILS PERCENT MAN 63 % (42-75)
[2024-12-23] MEDS: Lidocaine 1% with EPINEPHrine 1:100,000 20 ML MDV INJECT ONE (18:12)
[2024-12-24 06:18] LABS: BASOPHILS PERCENT AUTO 0.5 % (0.0-1.0); EOSINOPHILS PERCENT AUTO 3.5 % (1.0-3.0); LYMPHOCYTES PERCENT AUTO 25.7 % (20.5-50.1); MONOCYTES PERCENT AUTO 9.7 % (2-8); NEUTROPHILS PERCENT AUTO 60.6 % (42.2-75.2); PLATELET COUNT,PLT 184 10^3/uL (150-450); RED BLOOD CELL COUNT 3.53 10^6/uL (4.6-6.2); WHITE BLOOD CELL COUNT,WBC 7.5 10^3/uL (5.0-10.0)
[2024-12-24 06:41] LABS: ALANINE AMINOTRANSFERASE,ALT 36.0 U/L (16-63); ASPARTATE AMNIOTRANSFERASE,AST 24.0 U/L (15-37); BILIRUBIN TOTAL 0.4 mg/dL (0.2-1.0); BLOOD UREA NITROGEN,BUN 41.0 mg/dL (7-18); CARBON DIOXIDE,CO2 31.0 mmol/L (21-32); CHLORIDE,CL 100.0 mmol/L (98-107); CREATININE 2.61 mg/dL (0.70-1.30); EST CRCL DRUG DOSING (CG) 22.26 mL/min; GLUCOSE RANDOM 136.0 mg/dL (70-99); POTASSIUM,K 4.3 mmol/L (3.5-5.1); PROTEIN TOTAL,TP 7.9 g/dL (6.4-8.2); SODIUM,NA 137.0 mmol/L (136-145)
[2024-12-24 06:48] LABS: A/G RATIO 0.52; ESTIMATED GFR 27.0 mL/min (>=60)
[2024-12-24 11:24] VITALS: BP 154/79; PULSE 80
[2024-12-24] MEDS ORDERED: Ampicillin/Sulbactam Na 3 GM in Sodium Chloride 0.9% 100 ML IV SCH (16:00)
[2024-12-24] MEDS ORDERED: CEFEPIME IV ONE (22:00)
[2024-12-24] MEDS ORDERED: SODIUM CHLORIDE 0.9% IV ONE (22:00)
== END 2024-12-24 14:15 | disposition home or self-care (01) | DRG 463 ==
LOC: DL.ED 19:57 → DL.MS 22:40
PROVIDERS: ADMIT Internal Medicine; ATTEND Internal Medicine
PROC: 3E03329 Introduction of Other Anti-infective into Peripheral Vein, Percutaneous Approach (ICD-10-PCS; principal; 2024-12-20)
PROC: 0JBR0ZZ Excision of Left Foot Subcutaneous Tissue and Fascia, Open Approach (ICD-10-PCS; 2024-12-23)
DX: T87.44 Infection of amputation stump, left lower extremity (principal); A41.02 Sepsis due to Methicillin resistant Staphylococcus aureus; G92.8 Other toxic encephalopathy; E43 Unspecified severe protein-calorie malnutrition; A41.9 Sepsis, unspecified organism; E87.1 Hypo-osmolality and hyponatremia; E87.20 Acidosis, unspecified; L03.116 Cellulitis of left lower limb; N17.9 Acute kidney failure, unspecified; H54.7 Unspecified visual loss; J44.89 Other specified chronic obstructive pulmonary disease; K59.09 Other constipation; K21.9 Gastro-esophageal reflux disease without esophagitis; E11.40 Type 2 diabetes mellitus with diabetic neuropathy, unspecified; M19.90 Unspecified osteoarthritis, unspecified site; M45.9 Ankylosing spondylitis of unspecified sites in spine; G89.29 Other chronic pain; F32.A Depression, unspecified; E11.51 Type 2 diabetes mellitus with diabetic peripheral angiopathy without gangrene; E11.22 Type 2 diabetes mellitus with diabetic chronic kidney disease; N18.30 Chronic kidney disease, stage 3 unspecified; T42.6X5A Adverse effect of other antiepileptic and sedative-hypnotic drugs, initial encounter; T40.2X5A Adverse effect of other opioids, initial encounter; E87.8 Other disorders of electrolyte and fluid balance, not elsewhere classified; E11.65 Type 2 diabetes mellitus with hyperglycemia; E83.42 Hypomagnesemia; E88.09 Other disorders of plasma-protein metabolism, not elsewhere classified; F15.10 Other stimulant abuse, uncomplicated; I12.9 Hypertensive chronic kidney disease with stage 1 through stage 4 chronic kidney disease, or unspecified chronic kidney disease; E11.628 Type 2 diabetes mellitus with other skin complications; Z89.511 Acquired absence of right leg below knee; Z89.432 Acquired absence of left foot; I10 Essential (primary) hypertension; Y92.89 Other specified places as the place of occurrence of the external cause; E78.00 Pure hypercholesterolemia, unspecified; Z79.01 Long term (current) use of anticoagulants; Z88.1 Allergy status to other antibiotic agents; Z68.32 Body mass index [BMI] 32.0-32.9, adult; Z79.4 Long term (current) use of insulin; Z79.899 Other long term (current) drug therapy
CPT/HCPCS: 36415; 70450; 71045; 72125; 73700-LT; 76770; 80053; 80305-QW; 80307; 81001; 82009; 82140; 82550; 82803; 82947; 83036; 83605; 83735; 83880; 84439; 84443; 84484; 85025; 85610; 85730; 86140; 87040; 87070; 87077; 87186; 93005; A9270-GY; J0295; J0692; J1171; J1271; J1815-GY; J3475; J3490; J7030; J7040; P9047